=== PATIENT | female | born 1970 | race Caucasian/White ===

== ENCOUNTER 2016-10-02 02:48 | Emergency (ER) | payer BC, OTHER ==
[2016-10-02] MEDS ORDERED: Morphine INJ* 4 MG/ML 1 ML CARPUJECT IV ONE (03:20)
[2016-10-02] MEDS ORDERED: NS 0.9% 1000 ML* 1,000 ML IV ONE (03:20)
[2016-10-02] MEDS ORDERED: Ondansetron INJ* 2 MG/ML VIAL IV ONE ×2 (03:20→04:39)
[2016-10-02 03:36] LABS: Hematocrit 42 % (35-47); Hemoglobin 14.1 g/dl (12.0-16.0); Mean Corpuscular HGB Conc 34 g/dl (31-36); Mean Corpuscular Hemoglobin 31 pg (27-31); Mean Corpuscular Volume 90 fL (80-97); Mean Platelet Volume 8 um3 (7.4-10.4); Red Cell Distribution Width 13 % (10.5-15); White Blood Count 5.6 10^3/ul (3.5-10.8)
[2016-10-02 03:48] LABS: ALT 10 U/L (7-52); AST 15 U/L (13-39); Albumin 4.1 g/dL (3.2-5.2); Alkaline Phosphatase 70 U/L (34-104); Anion Gap 6 mmol/L (2-11); BUN/Creatinine Ratio 21.2 (8-20); Blood Urea Nitrogen 14 mg/dL (6-24); CO2 Carbon Dioxide 22 mmol/L (22-32); Calcium 8.6 mg/dL (8.6-10.3); Chloride 106 mmol/L (101-111); EGFR African American 124.6 (>60); EGFR Non-African American 96.8 (>60); Globulin 2.7 g/dL (2-4); Glucose 106 mg/dL (70-100); Lipase 31 U/L (11.0-82.0); Potassium 3.7 mmol/L (3.5-5.0); Sodium 134 mmol/L (133-145); Total Protein 6.8 g/dL (6.4-8.9)
[2016-10-02 04:14] LABS: Urine Bacteria 1+ (Absent); Urine Bilirubin Negative (Negative); Urine Glucose Negative (Negative); Urine Nitrite Negative (Negative)
[2016-10-02] MEDS ORDERED: Ondansetron INJ* 2 MG/ML VIAL ONE (04:40)
[2016-10-02] MEDS ORDERED: Pantoprazole TAB (NF) 40 MG TAB PO ONE (06:29)
--- NOTE | 2016-10-02 06:33 | ED ---
Dominick Salas Matthew, scribed for Jaret Thurman on 10/02/16 at 0347 . Abdominal Pain/Female - HPI Summary HPI Summary: A 46 y/o female presents to the ED with Epigastric and RLQ abdominal pain since 07:30 yesterday. The pain is rated 7/10 in severity, and intermittently radiates to the back. Associated symptoms include nausea and diarrhea - since 4 days ago. The patient denies chest pain, SOB, urinary symptoms, and vaginal discharge. SHx includes cholecystectomy. - History of Current Complaint Chief Complaint: EDAbdPain Stated Complaint: VOMITING/ABD PAIN/NAUSEA Time Seen by Provider: 10/02/16 02:58 Hx Obtained From: Patient Hx Last Menstrual Period: pt had an ablasion and states does not get a menses ?: No Onset/Duration: Gradual Onset Timing: Constant Severity Initially: Moderate Severity Currently: Moderate Pain Intensity: 7 Pain Scale Used: 0-10 Numeric Location: Discrete At: RLQ, Epigastric Radiates: Yes Radiates to: Back Associated Signs and Symptoms: Positive: Back Pain, Nausea, Diarrhea. Negative : Chest Pain, Urinary Symptoms, Vaginal Bleeding, Vaginal Discharge Allergies/Adverse Reactions: Allergies Allergy/AdvReac Type Severity Reaction Status Date / Time Pseudoephedrine Allergy Severe Anaphylatic Verified 10/02/16 03:45 [From Sudafed] Shock Codeine Allergy Intermediate chest Verified 10/02/16 03:45 pain/adominal pain Clindamycin Allergy Mild Rash Verified 10/02/16 03:45 PMH/Surg Hx/FS Hx/Imm Hx Endocrine/Hematology History: Denies: Hx Diabetes, Hx Thyroid Disease Cardiovascular History: Denies: Hx Congestive Heart Failure, Hx Hypertension Respiratory History: Reports: Hx Sleep Apnea - previous dx KRISTOPHER, not using CPAP Denies: Hx Asthma, Hx Chronic Obstructive Pulmonary Disease (COPD) GI History: Reports: Hx Gastroesophageal Reflux Disease Denies: Hx Ulcer History: Denies: Hx Renal Disease Neurological History: Reports: Hx Migraine Psychiatric History: Reports: Hx Anxiety, Hx Depression, Hx Community Mental Health Tx - Cancer History Hx Chemotherapy: No Hx Radiation Therapy: No - Surgical History Surgery Procedure, Year, and Place: breast reduction 2000. tubal ligation 2007. gall bladder removed 1989. benign tumor removed from uterus 12/07/12. GANGLION [facility]. Uterine Ablation surgery. Uterine Ablation 2013. D&C Infectious Disease History: No Infectious Disease History: Denies: Hx Clostridium Difficile, Hx Hepatitis, Hx Human Immunodeficiency Virus (HIV), Hx of Known/Suspected MRSA, Hx Shingles, Hx Tuberculosis, Hx Known/ Suspected VRE, Hx Known/Suspected VRSA, History Other Infectious Disease, Traveled Outside the [place] in Last 30 Days - Family History Known Family History: Positive: Respiratory Disease - asthma - Social History Alcohol Use: None Substance Use Type: Reports: None Hx Tobacco Use: No Smoking Status (MU): Never Smoked Tobacco Have You Smoked in the Last Year: No Review of Systems Constitutional: Negative Eyes: Negative ENT: Negative Cardiovascular: Negative Respiratory: Negative Negative: Shortness Of Breath Positive: Abdominal Pain - epigastric, RLQ, Diarrhea, Nausea Genitourinary: Negative Musculoskeletal: Negative Skin: Negative Positive: Headache Psychological: Normal All Other Systems Reviewed And Are Negative: Yes Physical Exam Triage Information Reviewed: Yes Vital Signs On Initial Exam: Initial Vitals Temp Pulse Resp BP Pulse Ox 97.7 F 82 16 118/68 97 10/02/16 03:00 10/02/16 03:00 10/02/16 03:00 10/02/16 03:00 10/02/16 03:00 Vital Signs Reviewed: Yes Appearance: Positive: Well-Appearing, No Pain Distress Skin: Positive: Warm, Skin Color Reflects Adequate Perfusion, Dry Head/Face: Positive: Normal Head/Face Inspection Eyes: Positive: EOMI, BEBETO ENT: Positive: Normal ENT inspection Neck: Positive: Supple, Nontender Respiratory/Lung Sounds: Positive: Clear to Auscultation, Breath Sounds Present Cardiovascular: Positive: RRR Abdomen Description: Positive: Soft, Other: - epigastric and RLQ tenderness Bowel Sounds: Positive: Present Musculoskeletal: Positive: Normal, Strength/ROM Intact Neurological: Positive: Normal, Sensory/Motor Intact, Alert, Oriented to Person Place, Time Psychiatric: Positive: Normal, Affect/Mood Appropriate Diagnostics - Vital Signs Vital Signs Temp Pulse Resp BP Pulse Ox 10/02/16 03:06 87 97 10/02/16 03:05 118/68 10/02/16 03:00 97.7 F 82 16 118/68 97 - Laboratory Result Diagrams: 10/02/16 03:10 10/02/16 03:10 Lab Statement: Any lab studies that have been ordered have been reviewed, and results considered in the medical decision making process. - Radiology CXR Xray Interpretation: No Acute Changes Radiology Interpretation Completed By: ED Physician - CT A/P WO CT CT Interpretation: No Acute Changes - No localizing signs for acute pathology. CT Interpretation Completed By: Radiologist - EKG 03:21 Cardiac Rate: NL - 77 bpm EKG Rhythm: Sinus Rhythm EKG Interpretation: No Acute Changes Abdominal Pain Fem Course/Dx - Course Course Of Treatment: A 46 y/o female presents to the ED with Epigastric RLQ abdominal pain. Labs were reviewed. CXR shows no active cardiopulmonary disease. CT A/P shows no localizing signs for acute pathology. In the ED course , the patient was given Zofran, morphine, and 1L of IV fluids. The patient states that she feels better, so she will be discharged home and follow-up with her PCP. - Diagnoses Provider Diagnoses: Nonspecific abdominal pain Discharge - Discharge Plan Condition: Stable Disposition: HOME Prescriptions: Pantoprazole TAB (NF) [Protonix TAB (NF)] 40 mg PO DAILY #30 tab Patient Education Materials: Pantoprazole (By mouth), Abdominal Pain (ED) Referrals: Lor Roe MD [Primary Care Provider] - 3 Days Additional Instructions: Please follow-up with your primary care physician in 3 days. The documentation as recorded by the Dominick cain Matthew accurately reflects the service I personally performed and the decisions made by , Jaret Thurman.
[2016-10-02] MEDS ORDERED: Omeprazole CAP* 20 MG PO ONE (07:00)
[2016-10-02 07:01] VITALS: BP 102/66
--- NOTE | 2016-10-02 08:03 | RAD ---
HISTORY: Abdominal pain COMPARISONS: 07/15/2013 VIEWS: 2: Frontal dual-energy and lateral views of the chest. FINDINGS: CARDIOMEDIASTINAL SILHOUETTE: The cardiomediastinal silhouette is normal. MICHAEL: The michael are normal. PLEURA: The costophrenic angles are sharp. No pleural abnormalities are noted. LUNG PARENCHYMA: The lungs are clear. ABDOMEN: The upper abdomen is clear. There is no subphrenic gas. BONES AND SOFT TISSUES: No bone or soft tissue abnormalities are noted. OTHER: None. IMPRESSION: NO ACTIVE CARDIOPULMONARY DISEASE.
--- NOTE | 2016-10-02 08:19 | RAD ---
CLINICAL HISTORY: Abdominal pain COMPARISON: Similar CT of the abdomen and pelvis dated 10/03/2009 TECHNIQUE: Oral contrast only CT examination of the abdomen and pelvis from the lung bases through the initial tuberosities. FINDINGS: VISUALIZED LUNG BASES: The visualized lung bases are grossly clear. There is no pleural effusion. ABDOMEN AND PELVIS: Evaluation of the solid organs and vasculature is limited without intravenous contrast. The liver, pancreas and adrenal glands are grossly normal in appearance. The gallbladder is surgically absent. The spleen is mildly enlarged measuring 12.3 cm in greatest axial dimension similar to the previous CT examination. The kidneys are normal in appearance without focal mass, calcification or signs of hydronephrosis. The oral contrast has progressed as far as the rectosigmoid colon. The small and large bowel are not distended. The cecal appendix is not discretely visualized, but there are no acute inflammatory changes of the right lower quadrant to indicate acute appendicitis. There is no gross retroperitoneal or mesenteric lymphadenopathy. The pelvic viscera is normal in appearance. The abdominal aorta and iliac arteries are normal in course and diameter. Degenerative changes include multilevel loss of intervertebral disc height involving the lower thoracic and lumbar spine.There are no sinister bone lesions. IMPRESSION: Chronic CT findings as described in the body the report without acute abnormalities including acute inflammatory change of the gastrointestinal tract or obstructive uropathy.
== END 2016-10-02 07:00 | disposition home or self-care (01) ==
LOC: ED 02:48
DX: R10.31 Right lower quadrant pain (principal); R10.13 Epigastric pain; R19.7 Diarrhea, unspecified; R11.0 Nausea; R51 Headache
CPT/HCPCS: 36415; 71020; 74176; 80053; 81003; 81015; 83690; 84484; 84702; 85025; 85610; 85730; 87086; 93005; 96361; 96374; 96375; 99284; A9270-GY; J2270; J2405

== ENCOUNTER 2016-10-16 07:00 | Emergency (ER) | payer BC ==
[2016-10-16 19:11] VITALS: BP 155/100
--- NOTE | 2016-10-16 20:04 | UC ---
Throat Pain/Nasal Chris HPI - HPI Summary HPI Summary: complaint of cough and nasal congestion which started 2 days ago cough is worse at night sore throat frequent headaches voice has been hoarse for 1 day or so denies fevr and chills, muscle achiness N/V/D has been taking therafulu and tylenol with some relief - History of Current Complaint Chief Complaint: UCRespiratory Stated Complaint: SORE THROAT Time Seen by Provider: 10/16/16 19:57 Hx Obtained From: Patient Hx Last Menstrual Period: UTERINE ABLATION - Allergies/Home Medications Allergies/Adverse Reactions: Allergies Allergy/AdvReac Type Severity Reaction Status Date / Time Pseudoephedrine Allergy Severe Anaphylatic Verified 10/16/16 19:11 [From Sudafed] Shock Codeine Allergy Intermediate chest Verified 10/16/16 19:11 pain/adominal pain Clindamycin Allergy Mild Rash Verified 10/16/16 19:11 PMH/Surg Hx/FS Hx/Imm Hx Previously Healthy: Yes Endocrine History Of: Denies: Diabetes, Thyroid Disease Cardiovascular History Of: Denies: Cardiac Disorders, Hypertension, Congestive Heart Failure Respiratory History Of: Denies: COPD, Asthma GI/ History Of: Denies: Ulcer, Renal Disease Neurological History Of: Reports: Migraine Psychological History Of: Reports: Anxiety, Depression Cancer History Of: Denies: Breast Cancer - Surgical History Surgical History: Yes Surgery Procedure, Year, and Place: breast reduction 2000. tubal ligation 2007. gall bladder removed 1989. benign tumor removed from uterus 12/07/12. GANGLION [facility]. Uterine Ablation surgery. Uterine Ablation 2012. D&C - Family History Known Family History: Positive: Respiratory Disease - asthma Negative: Hypertension, Diabetes - Social History Occupation: Employed Full-time Lives: With Family Alcohol Use: None Substance Use Type: None Smoking Status (MU): Never Smoked Tobacco Have You Smoked in the Last Year: No - Immunization History Most Recent Influenza Vaccination: June 24, 2015 Most Recent Tetanus Shot: up to date - she thinks in 2014 she received it Review of Systems Eyes: Negative ENT: Sore Throat, Nasal Discharge Respiratory: Cough Cardiovascular: Negative Gastrointestinal: Negative Genitourinary: Negative Motor: Negative Neurovascular: Negative Musculoskeletal: Negative Neurological: Negative Psychological: Negative All Other Systems Reviewed And Are Negative: Yes Physical Exam Triage Information Reviewed: Yes Appearance: No Pain Distress, Well-Nourished, Obese Vital Signs: Initial Vital Signs Temp 98.1 F 10/16/16 19:08 Pulse 77 10/16/16 19:08 Resp 16 10/16/16 19:08 BP 155/100 10/16/16 19:08 Pulse Ox 98 10/16/16 19:08 Vital Signs Reviewed: Yes Eyes: Positive: Conjunctiva Clear ENT: Positive: Pharyngeal erythema, Nasal drainage, TMs normal. Negative: Nasal congestion Neck: Positive: No Lymphadenopathy Respiratory: Positive: Lungs clear, Normal breath sounds, No respiratory distress Cardiovascular: Positive: RRR, No Murmur, Pulses Normal Abdomen Description: Positive: Nontender, Soft Bowel Sounds: Positive: Present Musculoskeletal: Positive: No Edema Neurological Exam: Normal Psychological Exam: Normal Skin Exam: Normal Throat Pain/Nasal Course/Dx - Differential Dx/Diagnosis Differential Diagnosis/HQI/PQRI: Pharyngitis, URI Provider Diagnoses: URI Discharge - Discharge Plan Condition: Stable Disposition: HOME Prescriptions: Benzonatate CAP* [Tessalon CAP*] 100 mg PO TID PRN #30 cap PRN Reason: Cough Patient Education Materials: Upper Respiratory Infection (ED) Forms: *Work Release Referrals: Lor Roe MD [Primary Care Provider] - Additional Instructions: VIRAL UPPER RESPIRATORY INFECTION (COMMON COLD) What is Viral Upper Respiratory Infection? Viral upper respiratory infection is the medical term for the common cold. Respiratory infections can be caused by either a virus or bacteria. The common cold is caused by a virus. The virus travels through the air and can be passed easily from one person to another. This is one reason that it is so important to cover your mouth when you cough or sneeze. When you cover your mouth you will get the virus on your hands. If you touch something with that hand the virus is spread to the object you touch. Because of this you should be sure to wash your hands often when you have a cold. Symptoms usually begin 1 to 3 days after the virus takes hold in your body. Other people can catch your cold even before you start to notice symptoms, which is one reason why colds are hard to prevent. Symptoms May Include: Scratchiness or tickling in the throat Sore throat Stuffy nose Generalized aches and pains Coughing or sneezing Feeling tired Treatment Recommendations: Drink plenty of clear, nonalcoholic fluids, such as water, sports drinks, or juice. For example, an average adult should drink 8 ounces every hour, a child 6 to 10 years should drink 4 ounces every hour, and a child under 6 should drink 1 to 2 ounces every hour. You should rest as much as possible. You can use a cool-mist humidifier or steam vaporizer to increase air moisture. This will make it easier to breathe. Remember that a steam vaporizer may contain hot water that can cause severe simmons. If you smoke, stopsmoke irritates bronchial passages. If you are coughing up mucus, and milk seems to make the sputum thicker, do not eat or drink foods that contain milk. You want to try to cough up mucous whenever possible so that you dont get pneumonia. Do not use cough suppressant medicine without your healthcare providers [place]. You should take all medications prescribed until completely gone, or as instructed. Non-prescription medicine such as acetaminophen (Tylenol) or ibuprofen (Motrin , Advil) may help your aches, pains, and fever. Do not take someone else's medicine, or penicillin tablets that you may have saved. You could cause a more serious problem than you already have. Don't bundle up to sweat out a fever. It only makes your fever worse. If you feel cold, cover up; if you feel warm, dress lightly.
== END 2016-10-16 20:08 | disposition home or self-care (01) ==
LOC: UCEAST 17:56
DX: J06.9 Acute upper respiratory infection, unspecified (principal); Z88.5 Allergy status to narcotic agent; Z88.1 Allergy status to other antibiotic agents
CPT/HCPCS: 99212; G0463

== ENCOUNTER 2016-10-22 21:19 | Emergency (ER) | payer BC ==
[2016-10-22 21:40] VITALS: BP 139/88
[2016-10-22] MEDS ORDERED: HYDROcodone/ACETAMIN 5-325 MG* 1 TAB PO ONE (22:06)
--- NOTE | 2016-10-22 22:17 | UC ---
Respiratory Complaint HPI - HPI Summary HPI Summary: coughing, congested, ST, malaise, headache, neck pain, fatigue for 9 days. Was seen 6days ago, dx URI, "still coughing." Using OTC meds, not helping the cough which keeps her awake at night. - History of Current Complaint Chief Complaint: UCGeneralIllness Stated Complaint: COUGH Time Seen by Provider: 10/22/16 21:52 Hx Obtained From: Patient Hx Last Menstrual Period: UTERINE ABLATION Onset/Duration: Gradual Onset, Lasting Days - 8 Timing: Constant Severity Initially: Mild Severity Currently: Mild Character: Cough: Productive - occasional phlegm Aggravating Factors: Exertion, Recumbent Position Associated Signs And Symptoms: Positive: Chills, URI, Nasal Congestion, Hoarseness, Sinus Discomfort - Risk Factors Pulmonary Embolism Risk Factors: Negative Cardiac Risk Factors: Negative Pseudomonas Risk Factors: Negative Tuberculosis Risk Factors: Negative - Allergies/Home Medications Allergies/Adverse Reactions: Allergies Allergy/AdvReac Type Severity Reaction Status Date / Time Pseudoephedrine Allergy Severe Anaphylatic Verified 10/16/16 19:11 [From Sudafed] Shock Codeine Allergy Intermediate chest Verified 10/16/16 19:11 pain/adominal pain Clindamycin Allergy Mild Rash Verified 10/16/16 19:11 PMH/Surg Hx/FS Hx/Imm Hx Endocrine History Of: Denies: Diabetes, Thyroid Disease Cardiovascular History Of: Denies: Cardiac Disorders, Hypertension, Congestive Heart Failure Respiratory History Of: Denies: COPD, Asthma GI/ History Of: Denies: Ulcer, Renal Disease Neurological History Of: Reports: Migraine Psychological History Of: Reports: Anxiety, Depression Cancer History Of: Denies: Breast Cancer - Surgical History Surgical History: Yes Surgery Procedure, Year, and Place: breast reduction 2000. tubal ligation 2007. gall bladder removed 1989. benign tumor removed from uterus 12/07/12. [facility]GLION [facility]. Uterine Ablation surgery. Uterine Ablation 2012. D&C - Family History Known Family History: Positive: Respiratory Disease - asthma Negative: Hypertension, Diabetes - Social History Occupation: Employed Full-time Lives: With Family Alcohol Use: None Substance Use Type: None Smoking Status (MU): Never Smoked Tobacco Have You Smoked in the Last Year: No - Immunization History Most Recent Influenza Vaccination: June 24, 2015 Most Recent Tetanus Shot: up to date - she thinks in 2014 she received it Review of Systems Constitutional: Chills, Fatigue Skin: Negative Eyes: Negative ENT: Sore Throat, Nasal Discharge Respiratory: Cough Cardiovascular: Negative Gastrointestinal: Negative Genitourinary: Negative Motor: Negative Neurovascular: Negative Musculoskeletal: Myalgia, Other: - neck muscle pain Neurological: Headache, Weakness Psychological: Negative All Other Systems Reviewed And Are Negative: Yes Physical Exam Triage Information Reviewed: Yes Appearance: Well-Appearing, No Pain Distress, Well-Nourished Vital Signs: Initial Vital Signs Temp 99.0 F 10/22/16 21:35 Pulse 71 10/22/16 21:35 Resp 18 10/22/16 21:35 BP 139/88 10/22/16 21:35 Pulse Ox 97 10/22/16 21:35 Vital Signs Reviewed: Yes Eye Exam: Normal ENT: Positive: Pharynx normal, Nasal congestion, Nasal drainage, TMs normal, Muffled/hoarse voice - hoarse. Negative: Tonsillar swelling, Tonsillar exudate , Trismus Neck: Positive: Tenderness @ - mild posterior muscles Respiratory Exam: Normal Respiratory: Positive: Lungs clear, Normal breath sounds, No respiratory distress, No accessory muscle use Cardiovascular Exam: Normal Abdominal Exam: Normal Musculoskeletal Exam: Normal Neurological Exam: Normal Psychological Exam: Normal Skin Exam: Normal UC Diagnostic Evaluation - Laboratory O2 Sat by Pulse Oximetry: 97 Respiratory Course/Dx - Differential Dx/Diagnosis Differential Diagnosis/HQI/PQRI: Bronchitis, Lower Resp Infection, Sinusitis Provider Diagnoses: URI Discharge - Discharge Plan Condition: Stable Disposition: HOME Prescriptions: Albuterol HFA INHALER* [Ventolin HFA Inhaler*] 1 - 2 puff INH Q4H PRN #1 mdi PRN Reason: Cough Hydrocodone W/ Homatropine [Tussigon] 1 tab PO Q6HR PRN #30 tab MDD 4 tab PRN Reason: Cough Patient Education Materials: Upper Respiratory Infection (ED) Forms: *Work Release Referrals: Lor Roe MD [Primary Care Provider] -
== END 2016-10-22 22:16 | disposition home or self-care (01) ==
LOC: UCEAST 21:19
DX: J06.9 Acute upper respiratory infection, unspecified (principal); Z88.5 Allergy status to narcotic agent; Z88.1 Allergy status to other antibiotic agents; Z88.8 Allergy status to other drugs, medicaments and biological substances; Z90.49 Acquired absence of other specified parts of digestive tract
CPT/HCPCS: 99212; G0463

== ENCOUNTER 2017-02-23 14:31 | Emergency (ER) | payer SELFPAY ==
[2017-02-23] MEDS ORDERED: Ibuprofen TAB* 400 MG PO ONE (14:47)
[2017-02-23 14:49] VITALS: BP 132/67
[2017-02-23] MEDS ORDERED: Ibuprofen TAB* 400 MG ONE (14:52)
--- NOTE | 2017-02-23 15:36 | UC ---
Throat Pain/Nasal Chris HPI - HPI Summary HPI Summary: SORE THROAT FEVER RASH SINCE LAST NIGHT. - History of Current Complaint Chief Complaint: UCRespiratory Stated Complaint: URI Time Seen by Provider: 02/23/17 14:47 Hx Obtained From: Patient Hx Last Menstrual Period: does not get Onset/Duration: Gradual Onset, Lasting Hours, Still Present Severity: Moderate Cough: None Associated Signs & Symptoms: Positive: Dysphagia, Hoarseness, Fever - Epiglottits Risk Factors Epiglottis Risk Factors: Negative - Allergies/Home Medications Allergies/Adverse Reactions: Allergies Allergy/AdvReac Type Severity Reaction Status Date / Time Pseudoephedrine Allergy Severe Anaphylatic Verified 10/16/16 19:11 [From Sudafed] Shock Codeine Allergy Intermediate chest Verified 10/16/16 19:11 pain/adominal pain Clindamycin Allergy Mild Rash Verified 10/16/16 19:11 PMH/Surg Hx/FS Hx/Imm Hx Previously Healthy: Yes - Surgical History Surgical History: Yes Surgery Procedure, Year, and Place: breast reduction 2000. tubal ligation 2007. gall bladder removed 1989. benign tumor removed from uterus 12/07/12. GANGLION CYST. Uterine Ablation surgery. Uterine Ablation 2012. D&C - Family History Known Family History: Positive: Respiratory Disease - asthma Negative: Hypertension, Diabetes - Social History Occupation: Employed Full-time Lives: With Family Alcohol Use: None Substance Use Type: None Smoking Status (MU): Never Smoked Tobacco Have You Smoked in the Last Year: No - Immunization History Most Recent Influenza Vaccination: June 24, 2015 Most Recent Tetanus Shot: up to date - she thinks in 2014 she received it Review of Systems Constitutional: Fever, Chills Skin: Negative Eyes: Negative ENT: Sore Throat Respiratory: Negative Cardiovascular: Negative Gastrointestinal: Negative Genitourinary: Negative Motor: Negative Neurovascular: Negative Musculoskeletal: Negative Neurological: Negative Psychological: Negative All Other Systems Reviewed And Are Negative: Yes Physical Exam Triage Information Reviewed: Yes Appearance: No Pain Distress, Well-Nourished, Ill-Appearing Vital Signs: Initial Vital Signs Temp 102.0 F 02/23/17 14:44 Pulse 106 02/23/17 14:44 Resp 20 02/23/17 14:44 BP 132/67 02/23/17 14:44 Pulse Ox 100 02/23/17 14:44 Vital Signs Reviewed: Yes Eye Exam: Normal ENT: Positive: Hearing grossly normal, Pharyngeal erythema, TMs normal, Tonsillar swelling Dental Exam: Normal Neck exam: Normal Neck: Positive: Supple, Nontender, No Lymphadenopathy Respiratory Exam: Normal Respiratory: Positive: Chest non-tender, Lungs clear, Normal breath sounds, No respiratory distress, No accessory muscle use Cardiovascular Exam: Normal Cardiovascular: Positive: RRR, No Murmur Abdominal Exam: Normal Musculoskeletal Exam: Normal Musculoskeletal: Positive: Strength Intact Neurological Exam: Normal Psychological Exam: Normal Skin Exam: Normal Throat Pain/Nasal Course/Dx - Differential Dx/Diagnosis Differential Diagnosis/HQI/PQRI: Pharyngitis, Tonsillitis, URI Provider Diagnoses: STREP TONSILLITIS Discharge - Discharge Plan Condition: Stable Disposition: HOME Prescriptions: Amoxicillin (*) [Amoxicillin 875 MG (*)] 875 mg PO BID #20 tab Patient Education Materials: Strep Throat (ED) Forms: *Work Release Referrals: Lor Roe MD [Primary Care Provider] -
== END 2017-02-23 15:26 | disposition home or self-care (01) ==
LOC: UCEAST 14:31
DX: J03.00 Acute streptococcal tonsillitis, unspecified (principal); Z88.5 Allergy status to narcotic agent; Z88.1 Allergy status to other antibiotic agents; Z88.8 Allergy status to other drugs, medicaments and biological substances; Z90.49 Acquired absence of other specified parts of digestive tract
CPT/HCPCS: 87651; 99212; A9270-GY; G0463

== ENCOUNTER 2017-03-22 11:35 | Emergency (ER) | payer SELFPAY ==
[2017-03-22 13:53] VITALS: BP 121/80
--- NOTE | 2017-03-22 14:40 | UC ---
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, nonknown injury - History of Current Complaint Hx Obtained From: Patient Hx Last Menstrual Period: ablation 2013 ?: No Onset/Duration: Gradual Onset, Lasting Weeks - 4, Still Present Severity Initially: Moderate Severity Currently: Moderate Pain Intensity: 5 Pain Scale Used: 0-10 Numeric Aggravating Factor(s): Standing, Ambulation - working Alleviating Factor(s): Rest, Elevation Able to Bear Weight: Yes <Arcelia Gage - Last Filed: 03/24/17 15:41> <Marely Frias - Last Filed: 03/24/17 16:14> - History of Current Complaint Chief Complaint: UCLowerExtremity Stated Complaint: FOOT PAIN Time Seen by Provider: 03/22/17 14:37 - Allergies/Home Medications Allergies/Adverse Reactions: Allergies Allergy/AdvReac Type Severity Reaction Status Date / Time Pseudoephedrine Allergy Severe Anaphylatic Verified 03/22/17 11:55 [From Sudafed] Shock Codeine Allergy Intermediate chest Verified 03/22/17 11:55 pain/adominal pain Clindamycin Allergy Mild Rash Verified 03/22/17 11:55 PMH/Surg Hx/FS Hx/Imm Hx Previously Healthy: Yes - Surgical History Surgical History: Yes Surgery Procedure, Year, and Place: breast reduction 2000. tubal ligation 2007. gall bladder removed 1989. benign tumor removed from uterus 12/07/12. GANGLION CYST. Uterine Ablation surgery. Uterine Ablation 2012. D&C - Family History Known Family History: Positive: Respiratory Disease - asthma Negative: Hypertension, Diabetes - Social History Occupation: Employed Full-time Lives: With Family Alcohol Use: None Substance Use Type: None Smoking Status (MU): Never Smoked Tobacco Have You Smoked in the Last Year: No - Immunization History Most Recent Influenza Vaccination: June 24, 2015 Most Recent Tetanus Shot: up to date - she thinks in 2014 she received it <Arcelia Gage - Last Filed: 03/24/17 15:41> Review of Systems Constitutional: Negative Skin: Negative Eyes: Negative ENT: Negative Respiratory: Negative Cardiovascular: Negative Gastrointestinal: Negative Genitourinary: Negative Motor: Negative Neurovascular: Negative Musculoskeletal: Arthralgia - right foot Neurological: Negative Psychological: Negative All Other Systems Reviewed And Are Negative: Yes <Arcelia Gage - Last Filed: 03/24/17 15:41> Physical Exam Triage Information Reviewed: Yes Appearance: Well-Appearing, No Pain Distress, Well-Nourished Vital Signs: Initial Vital Signs Temp 98.7 F 03/22/17 11:51 Pulse 68 03/22/17 11:51 Resp 20 03/22/17 11:51 BP 115/74 03/22/17 11:51 Pulse Ox 99 03/22/17 11:51 Vital Signs Reviewed: Yes Eye Exam: Normal Eyes: Positive: Conjunctiva Clear ENT Exam: Normal ENT: Positive: Normal ENT inspection, Hearing grossly normal. Negative: Nasal congestion, Nasal drainage, Trismus, Muffled/hoarse voice Dental Exam: Normal Neck exam: Normal Neck: Positive: Supple, Nontender, No Lymphadenopathy Respiratory Exam: Normal Respiratory: Positive: Chest non-tender, No respiratory distress, No accessory muscle use Cardiovascular Exam: Normal Cardiovascular: Positive: RRR, Pulses Normal, Brisk Capillary Refill Musculoskeletal Exam: Normal Musculoskeletal: Positive: Strength Intact, ROM Intact, No Edema Neurological Exam: Normal Neurological: Positive: Alert, Muscle Tone Normal Psychological Exam: Normal Skin Exam: Normal <Arcelia Gage - Last Filed: 03/24/17 15:41> Vital Signs: Initial Vital Signs Temp 98.7 F 03/22/17 11:51 Pulse 68 03/22/17 11:51 Resp 03/22/17 11:51 BP 115/74 03/22/17 11:51 Pulse Ox 99 03/22/17 11:51 <Marely Frias - Last Filed: 03/24/17 16:14> Lower Extremity Course/Dx - Course Course Of Treatment: cam boot, nsaids, ice follow with podiatry - Differential Dx/Diagnosis Differential Diagnosis/HQI/PQRI: Contusion, Fracture (Closed), Sprain, Strain Provider Diagnoses: Right foot pain--repeatitive stress injury <Arcelia Gage - Last Filed: 03/24/17 15:41> Discharge <Arcelia Gage - Last Filed: 03/24/17 15:41> <Marely Frias - Last Filed: 03/24/17 16:14> - Discharge Plan Condition: Stable Disposition: HOME Prescriptions: Naproxen Sodium [Naproxen Sodium 500 MG TAB] 500 mg PO BID PRN #28 tab PRN Reason: foot pain Patient Education Materials: Foot Sprain (ED), Ice Pack Application (ED) Forms: *Work Release Referrals: Lor Roe MD [Primary Care Provider] - 1 Week Sunny Mirza DPM [Doctor of Podiatric Medicine] - As Soon As Possible Attestation Statement User Type: Provider - I was available for consult. This patient was seen by the [facility]. The patient was not presented to, seen by, or examined by me. -Leida <Marely Frias - Last Filed: 03/24/17 16:14>
== END 2017-03-22 15:00 | disposition home or self-care (01) ==
LOC: UCEAST 11:35
DX: M79.671 Pain in right foot (principal); Z88.1 Allergy status to other antibiotic agents; Z88.5 Allergy status to narcotic agent
CPT/HCPCS: 99213; G0463

== ENCOUNTER 2017-08-02 11:00 | Emergency (ER) | payer BC ==
[2017-08-02] MEDS ORDERED: Aspirin Low Dose CHEW TAB* 81 MG PO ONE (11:17)
[2017-08-02 12:06] LABS: Hematocrit 42 % (35-47); Hemoglobin 14.4 g/dl (12.0-16.0); Mean Corpuscular HGB Conc 34 g/dl (31-36); Mean Corpuscular Hemoglobin 31 pg (27-31); Mean Corpuscular Volume 90 fL (80-97); Mean Platelet Volume 8 um3 (7.4-10.4); Red Blood Count 4.65 10^6/ul (4.0-5.4); Red Cell Distribution Width 13 % (10.5-15); White Blood Count 5.6 10^3/ul (3.5-10.8)
--- NOTE | 2017-08-02 12:17 | RAD ---
INDICATION: Chest pain. COMPARISON: Comparison is made with a prior study from October 02, 2016. TECHNIQUE: A portable view of the chest was obtained. FINDINGS: Cardiac and mediastinal contours appear to be within normal limits. The lungs are clear. No pleural effusion is seen. IMPRESSION: NO EVIDENCE FOR ACUTE DISEASE.
[2017-08-02 12:25] LABS: ALT 10 U/L (7-52); AST 16 U/L (13-39); Albumin 4.2 g/dL (3.2-5.2); Alkaline Phosphatase 61 U/L (34-104); Anion Gap 5 mmol/L (2-11); BUN/Creatinine Ratio 17.9 (8-20); Blood Urea Nitrogen 12 mg/dL (6-24); CO2 Carbon Dioxide 26 mmol/L (22-32); Calcium 9.3 mg/dL (8.6-10.3); Chloride 105 mmol/L (101-111); Creatine Kinase 64 U/L (10-223); EGFR African American 122.4 (>60); EGFR Non-African American 95.2 (>60); Globulin 2.7 g/dL (2-4); Glucose 109 mg/dL (70-100); Potassium 4.2 mmol/L (3.5-5.0); Sodium 136 mmol/L (133-145); Total Protein 6.9 g/dL (6.4-8.9)
[2017-08-02] MEDS ORDERED: hydrOXYzine HCL TAB* 25 MG PO ONE (12:49)
[2017-08-02] MEDS ORDERED: Ketorolac INJ* 30 MG/ML 1 ML VIAL IV PUSH ONE (12:49)
[2017-08-02 13:31] LABS: Urine Bilirubin Negative (Negative); Urine Glucose Negative (Negative); Urine Nitrite Negative (Negative)
[2017-08-02 13:49] LABS: TSH (Thyroid Stimulating Horm) 3.74 mcIU/mL (0.34-5.60)
[2017-08-02 14:02] VITALS: BP 114/75
--- NOTE | 2017-08-06 12:39 | ED ---
Barbara Salas Thomas, scribed for Jono Velarde MD on 08/02/17 at 1157 . HPI Chest Pain - HPI Summary HPI Summary: The pt is a 46 y/o F presenting to the ED c/o chest pressure that began one week ago. The chest pressure is intermittent. The pain is rated 1/10. The pain is aggravated by exertion and lying down. 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 Pt additionally c/o dizziness. Pt denies N/V, fever, chills, and cough. PMHx includes anxiety and depression. - History of Current Complaint Chief Complaint: EDChestPainROMI Time Seen by Provider: 08/02/17 11:17 Hx Obtained From: Patient Hx Last Menstrual Period: ablasion Onset/Duration: Started Weeks Ago - 1, Still Present Timing: Intermittent Current Severity: Mild Pain Intensity: 1 Pain Scale Used: 0-10 Numeric Character: Pressure/Squeezing Aggravating Factor(s): Exertion, Recumbent Position Associated Signs and Symptoms: Negative: Other: - N/V, fever, chills, cough - Allergy/Home Medications Allergies/Adverse Reactions: Allergies Allergy/AdvReac Type Severity Reaction Status Date / Time Pseudoephedrine Allergy Severe Anaphylatic Verified 07/08/17 18:30 [From Sudafed] Shock Codeine Allergy Intermediate chest Verified 07/08/17 18:30 pain/adominal pain Clindamycin Allergy Mild Rash Verified 07/08/17 18:30 Home Medications: Home Medications NK [No Home Medications Reported] 08/02/17 [History Confirmed 08/02/17] PMH/Surg Hx/FS Hx/Imm Hx Previously Healthy: No Endocrine/Hematology History: Denies: Hx Diabetes, Hx Thyroid Disease Cardiovascular History: Denies: Hx Congestive Heart Failure, Hx Hypertension Respiratory History: Reports: Hx Sleep Apnea - previous dx KRISTOPHER, not using CPAP Denies: Hx Asthma, Hx Chronic Obstructive Pulmonary Disease (COPD) GI History: Reports: Hx Gastroesophageal Reflux Disease Denies: Hx Ulcer History: Denies: Hx Renal Disease Neurological History: Reports: Hx Migraine Psychiatric History: Reports: Hx Anxiety, Hx Depression, Hx Community Mental Health Tx - Cancer History Hx Chemotherapy: No Hx Radiation Therapy: No - Surgical History Surgery Procedure, Year, and Place: breast reduction 2000. tubal ligation 2007. gall bladder removed 1989. benign tumor removed from uterus 12/07/12. GANGLION CYST. Uterine Ablation surgery. Uterine Ablation 2012. D&C Infectious Disease History: No Infectious Disease History: Denies: Hx Clostridium Difficile, Hx Hepatitis, Hx Human Immunodeficiency Virus (HIV), Hx of Known/Suspected MRSA, Hx Shingles, Hx Tuberculosis, Hx Known/ Suspected VRE, Hx Known/Suspected VRSA, History Other Infectious Disease, Traveled Outside the [place] in Last 30 Days - Family History Known Family History: Positive: Respiratory Disease - asthma Negative: Hypertension, Diabetes - Social History Alcohol Use: None Substance Use Type: Reports: None Hx Tobacco Use: No Smoking Status (MU): Never Smoked Tobacco Have You Smoked in the Last Year: No Review of Systems Negative: Fever, Chills Positive: Other - Chest pressure Negative: Cough Negative: Vomiting, Nausea All Other Systems Reviewed And Are Negative: Yes Physical Exam - Summary Physical Exam Summary: VITAL SIGNS: Reviewed. GENERAL: Patient is a well-developed and nourished female who is lying comfortable in the stretcher. Patient is not in any acute respiratory distress. HEAD AND FACE: No signs of trauma. No ecchymosis, hematomas or skull depressions. No sinus tenderness. EYES: PERRLA, EOMI x 2, No injected conjunctiva, no nystagmus. EARS: Hearing grossly intact. Ear canals and tympanic membranes are within normal limits. MOUTH: Oropharynx within normal limits. NECK: Supple, trachea is midline, no adenopathy, no JVD, no carotid bruit, no c- spine tenderness, neck with full ROM. CHEST: Symmetric, no tenderness at palpation LUNGS: Clear to auscultation bilaterally. No wheezing or crackles. CVS: Regular rate and rhythm, S1 and S2 present, no murmurs or gallops appreciated. ABDOMEN: Soft, non-tender. No signs of distention. No rebound no guarding, and no masses palpated. Bowel sounds are normal. EXTREMITIES: FROM in all major joints, no edema, no cyanosis or clubbing. NEURO: Alert and oriented x 3. No acute neurological deficits. Speech is normal and follows commands. SKIN: Dry and warm Triage Information Reviewed: Yes Vital Signs On Initial Exam: Initial Vitals Temp Pulse Resp BP Pulse Ox 98.5 F 88 18 143/85 100 08/02/17 11:07 08/02/17 11:07 08/02/17 11:07 08/02/17 11:07 08/02/17 11:07 Vital Signs Reviewed: Yes Diagnostics - Vital Signs Vital Signs Temp Pulse Resp BP Pulse Ox 08/02/17 11:38 85 18 99 08/02/17 11:35 124/78 08/02/17 11:07 98.5 F 88 18 143/85 100 - Laboratory Result Diagrams: 08/02/17 11:45 08/02/17 11:45 Lab Statement: Any lab studies that have been ordered have been reviewed, and results considered in the medical decision making process. - Radiology CXR Xray Interpretation: No Acute Changes - No evidence for acute disease. ED physician has reviewed this report and agrees. Radiology Interpretation Completed By: Radiologist Re-Evaluation - Re-Evaluation First Eval Re-Evaluation Time: 13:39 Change: Improved Comment: The patient is feeling better. Chest Pain Course/Dx - Course Assessment/Plan: The pt is a 46 y/o F presenting to the ED c/o chest pressure that began one week ago. The chest pressure is intermittent. The pain is rated 1 /10. The pain is aggravated by exertion and lying down. 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 Pt additionally c/o dizziness. Pt denies N/V, fever, chills, and cough. PMHx includes anxiety and depression. Test results are without significant abnormalities. In the reassessment of the patient, the chest pain is reproducible at palpation. The patient was given Toradol for the pain and her symptoms resolved. There is no suspicion for pulmonary embolism since the patient is no hypoxic and is not tachycardic. The patient will be discharged home with follow up by primary care. The patient is hemodynamically stable and alert and oriented x3. - Diagnoses Provider Diagnoses: Atypical chest pain Discharge - Discharge Plan Condition: Stable Disposition: HOME Patient Education Materials: Chest Pain (ED) Referrals: Lor Roe MD [Primary Care Provider] - 3 Days Additional Instructions: Follow up with your primary care provider in 3 days. Return to the emergency department for any new or worsening symptoms. The documentation as recorded by the Barbara cain Thomas accurately reflects the service I personally performed and the decisions made by , Jono Velarde MD.
== END 2017-08-02 14:12 | disposition home or self-care (01) ==
LOC: ED 11:00
DX: R07.89 Other chest pain (principal)
CPT/HCPCS: 36415; 71010; 80053; 81003; 82550; 82553; 83605; 83880; 84443; 84484; 84702; 85025; 93005; 96374; 99284; A9270-GY; J1885

== ENCOUNTER 2017-09-06 15:57 | Emergency (ER) | payer BC ==
[2017-09-06 16:36] VITALS: BP 134/80
--- NOTE | 2017-09-06 17:09 | UC ---
Back Pain HPI - HPI Summary HPI Summary: 47 yo WF c/o acute right lower back spasm x 2 days. 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 Denies radiculopathy today - History of Current Complaint Chief Complaint: UCBackPain Stated Complaint: BACK PAIN Time Seen by Provider: 09/06/17 16:40 Hx Obtained From: Patient Hx Last Menstrual Period: 2012- ?: No Onset/Duration: Sudden Onset Timing: Intermittent Severity Initially: Severe Severity Currently: Moderate Back Pain: Is Discrete @ Character: Sharp, Spasmodic Aggravating Factor(s): Movement, Lifting, Bending, Walking Alleviating Factor(s): Nothing Associated Signs And Symptoms: Positive: Pain with Weight Bearing. Negative: Tingling, Bladder Incontinence, Bowel Incontinence, Weight Loss - Allergies/Home Medications Allergies/Adverse Reactions: Allergies Allergy/AdvReac Type Severity Reaction Status Date / Time Pseudoephedrine Allergy Severe Anaphylatic Verified 09/06/17 16:36 [From Sudafed] Shock Codeine Allergy Intermediate chest Verified 09/06/17 16:36 pain/adominal pain Clindamycin Allergy Mild Rash Verified 09/06/17 16:36 PMH/Surg Hx/FS Hx/Imm Hx Previously Healthy: Yes - Surgical History Surgical History: Yes Surgery Procedure, Year, and Place: breast reduction 2000. tubal ligation 2007. gall bladder removed 1989. benign tumor removed from uterus 12/07/12. GANGLION CYST. Uterine Ablation surgery. Uterine Ablation 2012. D&C - Family History Known Family History: Positive: Respiratory Disease - asthma Negative: Hypertension, Diabetes - Social History Alcohol Use: None Substance Use Type: None Smoking Status (MU): Never Smoked Tobacco Have You Smoked in the Last Year: No - Immunization History Most Recent Influenza Vaccination: June 24, 2015 Most Recent Tetanus Shot: up to date - she thinks in 2014 she received it Review of Systems Constitutional: Negative Skin: Negative Eyes: Negative ENT: Negative Respiratory: Negative Cardiovascular: Negative Gastrointestinal: Negative Genitourinary: Negative Motor: Negative Neurovascular: Negative Musculoskeletal: Decreased ROM - right LBP, Other: Neurological: Negative - no weakness or paresthesias Psychological: Negative All Other Systems Reviewed And Are Negative: Yes Physical Exam Triage Information Reviewed: Yes Appearance: Ill-Appearing Vital Signs: Initial Vital Signs Temp 37.4 C 09/06/17 16:32 Pulse 78 09/06/17 16:32 Resp 18 09/06/17 16:32 BP 134/80 09/06/17 16:32 Pulse Ox 100 09/06/17 16:32 Eye Exam: Normal ENT Exam: Normal Dental Exam: Normal Neck exam: Normal Neck: Positive: 1 Respiratory Exam: Normal Cardiovascular Exam: Normal Abdominal Exam: Normal Musculoskeletal Exam: Normal Musculoskeletal: Positive: ROM Limited @, Other: - moderate Right paraspinal muscle tenderness without vertebral tenderness, NVI Neurological Exam: Normal Psychological Exam: Normal Skin Exam: Normal Back Pain Course/Dx - Course Course Of Treatment: zanaflex po qhs with or without Tylenol and Ibuprofen PRN - Differential Dx/Diagnosis Provider Diagnoses: right lower back spasm Discharge - Discharge Plan Condition: Stable Disposition: HOME Prescriptions: Acetaminophen TAB* [Tylenol TAB*] 650 mg PO Q8HR 10 Days #30 tab Ibuprofen TAB* [Motrin TAB* 600 MG] 600 mg PO Q8H #30 tab tiZANidine TAB* [Zanaflex TAB*] 4 mg PO BEDTIME 10 Days #10 tab Patient Education Materials: Muscle Spasm (ED) Forms: *Work Release Referrals: Lor Roe MD [Primary Care Provider] - Additional Instructions: Rest, As tolerated, Work note- off until 09/13/2017
== END 2017-09-06 17:05 | disposition home or self-care (01) ==
LOC: UCEAST 15:57
DX: M62.830 Muscle spasm of back (principal); Z90.49 Acquired absence of other specified parts of digestive tract; Z88.1 Allergy status to other antibiotic agents; Z88.5 Allergy status to narcotic agent
CPT/HCPCS: 99212; G0463

== ENCOUNTER 2018-06-02 15:55 | Emergency (ER) | payer BC ==
[2018-06-02 16:12] VITALS: BP 148/94
--- NOTE | 2018-06-02 17:32 | UC ---
Throat Pain/Nasal Chris HPI - HPI Summary HPI Summary: 47 y/o female presents to the urgent care c/o sore throat and SORIANO for the past 5 days. Mild nasal congestion w/ clear nasal discharge. Pain w/ swallowing is 5/ 10. She has taking Ibuprofen PO prn to alleviate symptoms. She is concerned since her grand children were recently DX w/ Hand foot Mouth disease. She has a discrete blister in her hand which appeared yesterday. Pt has subjective fever the first day of symptoms Pt denies SOB, cough, chest pain, dizziness, abdominal pain, N/V/D. - History of Current Complaint Chief Complaint: UCRespiratory Stated Complaint: THROAT PAIN Time Seen by Provider: 06/02/18 17:12 Hx Obtained From: Patient Hx Last Menstrual Period: 2012- ?: No Onset/Duration: Gradual Onset, Lasting Days - 5 days, Still Present Severity: Mild Pain Intensity: 6 Pain Scale Used: 0-10 Numeric Cough: Nonproductive Associated Signs & Symptoms: Positive: Dysphagia, Nasal Discharge - clear - Epiglottits Risk Factors Epiglottis Risk Factors: Negative - Allergies/Home Medications Allergies/Adverse Reactions: Allergies Allergy/AdvReac Type Severity Reaction Status Date / Time clindamycin Allergy Rash Verified 06/02/18 16:13 codeine Allergy See Comment Verified 06/02/18 16:13 pseudoephedrine Allergy Anaphylatic Verified 06/02/18 16:13 Shock Home Medications: Home Medications Cpm/PE/Dm/Acetaminophen/Guaifn [Tylenol Cold-Flu Day-Nt Caplet] 1 tab PO Q8HR PRN 06/02/18 [History Confirmed 06/02/18] PMH/Surg Hx/FS Hx/Imm Hx Previously Healthy: Yes - Pt denies PMHX - Surgical History Surgical History: Yes Surgery Procedure, Year, and Place: breast reduction 2000. tubal ligation 2007. gall bladder removed 1989. benign tumor removed from uterus 12/07/12. GANGLION CYST. Uterine Ablation surgery. Uterine Ablation 2012. D&C - Family History Known Family History: Positive: Hypertension, Respiratory Disease - asthma Negative: Diabetes Family History: Dyslipidemia - Social History Occupation: Employed Full-time Lives: With Family Alcohol Use: None Substance Use Type: None Smoking Status (MU): Never Smoked Tobacco Have You Smoked in the Last Year: No - Immunization History Most Recent Influenza Vaccination: June 24, 2015 Most Recent Tetanus Shot: up to date - she thinks in 2015 she received it Review of Systems Constitutional: Negative Skin: Negative Eyes: Negative ENT: Sore Throat, Nasal Discharge - clear Respiratory: Cough - dry Cardiovascular: Negative Gastrointestinal: Negative Genitourinary: Negative Motor: Negative Neurovascular: Negative Musculoskeletal: Negative Neurological: Headache Psychological: Negative Is Patient Immunocompromised?: No All Other Systems Reviewed And Are Negative: Yes Physical Exam - Summary Physical Exam Summary: VITAL SIGNS: Reviewed. GENERAL: Patient is a well developed and nourished female who is sitting comfortable in the examining table. Patient is not in any acute respiratory distress. HEAD AND FACE: No signs of trauma. No ecchymosis, hematomas or skull depressions. No sinus tenderness. EYES: PERRLA, EOMI x 2, No injected conjunctiva, no nystagmus. No photophobia. EARS: Hearing grossly intact. Ear canals and tympanic membranes are within normal limits. MOUTH: Positive pharynx with erythema, no exudates, palatal petechiae. B/L tonsillar enlargement with exudate RT>LF. Uvula in midline. NECK: Supple, trachea is midline, Positive anterior cervical lymphadenopathy, no JVD, no carotid bruit, no c-spine tenderness, neck with full ROM. No meningeal signs, no Kernig's or brudzinskis signs. CHEST: Symmetric, no tenderness at palpation LUNGS: Clear to auscultation bilaterally. No wheezing or crackles. CVS: Regular rate and rhythm, S1 and S2 present, no murmurs or gallops appreciated. ABDOMEN: Soft, non-tender. No signs of distention. No rebound no guarding, and no masses palpated. Bowel sounds are normal. EXTREMITIES: FROM in all major joints, no edema, no cyanosis or clubbing. NEURO: Alert and oriented x 3. No acute neurological deficits. Speech is normal and follows commands. SKIN: Dry and warm Triage Information Reviewed: Yes Vital Signs: Initial Vital Signs Temp 98.5 F 06/02/18 16:07 Pulse 93 06/02/18 16:07 Resp 16 06/02/18 16:07 BP 148/94 06/02/18 16:07 Pulse Ox 98 06/02/18 16:07 Throat Pain/Nasal Course/Dx - Course Course Of Treatment: 47 y/o female presents to the urgent care c/o sore throat and SORIANO for the past 5 days. Mild nasal congestion w/ clear nasal discharge. Pain w/ swallowing is 5/10. She has taking Ibuprofen PO prn to alleviate symptoms. She is concerned since her grand children were recently DX w/ Hand foot Mouth disease. She has a discrete blister in her hand which appeared yesterday. Pt has subjective fever the first day of symptoms Pt denies SOB, cough, chest pain, dizziness, abdominal pain, N/V/D.Hx obtained. Rapid strep ordered, result: negative. Viral pharyngitis.Pt Rx ibuprofen PO to alleviates symptoms of pain and swelling. Advised on hand washing to avoid spreading. Pt advised to rest, eat well and avoid strenuous exercise. If symptoms do not improve or worsen advised to return to the urgent care or f/u with her PCP for further evaluation and treatment. Pt's BP is elevated today advised to decrease salt in diet, monitor BP and f/u with PCP for further management. Pt understood and agreed w/ plan of care. - Differential Dx/Diagnosis Differential Diagnosis/HQI/PQRI: Influenza, Laryngitis, Otitis Media, Pharyngitis, Sinusitis, Tonsillitis, URI Provider Diagnoses: 1- Viral pharyngitis. 2- elevated BP w/o Hx of HTN Discharge - Sign-Out/Discharge Documenting (check all that apply): Patient Departure - D/C home All imaging exams completed and their final reports reviewed: No Studies - Discharge Plan Condition: Stable Disposition: HOME Prescriptions: Ibuprofen TAB* [Motrin TAB* 800 MG] 800 mg PO Q6H PRN #30 tab PRN Reason: Pain Patient Education Materials: Pharyngitis (ED), Low-Sodium Diet (ED) Forms: *Work Release Referrals: Delano Hylton DO [Primary Care Provider] - 3 Days Additional Instructions: 1-Please take ibuprofen PO q6-8hrs prn as instructed after meals to alleviate pain and swelling. Increase fluid intake, eat well, rest and avoid strenuous exercise 2-If symptoms do not improve or worsen please return to the urgent care or f/u with your PCP for further evaluation and treatment. 3-Your BP is elevated today. please decrease salt in your diet, monitor BP and if it continues to be elevated please f/u with your PCP for further management - Billing Disposition and Condition Condition: STABLE Disposition: Home - Attestation Statements Provider Attestation: Per institutional requirements, I have reviewed the chart, however, I was not consulted specifically or made aware of this patient by the midlevel provider. I did not personally evaluate, interact with , or disposition this patient.
== END 2018-06-02 17:55 | disposition home or self-care (01) ==
LOC: UCEAST 15:55
DX: J02.8 Acute pharyngitis due to other specified organisms (principal); R03.0 Elevated blood-pressure reading, without diagnosis of hypertension; Z88.1 Allergy status to other antibiotic agents; Z88.5 Allergy status to narcotic agent; Z88.8 Allergy status to other drugs, medicaments and biological substances
CPT/HCPCS: 87651; 99212; G0463

== ENCOUNTER 2018-07-03 15:43 | Emergency (ER) | payer BC ==
--- OUTSIDE RECORDS SUMMARY | 2018-07-03 15:49 | XMS REPORT ---
:1970 External Reference #:[id number] Author Organization reception centre manager [facility] Address [address] [place] [address] Phone [phone] Care Team Providers Name Role Phone Angela Nelson MD Primary Care Physician Unavailable Payers Type Date Identification Numbers Payment Provider Subscriber Commercial Policy Number: [id number] Radha RIOS/BS [place] John Salcedo [place] PayID: [id number] [address] [address] [place] [address] Problems Description No Information Family History Date Family Member(s) Problem(s) Comments Father Healthy Mother Asthma Mother Emphysema Number of Children 5 First Son A&W Second Son A&W Third Son A&W First Daughter A&W Second Daughter A&W Number of Siblings Siblings: 2 First Brother Asthma Second Brother Asthma Paternal Grandmother due to Colon Cancer () Paternal Grandmother due to Cancer, Brain () Paternal Aunts Breast Cancer Dx 40s, Great Aunt Social History Type Date Description Comments Marital Status Patient is single Living Situation Lives with sons Diet Diet is healthy and well balanced 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 Cigarette Use Never smoked cigarettes Alcohol Drinks alcohol occasionally Smoking Patient has never smoked Drug Use Denies drug use Daily Caffeine Drinks on average 1 soda a day Exercise Type/Frequency Current Does not exercise Seat Belt/Car Seat Always uses a seat belt Currently Active The patient is currently not sexually active STD's Has chlamydia and HPV Allergies, Adverse Reactions, Alerts Date Description Reaction Status Severity Comments 04/20/2007 Clindamycin active 04/20/2007 Tylenol 3 active 04/20/2007 Sudafed active Medications Medication Date Status Form Strength Qnty SIG Indications Ordering Provider Cymbalta / Active Caps DR 60mg 2 by Unknown 0000 Part mouth every day Valacyclovir HCL / Active Tablets 500mg 1 by Unknown 0000 mouth every day Hydrocortisone 12/19/ Hx Ointment 0.5% 1Tube apply to Constance Acetate 2008 - affected Mg 06/06/ area INTERPRETER, [facility] 2018 twice to three times daily as needed Benadryl 12/19/ Hx Capsules 25mg 60caps one to Constance 2008 - two tabs Mg 06/06/ PO q 6-8 INTERPRETER, [facility] 2018 hours as needed Ibuprofen 12/13/ Hx Tablets 600mg 30tabs 1 po q6 Shelley 2008 - hours Josh, [facility] 2017 Zovia 28 Day 12/13/ Hx Tablets 0.035mg;1 1Pack 1 PO qd Shelley 2007 - mg Josh, [facility] 2017 Metronidazole 11/24/ Hx Tablets 500mg 14tabs One Radames Tammy 2007 - Tablet C.N.M. 12/13/ Twice A 2007 Day For 7 Days 10/13/ Hx 1Garme use as Morgan Abdominal 2007 - t instructe Kristian Soares 12/13/ rachel , [facility] 2007 Clotrimazole 09/16/ Hx Cream 1% 10Days apply to Morgan 2008 - affected Townsend 12/13/ area bid , [facility] 2007 Zantac 06/24/ Hx Granules 150mg 60unit 1 po bid Karen 2007 - s Jump, 12/13/ ANP-C 2008 04/20/ Hx Tablets 90tabs 1 PO qd Karen Vitamins 2007 - Jump, 12/13/ ANP-C 2008 Terazol 3 04/20/ Hx Cream 0.8% 1units use hs x Karen 2006 - 3 Jump, 05/30/ ANP-C 2007 Valtrex 04/20/ Hx Caplets 500mg 10caps 1 po bid Karen 2006 - x5 Jump, 12/13/ ANP-C 2007 Medications Administered in Office Medication Date Status Form Strength Qnty SIG Indications Ordering Provider PT SCRN Tbco Administered Injection Phaelon Id as Non User 018 MD Norah Vital Signs Date Vital Result Comment 06/07/2018 BP Systolic 138 mmHg BP Diastolic 90 mmHg Height 61 inches 5'1" Weight 209.00 lb BMI (Body Mass Index) 39.5 kg/m2 6 Parity 5 12/20/2007 BP Systolic 140 mmHg BP Diastolic 82 mmHg Height 64 inches 5'4" Weight 192.00 lb BMI (Body Mass Index) 33.0 kg/m2 Last Menstrual Period [id number] 6 Parity 5 12/14/2007 BP Systolic 116 mmHg BP Diastolic 70 mmHg Height 64 inches 5'4" Weight 191.00 lb BMI (Body Mass Index) 32.8 kg/m2 12/13/2007 BP Systolic 122 mmHg BP Diastolic 74 mmHg Body Temperature 97.7 F Heart Rate 68 /min Respiratory Rate 24 /min Height 64 inches 5'4" Weight 191.00 lb BMI (Body Mass Index) 32.8 kg/m2 Last Menstrual Period 4683212 6 Parity 5 11/25/2007 BP Systolic 110 mmHg BP Diastolic 60 mmHg Height 64 inches 5'4" Weight 190.00 lb BMI (Body Mass Index) 32.6 kg/m2 Results Test Date Test Result H/L Range Note HCG Urine 12/16/2007 Urine NEGATIVE Negative 1 Specific [place] 1.015 1.010-1.030 CBC With Electronic Diff 12/13/2007 White Blood Count 4.3 CUMM Low 4.8- 10.8 Abs Basophils 0 0-0.2 Abs Eosinophils 0.1 0-0.6 Absolute Neutrophil Count 2.1 1.5-7.7 Abs Lymphs 1.7 1.0-4.8 Abs Mononuclear 0.4 0-0.8 Basophil % 0.2 % 0-2 Hematocrit 40 % 35-47 Hemoglobin 13.9 g/dL 12.0-16.0 Eosinophil % 2.0 % 0-6 Gran % 49.5 % 38-83 Lymph % 39.1 % 20-45 Mean Corpuscular HGB Cone 35 g/dL 32-36 Mean Corpuscular Hemoglob 32 pg High 27-31 Mean Corpuscular Volume 91 um3 79-97 Mean Platelet Volume 8.3 um3 7.4-10.4 Mononuclear % 9.2 % High 1-9 Platelet Count 204 CUMM 150-450 Red Cell Count 4.43 CUMM 4.2-5.4 Redcell Distribution WDTH 13 % 10.5-15 Type And Screen 12/13/2007 Patient Blood Type O POSITIVE Antibody Screen NEGATIVE Specimen Discard Date 12/16/07 2 Laboratory test 10/14/2007 Genital For GRP B FINAL: NEGATIVE 3 finding Strep Only <SEE NOTE> Laboratory test 09/27/2007 Urine Culture SPECIMEN CONTAIN 4 finding Sensitivi <SEE NOTE> GC/Chlamydia Dna Probe 08/18/2007 CHL By Aptima NEGATIVE Negative 5 GC By Aptima NEGATIVE Negative 6 Laboratory test finding 08/01/2007 Urine Culture SPECIMEN CONTAIN <SEE 7 Sensitivi NOTE> Urinalysis W/Microscopic 08/01/2007 Ua Color YELLOW Amorphous Sed-U 1+ Appearance-Urine CLEAR Bacteria-Urine 2+ Bilirubin-Ur NEGATIVE Negative Blood-Urine NEGATIVE Negative Epith Cells-Ur MANY Esterase-Urine NEGATIVE Negative Glucose-Urine NEGATIVE Negative Ketones-Urine TRACE Negative Mucus Urine SMALL Nitrite NEGATIVE Negative PH-Urine 5.0 5-9 Protein-Urine NEGATIVE Negative RBC-Urine 0-3 0-2 [id number] NEGATIVE Negative Specific [place]-Ur 1.011 1.010-1.030 WBC-Urine 1-5 0-5 Laboratory test 06/08/2007 Urine Culture NG 8 finding Sensitivi Laboratory test 05/03/2007 Cytology 9 finding <SEE NOTE> GC/ZHL On Thin Prep 05/03/2007 CHL On Thin Prep NEGATIVE Negative 10 Vial GC On Thin Prep Vial NEGATIVE Negative 11 Vad 05/02/2007 Vad Final NONREACTIVE Nonreactive 12 1 TS 05/02/2007 Patient Blood Type O POSITIVE Antibody Screen NEGATIVE Manual Diff PN 05/02/2007 RBC Morphology NORMAL Absolute Neutrophil Count 5.6 Atypical Lymph 1 % 0-6 Basophil 1 % 0-2 Eosenophil 2 % 0-6 Lymphocyte 18 % 5-47 Monocyte 5 % 0-13 Polysegmented Neutrophil 73 % 38-83 1 05/02/2007 Hepatitis B Surface Ag NEGATIVE Negative Rubella Screen IMMUNE Immune White Blood Count 7.7 CUMM 4.8-10.8 Hematocrit 39 % 35-47 Hemoglobin 13.2 g/dL 12.0-16.0 Mean Corpuscular HGB Cone 34 g/dL 32-36 Mean Corpuscular Hemoglob 32 pg High 27-31 Mean Corpuscular Volume 93 um3 79-97 Mean Platelet Volume 9.0 um3 7.4-10.4 Platelet Count 224 CUMM 150-450 Red Cell Count 4.13 CUMM Low 4.2-5.4 Redcell Distribution WDTH 14 % 10.5-15 RPR NON REACTIVE Nonreactive Hemoglobinopathy Profile 05/02/2007 Hgb Solubility Negative Negative Hgb A 97.5 % 94.0-98.0 Hgb S 0.0 % 0.0 Hgb C 0.0 % 0.0 Hgb A2 2.5 % 0.7-3.1 Hgb F 0.0 % 0.0-2.0 Hgb Variant COMMENT Interpretation COMMENT 13 Urine Culture 04/21/2007 Urine Culture SCANT NORMAL URE 14 Sensitivi Sensitivi <SEE NOTE> 1 If is still suspected, please repeat test after 48 to 72 hours. . 2 PREADMISSION TESTING SAMPLES FOR BLOOD BANK WILL BE HELD FOR 14 DAYS FROM THE DATE OF COLLECTION *IF* THE FOLLOWING CRITERIA ARE MET: 1) THE PATIENT HAS *NOT* BEEN IN THE LAST 3 MONTHS. 2) THE PATIENT HAS *NOT* BEEN TRANSFUSED IN THE LAST 3 MONTHS. PREADMISSION TESTING SAMPLES WILL *NOT* BE HELD FOR 14 DAYS FROM PATIENTS WHO IN THE LAST 3 MONTHS: 1) HAVE BEEN 2) HAVE BEEN TRANSFUSED THESE PATIENTS *MUST* BE COLLECTED WITHIN 3 DAYS OF THE SURGERY DATE. 3 FINAL: NEGATIVE FOR GROUP B STREPTOCOCCUS 4 SPECIMEN CONTAINS NORMAL URETHRAL OR PERINEAL SHABANA AND DOES NOT SUGGEST URINARY TRACT INFECTION 25^10-25,000 ORGANISMS/ML (MODERATE)^CCU 5 . A negative result does not preclude the presence of a C.trachomatis or N.gonorrhoeae infection because results are dependent on adequate specimen collection, absence of inhibitors, and sufficient rRNA to be detected. Test results may be affected by improper specimen collection, improper specimen storage, technical error, or specimen mixup. . 6 . A negative result does not preclude the presence of a C.trachomatis or N.gonorrhoeae infection because results are dependent on adequate specimen collection, absence of inhibitors, and sufficient rRNA to be detected. Test results may be affected by improper specimen collection, improper specimen storage, technical error, or specimen mixup. . 7 SPECIMEN CONTAINS NORMAL URETHRAL OR PERINEAL SHABANA AND DOES NOT SUGGEST URINARY TRACT INFECTION 25^10-25,000 ORGANISMS/ML (MODERATE)^CCU 8 FINAL: NO GROWTH DAY 2 (<1,000 CFU/mL) 9 --- RUN DATE: 05/05/07 [facility] NMI LIVE PAGE 1 RUN TIME: 921 Specimen Inquiry RUN USER: INTERFACE [id number] JOHN SALCEDO 36/F <REG REF 05/02> ([id number]) Karen Olivas CNP -- Specimen: [id number] SOUT Spec Date: 05/02/[address]: Karen Moncada mp METAL FRAMER Spec Type: CYTOLOGY Received: 05/03/07-1406 Copies to: SOURCE ECTOCERVICAL/ENDOCERVICAL Thin Prep with Reflex HPV Test PATIENT INFORMATION ACTUAL COLLECTION DATE: 05/02/07 ? YES LAST MENSTRUAL PERIOD: 02/04/07 PATIENT HISTORY: Prior Unknown ADEQUACY OF SPECIMEN Satisfactory for evaluation * Transformation zone component identified * DIAGNOSIS NEGATIVE FOR INTRAEPITHELIAL LESION OR MALIGNANCY * This Pap test was evaluated with the assistance of the ThinPrep Pap Test Imaging System. The Pap Smear is a screening test designed to aid in the detection of premalign ant and malignant conditions of the uterine cervix. It is not a diagnostic procedure a nd should not be used as the sole means of detecting cervical cancer. Both false- positive and false-negative reports do occur. Depending on your risk status, a Pap smear debi uld be obtained and evaluated every one to three years. Final Interpretation electronically signed by: Mariposa FAY([facility]) 05/05/07 092 2 -- -- DEPARTMENT OF PATHOLOGY, [address] [place] [address] [facility] Permit #[id number] Jhony Garcia M.D. Director of Laboratories Nelson Grimes II, M.D . Pathologist -- 10 . A negative result does not preclude the presence of a C.trachomatis or N.gonorrhoeae infection because results are dependent on adequate specimen collection, absence of inhibitors, and sufficient rRNA to be detected. Test results may be affected by improper specimen collection, improper specimen storage, technical error, or specimen mixup. . 11 . A negative result does not preclude the presence of a C.trachomatis or N.gonorrhoeae infection because results are dependent on adequate specimen collection, absence of inhibitors, and sufficient rRNA to be detected. Test results may be affected by improper specimen collection, improper specimen storage, technical error, or specimen mixup. . 12 FINAL INTERPRETATION: No HIV antibody is detected. . This information has been disclosed to you from confidential records which are protected by [facility] law. State law prohibits you from making further disclosure of this information without the specific written consent of the person to whom it pertains, or as otherwise permitted by law. Any unauthorized further disclosure in violation of state law may result in a fine or snf sentence or both. General authorization for the release of medical or other information is not, except in limited circumstances set forth in Part 63, Title 10, of [facility], sufficient authorization for further disclosure. Disclosure of confidential HIV information that occurs as the result of a general authorization for the release of medical or other information will be in violation of the state law and may result in a fine or a snf sentence. . 13 Normal adult hemoglobin present. 14 SCANT NORMAL URETHRAL OR PERINEAL SHABANA 10^1-10,000 ORGANISMS/ML (FEW)^CCU Procedures Date CPT Code Description Status 04/26/2018 Mammogram Completed 12/16/2007 35190 Laparoscopy W/Wo Transection W/Fulguration Of Oviducts Completed 11/04/2007 34822 Obstetric Care Routine Completed 10/13/2007 38066 Echography Uterus Follow-Up Or Repeat Completed 10/13/2007 53956 Echography Uterus Follow-Up Or Repeat Completed 09/16/2007 99172 Echography Uterus Follow-Up Or Repeat Completed 09/16/2007 11686 Echography Uterus Follow-Up Or Repeat Completed 08/04/2007 41844 Echography Uterus Follow-Up Or Repeat Completed 08/04/2007 33983 Echography Uterus Follow-Up Or Repeat Completed 08/01/2007 31016 Biophysical Profile W/ NST Completed 07/13/2007 71416 Echography Uterus Complete Completed 07/13/2007 54739 Echography Uterus Complete Completed 05/02/2007 74189 OB Ultrasound First Trimester Completed 04/20/2007 22286 Echography Uterus Limited Completed Encounters Type Date Location Provider CPT E/M Dx Office Visit 06/07/2018 3:00p [place] [address] N93.9 Office Visit 01/05/2008 3:00p [place] Office [address] Morgan Kristian, [facility] [address] V58.41 Office Visit 12/20/2007 1:20p [place] Office Constance Holliday NP, [facility] [address] 692.4 V45.89 Office Visit 12/14/2007 11:00a [place] Office [address] Shelley Josh, [facility] [address] 626.2 Office Visit 12/13/2007 9:00a [place] Office JOSE Oconnor [address] V72.83 Office Visit 05/27/2007 1:00p [place] Office LIZBET OconnorC [address] 112.9 616.10 V76.41 Plan of Care No Information Available
[2018-07-03 16:05] VITALS: BP 153/93
--- NOTE | 2018-07-03 16:16 | UC ---
Knee Pain HPI - HPI Summary HPI Summary: 3 days aof left knee swelling, , non radiating, denies redness, , denies trauma. pain worse with descending steps - History of Current Complaint Chief Complaint: UCLowerExtremity Stated Complaint: LEFT KNEE SWELLING Time Seen by Provider: 07/03/18 16:10 Hx Last Menstrual Period: 2012, ablasion Pain Intensity: 4 - Allergies/Home Medications Allergies/Adverse Reactions: Allergies Allergy/AdvReac Type Severity Reaction Status Date / Time clindamycin Allergy Rash Verified 07/03/18 16:06 codeine Allergy See Comment Verified 07/03/18 16:06 pseudoephedrine Allergy Anaphylatic Verified 07/03/18 16:06 Shock Home Medications: Home Medications DULoxetine DR CAP* [Cymbalta CAP*] 2 tab PO DAILY 07/03/18 [History Confirmed ] PMH/Surg Hx/FS Hx/Imm Hx Psychological History: Depression - Surgical History Surgical History: Yes Surgery Procedure, Year, and Place: breast reduction 2000. tubal ligation 2007. gall bladder removed 1989. benign tumor removed from uterus 12/07/12. GANGLION CYST. Uterine Ablation surgery. Uterine Ablation 2012. D&C - Family History Known Family History: Positive: Hypertension, Respiratory Disease - asthma Negative: Diabetes Family History: Dyslipidemia - Social History Alcohol Use: None Substance Use Type: None Smoking Status (MU): Never Smoked Tobacco Have You Smoked in the Last Year: No - Immunization History Most Recent Influenza Vaccination: June 24, 2015 Most Recent Tetanus Shot: up to date - she thinks in 2014 she received it Review of Systems Musculoskeletal: Arthralgia, Myalgia All Other Systems Reviewed And Are Negative: Yes Physical Exam - Summary Physical Exam Summary: Left knee with small suprapatellar effusion, patella is mobile, non tender, valgus/varus negative, ADT/PDT negative, no popliteal mass, decreased ROM on flexion. No soft tissue swelling, no bruising or erythema. Triage Information Reviewed: Yes Appearance: Well-Appearing, No Pain Distress, Obese Vital Signs: Initial Vital Signs Temp 98.5 F 07/03/18 16:00 Pulse 71 07/03/18 16:00 Resp 16 07/03/18 16:00 BP 153/93 07/03/18 16:00 Pulse Ox 100 07/03/18 16:00 Vital Signs Reviewed: Yes Eye Exam: Normal Eyes: Positive: Conjunctiva Clear ENT: Positive: Hearing grossly normal Neck: Positive: Supple Respiratory: Positive: Chest non-tender Cardiovascular: Positive: Pulses Normal, Brisk Capillary Refill Abdomen Description: Positive: Nontender Musculoskeletal: Positive: Strength Intact, ROM Intact, No Edema Neurological: Positive: Alert, Muscle Tone Normal Skin Exam: Normal Knee Pain Course/Dx - Course Course Of Treatment: recurrent left knee pain, last visit for that reason last winter. Was evaluated by ortho and referred to PT, patient states she gained 4 lbs recently. Renewed referral PT, start ibuprofen. F/u with PCP to monitor BP. Recommended weight loss - Differential Dx/Diagnosis Provider Diagnoses: knee pain. Elevated BP without history of HTN Discharge - Sign-Out/Discharge Documenting (check all that apply): Patient Departure All imaging exams completed and their final reports reviewed: No Studies - Discharge Plan Condition: Stable Disposition: HOME Patient Education Materials: Knee Pain (ED), Ibuprofen (By mouth) Referrals: Delano Hylton DO [Primary Care Provider] - Additional Instructions: Please follow up with your primary doctor to monitor your blood pressure - Billing Disposition and Condition Condition: STABLE Disposition: Home
== END 2018-07-03 16:40 | disposition home or self-care (01) ==
LOC: UCEAST 15:43
DX: M25.562 Pain in left knee (principal); R03.0 Elevated blood-pressure reading, without diagnosis of hypertension; Z88.1 Allergy status to other antibiotic agents; Z88.5 Allergy status to narcotic agent; Z88.8 Allergy status to other drugs, medicaments and biological substances
CPT/HCPCS: 99212; G0463

== ENCOUNTER 2018-09-25 16:47 | Emergency (ER) | payer BC ==
[2018-09-25 17:57] LABS: ABS Basophils 0.1 10^3/ul (0-0.2); ABS Eosinophils 0.1 10^3/ul (0-0.6); ABS Lymphocytes 2.8 10^3/ul (1.0-4.8); ABS Monocytes 0.8 10^3/ul (0-0.8); ABS Neutrophils 4.6 10^3/ul (1.5-7.7); ABS Nucleated RBC 0 10^3/ul; Eosinophil % 1.1 %; Hematocrit 41 % (35-47); Lymphocyte % 33.2 %; Mean Corpuscular HGB Conc 34 g/dl (31-36); Mean Corpuscular Hemoglobin 31 pg (27-31); Mean Corpuscular Volume 91 fL (80-97); Mean Platelet Volume 7.4 fL (7.4-10.4); Nucleated Red Blood Cells % 0; Platelet Count 262 10^3/ul (150-450); Red Blood Count 4.55 10^6/ul (4.00-5.40); Red Cell Distribution Width 13 % (10.5-15); White Blood Count 8.3 10^3/ul (3.5-10.8)
[2018-09-25 18:02] LABS: Albumin 4.4 g/dL (3.2-5.2); Albumin/Globulin Ratio 1.7 (1-3); BUN/Creatinine Ratio 18.4 (8-20); Calcium 9.2 mg/dL (8.6-10.3); EGFR Non-African American 69.8 (>60); Globulin 2.6 g/dL (2-4); Potassium 4.3 mmol/L (3.5-5.0); Total Bilirubin 0.3 mg/dL (0.2-1.0)
[2018-09-25 18:03] LABS: Activated Partial Thrombo Time 33.1 seconds (26.0-36.3); INR 0.86 (0.77-1.02)
--- NOTE | 2018-09-25 18:57 | ED ---
Hypertension - HPI Summary HPI Summary: A 48 y/o female presents to the ED c/o high blood pressure. In the ED room, the patient has a pulse of 155/92. As per triage, "Pt here today and took her blood pressure today and this weekend. Pt has been having headaches and was told to take her bp. Pt has been taking her bp randomly and today was high. Pt states she denies headache today although her pressure was zahira. Pt states she has had some pressure in her chest but not constant. Pt states it happened last night when she lay down and turned to right side and it felt better". According to the patient, she has been experiencing high blood pressure at work. She stated that her MD told her to come to [facility] for check up. The patient stated that she has no blood pressure medication. Patient denies any chest pain, SOB, and headache. Patient stated that her BP was high yesterday throughout the day as she checked it 3 times. She also at that time had a headache. She stated that she was also feeling at that time diaphoretic, shaky, and felt chest flutters. She stated that her BP yesterday was around 150/92. She noted that it has been high for some months. - History of Current Complaint Chief Complaint: EDHypertension Stated Complaint: HPB/CHEST PRESSURE/FLUTTER FEELING Time Seen by Provider: 09/25/18 18:49 Hx Obtained From: Patient Hx Last Menstrual Period: 2012, ablasion Onset/Duration: Started Days Ago, Still Present Timing: Constant Reported Blood Pressure Prior To Arrival: 150/92 Aggravating Factor(s): Nothing Alleviating Factor(s): Nothing Associated Signs & Symptoms: Chest Pain - CHEST FLUTTERS, RESOLVED, Headaches - RESOLVED, Other: - DIAPHORETIC, RESOLVED - Allergies/Home Medications Allergies/Adverse Reactions: Allergies Allergy/AdvReac Type Severity Reaction Status Date / Time clindamycin Allergy Rash Verified 09/25/18 16:54 codeine Allergy See Comment Verified 09/25/18 16:54 pseudoephedrine Allergy Anaphylatic Verified 09/25/18 16:54 Shock PMH/Surg Hx/FS Hx/Imm Hx Endocrine/Hematology History: Denies: Hx Diabetes, Hx Thyroid Disease Cardiovascular History: Reports: Hx Hypertension - not treated Denies: Hx Congestive Heart Failure Respiratory History: Reports: Hx Sleep Apnea - previous dx KRISTOPHER, not using CPAP Denies: Hx Asthma, Hx Chronic Obstructive Pulmonary Disease (COPD) GI History: Reports: Hx Gastroesophageal Reflux Disease Denies: Hx Ulcer History: Denies: Hx Renal Disease Musculoskeletal History: Denies: Hx Rheumatoid Arthritis, Hx Osteoporosis Neurological History: Reports: Hx Migraine Psychiatric History: Reports: Hx Anxiety, Hx Depression, Hx Community Mental Health Tx - Cancer History Hx Chemotherapy: No Hx Radiation Therapy: No - Surgical History Surgery Procedure, Year, and Place: breast reduction 2000. tubal ligation 2007. gall bladder removed 1989. benign tumor removed from uterus 12/07/12. GANGLION CYST. Uterine Ablation surgery. Uterine Ablation 2012. D&C Infectious Disease History: No Infectious Disease History: Denies: Hx Clostridium Difficile, Hx Hepatitis, Hx Human Immunodeficiency Virus (HIV), Hx of Known/Suspected MRSA, Hx Shingles, Hx Tuberculosis, Hx Known/ Suspected VRE, Hx Known/Suspected VRSA, History Other Infectious Disease, Traveled Outside the [place] in Last 30 Days - Family History Known Family History: Positive: Hypertension, Respiratory Disease - asthma Negative: Diabetes Family History: Dyslipidemia - Social History Alcohol Use: None Substance Use Type: Reports: None Hx Tobacco Use: No Smoking Status (MU): Never Smoked Tobacco Have You Smoked in the Last Year: No Review of Systems Negative: Fever Positive: Other - POSITIVE: HBP. Negative: Chest Pain Negative: Shortness Of Breath Negative: Headache All Other Systems Reviewed And Are Negative: Yes Physical Exam - Summary Physical Exam Summary: Appearance: Well appearing, no pain distress Skin: warm, dry, reflects adequate perfusion Head/face: normal Eyes: EOMI, BEBETO ENT: normal Neck: supple, non-tender Respiratory: CTA, breath sounds present Cardiovascular: RRR, pulses symmetrical Abdomen: non-tender, soft Musculoskeletal: normal, strength/ROM intact Neuro: normal, sensory motor intact, A&Ox3 Triage Information Reviewed: Yes Vital Signs On Initial Exam: Initial Vitals Temp Pulse Resp BP Pulse Ox 97.9 F 85 16 147/95 99 09/25/18 16:54 09/25/18 16:54 09/25/18 16:54 09/25/18 16:54 09/25/18 16:54 Vital Signs Reviewed: Yes Diagnostics - Vital Signs Vital Signs Temp Pulse Resp BP Pulse Ox 09/25/18 16:54 97.9 F 85 16 147/95 99 - Laboratory Lab Results: Lab Results 09/25/18 09/25/18 09/25/18 Range/Units 16:46 16:46 16:46 WBC 8.3 (3.5-10.8) 10^3/ul RBC 4.55 (4.00-5.40) 10^6/ul Hgb 14.0 (12.0-16.0) g/dl Hct 41 (35-47) % MCV 91 (80-97) fL MCH 31 (27-31) pg MCHC 34 (31-36) g/dl RDW 13 (10.5-15) % Plt Count 262 (150-450) 10^3/ul MPV 7.4 (7.4-10.4) fL Neut % (Auto) 55.8 % Lymph % (Auto) 33.2 % Ingham % (Auto) 9.3 % Eos % (Auto) 1.1 % Baso % (Auto) 0.6 % Absolute Neuts (auto) 4.6 (1.5-7.7) 10^3/ul Absolute Lymphs (auto) 2.8 (1.0-4.8) 10^3/ul Absolute Monos (auto) 0.8 (0-0.8) 10^3/ul Absolute Eos (auto) 0.1 (0-0.6) 10^3/ul Absolute Basos (auto) 0.1 (0-0.2) 10^3/ul Absolute Nucleated RBC 0 10^3/ul Nucleated RBC % 0 INR (Anticoag Therapy) 0.86 (0.77-1.02) APTT 33.1 (26.0-36.3) seconds Sodium 139 (135-145) mmol/L Potassium 4.3 (3.5-5.0) mmol/L Chloride 106 (101-111) mmol/L Carbon Dioxide 29 (22-32) mmol/L Anion Gap 4 (2-11) mmol/L BUN 16 (6-24) mg/dL Creatinine 0.87 (0.51-0.95) mg/dL Est GFR ( Amer) 84.4 (>60) Est GFR (Non-Af Amer) 69.8 (>60) BUN/Creatinine Ratio 18.4 (8-20) Glucose 85 (70-100) mg/dL Lactic Acid (0.5-2.0) mmol/L Calcium 9.2 (8.6-10.3) mg/dL Total Bilirubin 0.30 (0.2-1.0) mg/dL AST 17 (13-39) U/L ALT 14 (7-52) U/L Alkaline Phosphatase 84 (34-104) U/L Troponin I 0.00 (<0.04) ng/mL B-Natriuretic Peptide (<=100) pg/mL Total Protein 7.0 (6.4-8.9) g/dL Albumin 4.4 (3.2-5.2) g/dL Globulin 2.6 (2-4) g/dL Albumin/Globulin Ratio 1.7 (1-3) 09/25/18 09/25/18 Range/Units 16:46 16:46 WBC (3.5-10.8) 10^3/ul RBC (4.00-5.40) 10^6/ul Hgb (12.0-16.0) g/dl Hct (35-47) % MCV (80-97) fL MCH (27-31) pg MCHC (31-36) g/dl RDW (10.5-15) % Plt Count (150-450) 10^3/ul MPV (7.4-10.4) fL Neut % (Auto) % Lymph % (Auto) % Ingham % (Auto) % Eos % (Auto) % Baso % (Auto) % Absolute Neuts (auto) (1.5-7.7) 10^3/ul Absolute Lymphs (auto) (1.0-4.8) 10^3/ul Absolute Monos (auto) (0-0.8) 10^3/ul Absolute Eos (auto) (0-0.6) 10^3/ul Absolute Basos (auto) (0-0.2) 10^3/ul Absolute Nucleated RBC 10^3/ul Nucleated RBC % INR (Anticoag Therapy) (0.77-1.02) APTT (26.0-36.3) seconds Sodium (135-145) mmol/L Potassium (3.5-5.0) mmol/L Chloride (101-111) mmol/L Carbon Dioxide (22-32) mmol/L Anion Gap (2-11) mmol/L BUN (6-24) mg/dL Creatinine (0.51-0.95) mg/dL Est GFR ( Amer) (>60) Est GFR (Non-Af Amer) (>60) BUN/Creatinine Ratio (8-20) Glucose (70-100) mg/dL Lactic Acid 0.8 (0.5-2.0) mmol/L Calcium (8.6-10.3) mg/dL Total Bilirubin (0.2-1.0) mg/dL AST (13-39) U/L ALT (7-52) U/L Alkaline Phosphatase (34-104) U/L Troponin I (<0.04) ng/mL B-Natriuretic Peptide 12 (<=100) pg/mL Total Protein (6.4-8.9) g/dL Albumin (3.2-5.2) g/dL Globulin (2-4) g/dL Albumin/Globulin Ratio (1-3) Result Diagrams: 09/25/18 16:46 09/25/18 16:46 Lab Statement: Any lab studies that have been ordered have been reviewed, and results considered in the medical decision making process. - Radiology CXR Radiology Interpretation Completed By: Radiologist - NEGATIVE. PENDING OFFICIAL REPORT. - EKG 1808 Cardiac Rate: NL - 72 BPM EKG Rhythm: Sinus Rhythm - 72 BPM Summary of EKG Findings: NO ACUTE CHANGES. Hypertension Course/Dx - Course Course Of Treatment: A 48 y/o female presents to the ED c/o high blood pressure. According to the patient, she has been experiencing high blood pressure at work. She stated that her MD told her to come to [facility] for check up. The patient stated that she has no blood pressure medication. Patient denies any chest pain, SOB, and headache. A CXR revealed to be negative. An EKG revealed NSR of 72 BPM, no acute changes. Hematology, coagulation, and Chemistry screens were done. No significant laboratory abnormalities were found. In the ED course, the patient received no medications. Patient will be discharged with a diagnosis of hypertension. She will be sent home with [facility] and is to take the medication as prescribed. Patient is to follow up with primary care provider in 2-3 days. Patient is to return to ED for any new or worsening symptoms. Patient is agreeable with this plan. - Diagnoses Differential Diagnosis/HQI PQRI: Hypertension Provider Diagnoses: Hypertension Discharge - Sign-Out/Discharge Documenting (check all that apply): Patient Departure - DISCHARGE - Discharge Plan Condition: Stable Disposition: HOME Prescriptions: Amlodipine Besylate [Norvasc] 5 mg PO ONCE #30 tablet Patient Education Materials: Hypertension (ED) Referrals: Delano Hylton DO [Primary Care Provider] - 3 Days Additional Instructions: FOLLOW UP WITH PRIMARY CARE PROVIDER IN 2-3 DAYS. TAKE NORVASC MEDICATION PRESCRIBED. RETURN TO ED FOR ANY NEW OR WORSENING SYMPTOMS. - Billing Disposition and Condition Condition: STABLE Disposition: Home - Attestation Statements Document Initiated by Scribe: Yes Documenting Scribe: Orestes Vazquez Provider For Whom Consuelo is Documenting (Include Credential): Jaret Thurman MD Scribe Attestation: Orestes Salas scribed for Jaret Thurman MD on 09/25/18 at 2200. Scribe Documentation Reviewed: Yes Provider Attestation: The documentation as recorded by the Orestes cain accurately reflects the service I personally performed and the decisions made by Jaret sethi MD Status of Scribe Document: Viewed
[2018-09-25 19:32] VITALS: BP 154/85
== END 2018-09-25 19:31 | disposition home or self-care (01) ==
LOC: ED 16:47
DX: I10 Essential (primary) hypertension (principal); I49.8 Other specified cardiac arrhythmias; Z88.1 Allergy status to other antibiotic agents; Z88.5 Allergy status to narcotic agent; Z88.8 Allergy status to other drugs, medicaments and biological substances
CPT/HCPCS: 36415; 71045; 80053; 83605; 83880; 84484; 85025; 85610; 85730; 93005; 99282

== ENCOUNTER 2018-10-28 12:44 | Emergency (ER) | payer BC ==
[2018-10-28 12:50] VITALS: BP 132/85
--- NOTE | 2018-10-28 13:13 | UC ---
Knee Pain HPI - HPI Summary HPI Summary: three days of left knee pain, denies trauma. - History of Current Complaint Chief Complaint: UCLowerExtremity Stated Complaint: R LEG PAIN Time Seen by Provider: 10/28/18 13:04 Hx Obtained From: Patient Hx Last Menstrual Period: 2012 ?: No Onset/Duration: Sudden Onset Severity Initially: Moderate Severity Currently: Moderate Pain Intensity: 7 Aggravating Factor(s): Movement, Weight Bearing, Prolonged Standing, Stairs Alleviating Factor(s): Rest Associated Signs And Symptoms: Positive: Swelling Able to Bear Weight: Yes - pain with walking and bending - Risk Factors Gout Risk Factor: Age ^ 41, Obesity - Allergies/Home Medications Allergies/Adverse Reactions: Allergies Allergy/AdvReac Type Severity Reaction Status Date / Time clindamycin Allergy Rash Verified 10/28/18 12:50 codeine Allergy See Comment Verified 10/28/18 12:50 pseudoephedrine Allergy Anaphylatic Verified 10/28/18 12:50 Shock Home Medications: Home Medications Lisinopril 1 tab PO DAILY 10/28/18 [History Confirmed 10/28/18] PMH/Surg Hx/FS Hx/Imm Hx Previously Healthy: Yes - Surgical History Surgical History: None Surgery Procedure, Year, and Place: breast reduction 2000. tubal ligation 2007. gall bladder removed 1989. benign tumor removed from uterus 12/07/12. GANGLION CYST. Uterine Ablation surgery. Uterine Ablation 2012. D&C - Family History Known Family History: Positive: Hypertension, Respiratory Disease - asthma Negative: Diabetes Family History: Dyslipidemia - Social History Alcohol Use: None Substance Use Type: None Smoking Status (MU): Never Smoked Tobacco Have You Smoked in the Last Year: No - Immunization History Most Recent Influenza Vaccination: June 24, 2015 Most Recent Tetanus Shot: up to date - she thinks in 2015 she received it Review of Systems All Other Systems Reviewed And Are Negative: Yes Constitutional: Positive: Negative Skin: Positive: Negative Eyes: Positive: Negative ENT: Positive: Negative Respiratory: Positive: Negative Cardiovascular: Positive: Negative Gastrointestinal: Positive: Negative Genitourinary: Positive: Negative Motor: Positive: Negative Neurovascular: Positive: Negative Musculoskeletal: Positive: Arthralgia, Decreased ROM, Edema, Myalgia Neurological: Positive: Negative Psychological: Positive: Negative Is Patient Immunocompromised?: No Physical Exam - Summary Physical Exam Summary: patient is complaining of pain in the right knee, pain is around the patella. she states if feels swollen and hard to bend. 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 Triage Information Reviewed: Yes Appearance: Well-Appearing, Pain Distress, Obese Vital Signs: Initial Vital Signs Temp 98.2 F 10/28/18 12:47 Pulse 91 10/28/18 12:47 Resp 18 10/28/18 12:47 BP 132/85 10/28/18 12:47 Pulse Ox 98 10/28/18 12:47 Vital Signs Reviewed: Yes Eye Exam: Normal ENT Exam: Normal Dental Exam: Normal Neck exam: Normal Respiratory Exam: Normal Cardiovascular Exam: Normal Cardiovascular: Positive: RRR, No Murmur, Pulses Normal Abdominal Exam: Normal Musculoskeletal: Positive: Strength Intact, No Edema, ROM Limited @ - in FLX Neurological Exam: Normal Psychological Exam: Normal Skin Exam: Normal Knee Pain Course/Dx - Course Course Of Treatment: hx obtained, exam performed, meds reviewed, xray obtained which shows large joint effusion. knee immobilizer placed and referred to ortho , given a script for NSAIDs. - Differential Dx/Diagnosis Differential Diagnosis/HQI/PQRI: Internal Derangement Of Knee, Patellofemoral Syndrome, Sprain, Strain Provider Diagnosis: Effusion, right knee Discharge - Sign-Out/Discharge Documenting (check all that apply): Patient Departure All imaging exams completed and their final reports reviewed: Yes - Discharge Plan Condition: Stable Disposition: HOME Patient Education Materials: Swollen Knee Joint (ED) Referrals: Delano Hylton DO [Primary Care Provider] - Jessie Pennington MD [Medical Doctor] - Additional Instructions: 1. wear the immobilizer 2. take the medication as prescribed. 3. Call and make appointment with orthopedics today 4. follow up as needed. - Billing Disposition and Condition Condition: STABLE Disposition: Home
== END 2018-10-28 14:09 | disposition home or self-care (01) ==
LOC: UCEAST 12:44
DX: M25.461 Effusion, right knee (principal); Z88.6 Allergy status to analgesic agent; Z88.1 Allergy status to other antibiotic agents; Z88.5 Allergy status to narcotic agent
CPT/HCPCS: 99213; G0463

== ENCOUNTER 2019-01-29 16:14 | Emergency (ER) | payer BC ==
--- NOTE | 2019-01-29 16:29 | UC ---
Respiratory Complaint HPI - HPI Summary HPI Summary: 48 y/o female presents to the urgent care c/o sinus pain , nasal congestion, w/ yellowish nasal discharge, and +PND for the past week. Pt reports about 2 days ago she developed a dry cough and mild sore throat. Last night she felt w/ mild wheezing and cough was worsen that she felt SOB. She used her brother's albuterol inhaler and she felt better. Pt also c/o of urinary frequency and burning on urination for the past week. She has been sleeping in a new bed and she has mild RT lower back pain. pt states sinus pain and SORIANO is 4/10. She has taken OTC medications to alleviate symptoms w/o any improvement. She has a Bariatric surgery schedule in 2 days and she doesn't want to get sick. Pt denies fever, SOB, wheezing, abdominal pain, N/V/D, constipation, hematuria, flank pain, Hx of kidney stones - History of Current Complaint Stated Complaint: COUGH Time Seen by Provider: 01/29/19 16:27 Hx Obtained From: Patient Hx Last Menstrual Period: 2012 ?: No Onset/Duration: Gradual Onset, Lasting Weeks - 1 week, Still Present, Worse Since - 2 days Timing: Intermittent Episodes Severity Initially: Mild Severity Currently: Mild Pain Intensity: 4 - sinus pain Pain Scale Used: 0-10 Numeric Character: Cough: Nonproductive - dry Aggravating Factors: Recumbent Position Alleviating Factors: Bronchodilator, OTC Meds Associated Signs And Symptoms: Positive: URI, Nasal Congestion - yellowish, Sinus Discomfort. Negative: Dyspnea, Fever, Chills, Wheezing - Risk Factors Pulmonary Embolism Risk Factors: Negative Cardiac Risk Factors: Negative Pseudomonas Risk Factors: Negative Tuberculosis Risk Factors: Negative - Allergies/Home Medications Allergies/Adverse Reactions: Allergies Allergy/AdvReac Type Severity Reaction Status Date / Time clindamycin Allergy Rash Verified 01/29/19 16:34 codeine Allergy See Comment Verified 01/29/19 16:34 latex Allergy Rash Verified 01/29/19 16:34 morphine Allergy n/v Verified 01/29/19 16:34 pseudoephedrine Allergy Anaphylatic Verified 01/29/19 16:34 Shock PMH/Surg Hx/FS Hx/Imm Hx Previously Healthy: Yes Cardiovascular History: Hypertension - Surgical History Surgical History: None Surgery Procedure, Year, and Place: breast reduction 2000. tubal ligation 2007. gall bladder removed 1989. benign tumor removed from uterus 12/07/12. GANGLION CYST. Uterine Ablation surgery. Uterine Ablation 2012. D&C - Family History Known Family History: Positive: Hypertension, Respiratory Disease - asthma Negative: Diabetes Family History: Dyslipidemia - Social History Occupation: Employed Full-time Lives: With Family Alcohol Use: None Substance Use Type: None Smoking Status (MU): Never Smoked Tobacco Have You Smoked in the Last Year: No - Immunization History Most Recent Influenza Vaccination: June 24, 2015 Most Recent Tetanus Shot: up to date - she thinks in 2015 she received it Review of Systems All Other Systems Reviewed And Are Negative: Yes Constitutional: Positive: Negative Skin: Positive: Negative Eyes: Positive: Negative ENT: Positive: Sore Throat - mild, Nasal Discharge - yellowish, Sinus Congestion , Sinus Pain/Tenderness, Other - PND+ Respiratory: Positive: Cough - dry Cardiovascular: Positive: Negative Gastrointestinal: Positive: Negative Genitourinary: Positive: Dysuria, Frequency Motor: Positive: Negative Neurovascular: Positive: Negative Musculoskeletal: Positive: Negative Neurological: Positive: Headache Psychological: Positive: Negative Is Patient Immunocompromised?: No Physical Exam - Summary Physical Exam Summary: Vitals: reviewed General: Well developed, well-nourished obese female patient with NAD. Head and face: Normocephalic and atraumatic, Positive tenderness over the frontal and maxillary sinuses.. Eyes: PERRLA, EOMI x 2. Normal conjunctiva. No eye discharge. ENT: Ears and TM with normal limits. Nose: edematous and erythematous nasal mucosa with with yellowish discharge and erythematous mucosa. Pharynx with erythema, no exudate. Moderate yellowish PND Neck: Supple, no JVD, no carotid bruits and no lymphadenopathy. Lungs: clear, no rales, no rhonchi, no wheezes. CVS: RRR, S1 and S2 present no murmurs or gallops appreciated. ABDOMEN: Soft, non-tender. No signs of distention. No rebound no guarding, and no masses palpated. Bowel sounds are normal. BACK:no scoliosis or lesions, non tender to palpation, No B/L CVA tenderness Extremities: no edema noted. Neuro: WNL. Skin: warm and dry Triage Information Reviewed: Yes Respiratory Course/Dx - Course Course Of Treatment: 48 y/o female presents to the urgent care c/o sinus pain , nasal congestion, w/ yellowish nasal discharge, and +PND for the past week. Pt reports about 2 days ago she developed a dry cough and mild sore throat. Last night she felt w/ mild wheezing and cough was worsen that she felt SOB. She used her brother's albuterol inhaler and she felt better. Pt also c/o of urinary frequency and burning on urination for the past week. She has been sleeping in a new bed and she has mild RT lower back pain. pt states sinus pain and SORIANO is 4/10. She has taken OTC medications to alleviate symptoms w/o any improvement. She has a Bariatric surgery schedule in 2 days and she doesn't want to get sick. Pt denies fever, SOB, wheezing, abdominal pain, N/V/D, constipation, hematuria, flank pain, Hx of kidney stones. Hx obtained. Pt w/ sinusitis one examination. UA ordered: 1+ketone, 1+protein, trace intact blood. Urine culture ordered and sent to lab to r/o any abnormality. Pt with 2 weeks of symptoms getting worse. Pt Rx Amoxicillin PO and flonase nasal spray. Firs dose given by the nurse.This antibiotic will also cover for the urinary symptoms. Pt also Rx albuterol inhaler w/ aerochamber to alleviate bronchospasm. Discharge instructions explained to Pt. Advised to Return to the clinic or PCP if symptoms do not improve.Pt understood and agreed with plan of care. - Differential Dx/Diagnosis Differential Diagnosis/HQI/PQRI: Asthma, Bronchitis, Laryngitis, Lower Resp Infection, Sinusitis Provider Diagnosis: Acute bacterial sinusitis, Dysuria Discharge - Sign-Out/Discharge Documenting (check all that apply): Patient Departure - d/C home All imaging exams completed and their final reports reviewed: No Studies - Discharge Plan Condition: Stable Disposition: HOME Prescriptions: Albuterol HFA INHALER* [Ventolin HFA Inhaler*] 1 - 2 puff INH Q6H PRN #1 mdi PRN Reason: bronchospasm Amoxicillin PO (*) [Amoxicillin 875 MG (*)] 875 mg PO BID #20 tab Fluticasone NASAL SPRAY 50MCG* [Flonase NASAL SPRAY 50MCG*] 2 spray BOTH NARES DAILY #1 btl Patient Education Materials: Sinusitis (ED), Dysuria (ED) Forms: *Work Release Referrals: Delano Hylton, [Primary Care Provider] - 3 Days Additional Instructions: 1- Please increase fluid intake and rest. take full course of antibiotic to avoid resistance. Please take yogurts w/ probiotics or culturelle to protect you GI system 2-Use Flonase nasal spray as directed to help drain fluid. Also buy saline drops to clear sinuses 3- Use the albuterol inhaler to alleviate bronchospasm or if wheezing returns. 3-Urine culture was sent to the lab to r/o any abnormality. You will be notified of any abnormality. 4-Return to the clinic or PCP in 3 days if symptoms do not improve for further management and treatment - Billing Disposition and Condition Condition: STABLE Disposition: Home - Attestation Statements Provider Attestation: I was available for consult. This patient was seen by the MERCEDEZ. The patient was not presented to, seen by, or examined by me. -Leida
[2019-01-29 16:34] VITALS: BP 135/84
[2019-01-29] MEDS ORDERED: Amoxicillin PO (*) 500 MG CAP PO ONE (17:51)
== END 2019-01-29 18:01 | disposition home or self-care (01) ==
LOC: UCEAST 16:14
DX: J01.90 Acute sinusitis, unspecified (principal); B96.89 Other specified bacterial agents as the cause of diseases classified elsewhere; I10 Essential (primary) hypertension; R30.0 Dysuria; Z88.1 Allergy status to other antibiotic agents; Z88.5 Allergy status to narcotic agent; Z88.8 Allergy status to other drugs, medicaments and biological substances; Z91.040 Latex allergy status
CPT/HCPCS: 81003; 87086; 99212; A9270-GY; G0463

== ENCOUNTER 2019-01-31 06:45 | Inpatient (IN) | payer BC ==
[~2019-01-31 06:45] MED LIST: Buffered Lidocaine 1% SYRIN* 1 ML/SYRINGE INTRADERM ONE; Famotidine IV* 10 MG/ML 2 ML (20 mg) IV ONE; Lactated Ringers 1000 ML Bag* 1,000 ML IV SCH; Scopolamine 1.5 mg* PATCH TRANSDERM ONE
[2019-01-31] MEDS ORDERED: Scopolamine 1.5 mg* PATCH ONE (07:13)
[2019-01-31] MEDS ORDERED: Famotidine IV* 10 MG/ML 2 ML (20 mg) ONE (07:14)
[2019-01-31] MEDS ORDERED: ceFAZolin 1 GM in Dextrose (*) 1 GM/50 ML BAG IVPB ONE (07:14)
[2019-01-31] MEDS ORDERED: ceFAZolin 2 GM PREMIX in ORs 2 GM/50 ML BAG IVPB ONE (07:14)
[2019-01-31] MEDS ORDERED: Heparin VIAL(*) 5000 UNITS/ML VIAL (FIVE THOUSAND) ONE (07:28)
[2019-01-31] MEDS ORDERED: Dexamethasone IV* 4 MG/ML 1 ML (4 MG) ONE (08:01)
[2019-01-31] MEDS ORDERED: Ondansetron INJ* 2 MG/ML VIAL ONE ×2 (08:01→10:47)
[2019-01-31] MEDS ORDERED: Cisatracurium* 2 MG/ML MDV 5 ML ONE (08:01)
[2019-01-31] MEDS ORDERED: Midazolam* 1 MG/ML 5 ML VIAL (5 MG) ONE (08:01)
[2019-01-31] MEDS ORDERED: Propofol* 10 MG/ML 20 ML BTL ONE (08:01)
[2019-01-31] MEDS ORDERED: fentaNYL* 50 MCG/ML 2 ML VIAL (100 MCG VIAL) ONE ×4 (08:01→12:01)
[2019-01-31] MEDS ORDERED: Lidocaine 2% PF * 5 ML VIAL ONE (08:01)
[2019-01-31] MEDS ORDERED: Bupivacaine 0.5% W/EPI SDV* 30 ML VIAL ONE (08:25)
[2019-01-31] MEDS ORDERED: Glycopyrrolate IV* 0.2 MG/ML 1 ML VIAL ONE ×2 (08:59→10:16)
[2019-01-31] MEDS ORDERED: Phenylephrine 10 MG/ML VIAL* 1 ML VIAL ONE (09:40)
[2019-01-31] MEDS ORDERED: Naloxone* 0.4 MG/ML 1 ML VIAL IV PRN (09:59)
[2019-01-31] MEDS ORDERED: Ondansetron INJ* 2 MG/ML VIAL IV PRN ×2 (09:59→10:39)
[2019-01-31] MEDS ORDERED: Ketorolac INJ* 30 MG/ML 1 ML VIAL ONE (10:07)
[2019-01-31] MEDS ORDERED: Neostigmine Methylsulfate* 1 MG/ML 10 ML VIAL (1 mg/ml) ONE (10:16)
--- NOTE | 2019-01-31 10:34 | OP ---
Operative Report - Blank - Operative Report Date of Operation: 01/31/19 Note: Brief Operative Note Preop Dx: Morbid obesity Postop Dx: same Procedure: laparoscopic sleeve gastrectomy Anesthesia: GET Surgeon: Deja Desktop Support Engineer: CRISTÓBAL Oropeza; LOURDES Abbott Fluids: 1600 ml RL EBL: < 20 ml Specimen: portion of stomach Drains: none Findings: dictated
[2019-01-31] MEDS ORDERED: diPHENhydraMINE IV* 50 MG/ML 1 ml VIAL (BENADRYL) SLOW PUSH PRN (10:39)
[2019-01-31] MEDS ORDERED: HYDROmorphone INJ1* 1 MG/ML SYRINGE IV SLOW PU PRN ×2 (10:39)
[2019-01-31] MEDS ORDERED: Albuterol HFA INHALER* 8 gm MDI INH PRN (10:44)
[2019-01-31] MEDS: fentaNYL* 50 MCG/ML 2 ML VIAL (100 MCG VIAL) IV PRN ×3 (10:50→12:03)
[2019-01-31] MEDS: Lactated Ringers 1000 ML Bag* 1,000 ML IV SCH ×2 (12:30→19:25)
[2019-01-31] MEDS: Ketorolac INJ* 30 MG/ML 1 ML VIAL IV PRN ×2 (12:47→20:55)
[2019-01-31] MEDS: Heparin VIAL(*) 5000 UNITS/ML VIAL (FIVE THOUSAND) SUBCUT SCH ×2 (13:49→20:55)
--- NOTE | 2019-01-31 20:49 | OP ---
CC: [facility]; Dr. Delano Hylton, [facility]* OPERATIVE REPORT: DATE OF OPERATION: 01/31/19 - Inpatient, room SSU 353- DATE OF : 72 SURGEON: Usman Short MD DRY HEAT ROOM ATTENDANT: CRISTÓBAL Davis ANESTHESIOLOGIST: Dr. Donovan Macedo. ANESTHESIA: General endotracheal. PRE-OP DIAGNOSIS: Clinically severe obesity. POST-OP DIAGNOSIS: Clinically severe obesity. OPERATIVE PROCEDURE: Laparoscopic sleeve gastrectomy. ESTIMATED BLOOD LOSS: Minimal. IV FLUIDS: Crystalloid. SPECIMEN: Portion of the stomach. DRAINS: None. COMPLICATIONS: None. COUNTS: Instrument, needle, and sponge counts correct. DESCRIPTION OF PROCEDURE: The patient was brought to the operating room and placed on the table supine. Sequential compression devices were placed on both lower extremities. General anesthesia was administered. The abdomen was prepped and draped in the usual sterile fashion. She received appropriate intravenous antibiotics. Time-out was performed. Local anesthetic was infiltrated into the skin and soft tissue prior to making each incision. Entry into the abdomen was through a left upper quadrant incision accommodating a 5-mm optical trocar. After accessing the peritoneal cavity, carbon dioxide was insufflated to a pressure of 15 mmHg. There were adhesions of omentum to the anterior abdominal wall and the falciform ligament. The placement of 12-mm trocars, 1 in the right upper quadrant and 1 in the midline epigastrium was performed under direct visualization. LigaSure was used to lyse the adhesions of the omentum from the anterior abdominal wall and falciform ligament. Next, a 5-mm trocar was placed further laterally in the left upper quadrant. A Dimple liver retractor was placed percutaneously in the subxiphoid position and used to elevate the left lobe of the liver. The gastric anatomy appeared normal. The greater curvature was mobilized measuring 6 cm proximal to the pylorus. The LigaSure was then used to skeletonize the greater curvature and also dividing the posterior short gastric vessels near the fundus. After completely freeing the stomach to the gastroesophageal junction, a sleeve gastrectomy was performed using a 40-Setswana bougie. The Endo ALDA stapler with purple reinforced cartridges was used to create the sleeve. The transected portion of the stomach was retrieved using an endoscopic retrieval bag through the right upper quadrant port site. After retrieving the stomach, the port site was closed with 0 Vicryl in interrupted fashion to approximate the fascia. The remaining ports and liver retractor were removed under direct visualization after assuring hemostasis. The wounds were closed with 4-0 Monocryl in a subcuticular fashion to close the skin. Steri-Strips were applied with dry dressings. The patient tolerated the procedure well, was extubated and transferred to Recovery in stable condition. [id number]/[facility] #: [id number] [facility]ITAL[facility]
[2019-01-31] MEDS: Famotidine IV* 10 MG/ML 2 ML (20 mg) IV SLOW PU SCH (20:55)
[2019-02-01] MEDS: Lactated Ringers 1000 ML Bag* 1,000 ML IV SCH (02:48)
[2019-02-01] MEDS: Ketorolac INJ* 30 MG/ML 1 ML VIAL IV PRN ×2 (02:51→10:05)
[2019-02-01] MEDS: Heparin VIAL(*) 5000 UNITS/ML VIAL (FIVE THOUSAND) SUBCUT SCH ×3 (05:27→21:23)
[2019-02-01] MEDS: Fluticasone NASAL SPRAY 50MCG* 16 gm SPRAY BTL BOTH NARES SCH (09:52)
[2019-02-01] MEDS: Famotidine IV* 10 MG/ML 2 ML (20 mg) IV SLOW PU SCH ×2 (09:53→21:20)
[2019-02-01] MEDS: D5W 1/2 NS KCl 20 Meq 1000 ML* 1,000 ML IV SCH ×2 (09:58→18:16)
--- NOTE | 2019-02-01 16:08 | PN ---
Progress Note - Progress Note Date of Service: 02/01/19 Note: S: POD #1. Feels a bit more bloated today; no nausea; ant dragan clears reasonably well. Ambulating. Has passed a small amt of flatus. O: Vital Signs - 8 hr 02/01/19 11:48 Temperature 97.7 F Pulse Rate 77 Respiratory 16 Rate Blood Pressure 124/68 (mmHg) O2 Sat by Pulse 92 Oximetry Current Medications Acetaminophen (Tylenol Adult Liq*) 650 mg PO Q6H PRN PRN Reason: Temp > 101 F Or Mild Pain Hydrocodone Bitart/Acetaminophen (Nortab 7.5/325 Liq*) 15 ml PO Q6H PRN PRN Reason: PAIN Albuterol (Ventolin Hfa Inhaler*) 1 puff INH Q6H PRN PRN Reason: bronchospasm Diphenhydramine HCl (Benadryl Iv*) 25 mg SLOW PUSH Q6H PRN PRN Reason: ITCHING Famotidine (Pepcid Iv*) 20 mg IV SLOW PU BID [facility] Last Admin: 02/01/19 09:53 Dose: 20 mg Fluticasone Propionate (Flonase Nasal [place] 50mcg*) 2 spray BOTH NARES DAILY [facility] Last Admin: 02/01/19 09:52 Dose: 2 spray Heparin Sodium (Porcine) (Heparin Vial(*)) 5,000 units SUBCUT Q8HR [facility] Last Admin: 02/01/19 15:09 Dose: 5,000 units Hydromorphone HCl (Dilaudid Inj1s*) 0.5 mg IV SLOW PU Q3H PRN PRN Reason: moderate pain Last Admin: 01/31/19 16:49 Dose: 0.5 mg Hydromorphone HCl (Dilaudid Inj1s*) 1 mg IV SLOW PU Q3H PRN PRN Reason: PAIN - SEVERE Last Admin: 01/31/19 13:49 Dose: 1 mg Potassium Chloride/Dextrose (D5w 1/2 Ns Kcl 20 Meq 1000 Ml*) 1,000 mls @ 125 mls/hr IV PER RATE [facility] Last Admin: 02/01/19 09:58 Dose: 125 mls/hr Ketorolac Tromethamine (Toradol Inj*) 30 mg IV Q6H PRN PRN Reason: PAIN Stop: 02/02/19 10:41 Last Admin: 02/01/19 10:05 Dose: 30 mg Ondansetron HCl (Zofran Inj*) 4 mg IV Q6H PRN PRN Reason: NAUSEA/VOMITING Last Admin: 01/31/19 13:49 Dose: 4 mg Pharmacy Profile Note (Scopolamine Patch Remove*) 1 note PATCH OFF ONCE ONE Stop: 02/03/19 06:01 Gen: appears comfortable; NAD Heart: reg Lungs: clear ant Abd: lap sites ok w/ small amts of sang drainage; +BS; soft; mild incisional tenderness only A: s/p lap sleeve gastrectomy, doing well P: cont IVF until po intake more adequate; po analgesics; prob d/c home 02/02
[2019-02-01] MEDS: HYDROcodone/ACET. 7.5/325 LIQ* 15 ML UDC PO PRN ×2 (16:53→22:07)
[2019-02-02] MEDS: Acetaminophen ADULT LIQ* 650 MG/20.3 ML UDC PO PRN ×2 (04:39→10:21)
[2019-02-02] MEDS: Heparin VIAL(*) 5000 UNITS/ML VIAL (FIVE THOUSAND) SUBCUT SCH (05:58)
[2019-02-02 08:07] VITALS: BP 129/64
[2019-02-02] MEDS: Famotidine IV* 10 MG/ML 2 ML (20 mg) IV SLOW PU SCH (09:07)
[2019-02-02] MEDS: Fluticasone NASAL SPRAY 50MCG* 16 gm SPRAY BTL BOTH NARES SCH (09:07)
[2019-02-02] MEDS ORDERED: guaiFENesin LIQ* 100 MG/5 ML UDC PO PRN (09:43)
[2019-02-03] MEDS ORDERED: Scopolamine PATCH Remove* 1 NOTE MISC PATCH OFF ONE (06:00)
== END 2019-02-02 11:00 | disposition home or self-care (01) | DRG 403 ==
LOC: AA 06:45 → SSU 10:39
PROVIDERS: ADMIT Surgery; ATTEND Surgery
PROC: 0DB64Z3 Excision of Stomach, Percutaneous Endoscopic Approach, Vertical (ICD-10-PCS; principal; 2019-01-31 08:45)
DX: E66.01 Morbid (severe) obesity due to excess calories (principal); I10 Essential (primary) hypertension; M19.90 Unspecified osteoarthritis, unspecified site; K21.9 Gastro-esophageal reflux disease without esophagitis; F32.9 Major depressive disorder, single episode, unspecified; F41.9 Anxiety disorder, unspecified; G89.29 Other chronic pain; K58.9 Irritable bowel syndrome, unspecified; Z68.41 Body mass index [BMI] 40.0-44.9, adult; Z88.5 Allergy status to narcotic agent; Z88.8 Allergy status to other drugs, medicaments and biological substances; Z88.1 Allergy status to other antibiotic agents; Z91.040 Latex allergy status; Z90.49 Acquired absence of other specified parts of digestive tract; Z98.51 Tubal ligation status
CPT/HCPCS: 43775; 88307; A9270-GY; J0690; J1100; J1170; J1644; J1885; J2250; J2405; J2704; J2710; J3010

== ENCOUNTER 2019-05-21 15:36 | Emergency (ER) | payer BC ==
--- OUTSIDE RECORDS SUMMARY | 2019-05-21 15:40 | XMS REPORT | Summary of Care ---
:1970 Author Organization [facility] Address [address] [facility] [place] [address] Care Team Providers Name Role Phone Delano Hylton DO Primary Care Provider Reason for Visit Reason Comments Anxiety here as been increased emotinal issues/ crying; feeling tired more now since surgery. Encounter Details Date Type Department Care Team Description 05/17/2019 Office Visit [facility] Delano Hylton DO Depression, unspecified depression type (Primary Dx); Practice [address] [facility] Hypertension, unspecified type [address] [place] [address] [place] [address] [phone] Allergies Active Allergy Reactions Severity Noted Date Comments Clindamycin Rash 09/08/2017 Codeine GI Reaction 09/08/2017 Stomach pain and chest pain Morphine GI Reaction Medium 02/04/2019 Pseudoephedrine Hcl Er Cardiac Reaction 09/08/2017 palpitations documented as of this encounter (statuses as of 05/17/2019) Medications Medication Sig Dispensed Refills Start Date End Date Status Acetaminophen Take 500 mg by 0 Active (TYLENOL PO) mouth TWICE DAILY. OMEPRAZOLE PO Take by 0 Active mouth. lisinopril Take 1 Tab by 30 Tab 0 05/17/2019 Active (PRINIVIL, ZESTRIL) mouth DAILY. 10 MG Oral TabIndications: Hypertension, unspecified type sertraline (ZOLOFT) Take 1 Tab by 30 Tab 0 05/17/2019 Active 50 MG Oral mouth DAILY. TabIndications: cymbalta take Depression, 1 tab a day unspecified for 5 days depression type then stop and start this med clotrimazole Apply twice 1 Tube 0 12/05/2018 05/17/2019 Discontinued (LOTRIMIN) 1 % daily until Apply externally gone CreamIndications: Candidal intertrigo lisinopril Take 1 Tab by 90 Tab 1 12/05/2018 05/17/2019 Discontinued (PRINIVIL, ZESTRIL) mouth DAILY. 20 MG Oral TabIndications: Hypertension, unspecified type duloxetine Take 1 Cap by 90 Cap 3 12/05/2018 05/17/2019 Discontinued (CYMBALTA) 60 MG mouth DAILY. Oral CAPSULE ENTERIC COATED PARTICLESIndication s: Anxiety fluticasone [place] 2 Sprays 0 05/17/2019 Discontinued (FLONASE) 50 in nose DAILY. MCG/ACT Nasal Suspension albuterol HFA Take 2 Puffs 0 05/17/2019 Discontinued (VENTOLIN) 108 (90 by inhalation. Base) MCG/ACT Inhalation Aero Soln documented as of this encounter (statuses as of 05/17/2019) Active Problems Problem Noted Date Primary osteoarthritis of right knee 01/06/2019 Vitamin D deficiency Anxiety and depression HTN (hypertension) documented as of this encounter (statuses as of 05/17/2019) Social History Tobacco Use Types Packs/Day Years Used Date Never Smoker Smokeless Tobacco: Never Used Alcohol Use Drinks/Week oz/Week Comments Yes rare Sex Assigned at Date Recorded Not on file Job Start Date Occupation Industry Not on file Not on file Not on file Travel History Travel Start Travel End No recent travel history available. documented as of this encounter Last Filed Vital Signs Vital Sign Reading Time Taken Comments Blood Pressure 158/92 05/17/2019 3:13 PM EDT Pulse 90 05/17/2019 3:13 PM EDT Temperature - - Respiratory Rate - - Oxygen Saturation 99% 05/17/2019 3:13 PM EDT Inhaled Oxygen Concentration - - Weight 76.9 kg (169 lb 9.6 oz) 05/17/2019 3:13 PM EDT Height 156.2 cm (5' 1.5") 05/17/2019 3:13 PM EDT Body Mass Index 31.53 05/17/2019 3:13 PM EDT documented in this encounter Progress Notes Delano Hylton, - 05/17/2019 3:00 PM EDT PATIENT: Marely Salcedo : 1970 DATE OF SERVICE: 05/17/2019 CHIEF COMPLAINT: Chief Complaint Patient presents with Anxiety here as been increased emotinal issues/ crying; feeling tired more now since surgery. Subjective HISTORY OF PRESENT ILLNESS: Marely Salcedo is a 48-y.o. female. HPI BP was fine and off med after bariatric surgery but last few days headache and today at oV at bariatric and today with me hypertension again Did fine with lisinopril in past Depression: cymbalta was working but stress of adult kids. 1 came out of nursing home and another one into drugs No si or hi Crying a lot Not seeing therapy Past Medical History: Diagnosis Date Anxiety and depression HTN (hypertension) Vitamin D deficiency Family History Problem Relation Age of Onset High Cholesterol Mother Hypertension Mother Diabetes Mother Asthma Mother Arthritis Mother Psychiatry Mother Respiratory Mother Empysema Fibromyalgia Mother Heart Mother High Cholesterol Father Hypertension Father Anesth Problems No family history Cancer No family history Clotting Disorder No family history Heart Disease No family history Kidney Disease No family history Thyroid Disease No family history Current Outpatient Medications Medication Sig Acetaminophen (TYLENOL PO) Take 500 mg by mouth TWICE DAILY. lisinopril (PRINIVIL, ZESTRIL) 10 MG Oral Tab Take 1 Tab by mouth DAILY. OMEPRAZOLE PO Take by mouth. sertraline (ZOLOFT) 50 MG Oral Tab Take 1 Tab by mouth DAILY. cymbalta take 1 tab a day for 5days then stop and start this med No current facility-administered medications for this visit. Allergies Allergen Reactions Morphine GI Reaction Clindamycin Rash Codeine GI Reaction Stomach pain and chest pain Pseudoephedrine Hcl Er Cardiac Reaction palpitations Social History Socioeconomic History Marital status: Single Spouse name: Not on file Number of children: Not on file Years of education: Not on file Highest education level: Not on file Occupational History Not on file Social Needs Financial resource strain: Not on file Food insecurity: Worry: Not on file Inability: Not on file Transportation needs: Medical: Not on file Non-medical: Not on file Tobacco Use Smoking status: Never Smoker Smokeless tobacco: Never Used Substance and Sexual Activity Alcohol use: Yes Comment: rare Drug use: No Sexual activity: Never Lifestyle Physical activity: Days per week: Not on file Minutes per session: Not on file Stress: Not on file Relationships Social connections: Talks on phone: Not on file Gets together: Not on file Attends evangelical service: Not on file Active member of club or organization: Not on file Attends meetings of clubs or organizations: Not on file Relationship status: Not on file Intimate partner violence: Fear of current or ex partner: Not on file Emotionally abused: Not on file Physically abused: Not on file Forced sexual activity: Not on file Other Topics Concern Back Care Not Asked Bike Helmet Not Asked Blood Transfusions Not Asked Caffeine Concern Not Asked Exercise Not Asked Hobby Hazards Not Asked International Travel Not Asked Service Not Asked Occupational Exposure Not Asked Seat Belt Not Asked Self-Exams Not Asked Sleep Concern Not Asked Special Diet Not Asked Stress Concern Not Asked Weight Concern Not Asked Social History Narrative Work at [employer] house [employer] for 5 years Her parents and family in town. Has 5 kids. REVIEW OF SYSTEMS: Review of Systems Constitutional: Negative for fever. Gastrointestinal: Negative for abdominal pain. Neurological: Negative for dizziness. Objective PHYSICAL EXAM: VITALS: BP (!) 158/92 (BP Location: Left arm, Patient Position: Sitting) | Pulse 90 | Ht 5' 1.5" (1.562 m) | Wt 169 lb 9.6 oz (76.9 kg) | SpO2 99% | BMI 31.53 kg/m Body mass index is 31.53 kg/m. Physical Exam Constitutional: She appears well-developed and well-nourished. No distress. HENT: Head: Normocephalic and atraumatic. Eyes: Conjunctivae are normal. Right eye exhibits no discharge. Left eye exhibits no discharge. No scleral icterus. Cardiovascular: Normal rate. Pulmonary/Chest: Effort normal. Skin: She is not diaphoretic. Psychiatric: Depressed ASSESSMENT / IMPRESSION: ICD-9-CM ICD-10-CM 1. Depression, unspecified depression type 311 F32.9 sertraline (ZOLOFT) 50 MG Oral Tab 2. Hypertension, unspecified type 401.9 I10 lisinopril (PRINIVIL, ZESTRIL) 10 MG Oral Tab Plan Start acei again. 3 week follow up Depression: cymabalta 120 mg currently. Go to 60 mg for 5 days then stop and next day start zolof 50mg See therapist through work Author: Delano Hylton DO 05/17/2019 15:36 documented in this encounter Plan of Treatment Date Type Specialty Care Team Description 06/02/2019 Office Visit Family Practice Delano Hylton, DO [address] [place] [address] [phone] 06/07/2019 Office Visit Family Practice Delano Hylton, DO [address] [place] [address] [phone] Health Maintenance Due Date Last Done Comments PAP SMEAR 1970 HIV SCREENING 1986 MAMMOGRAM (SCREENING) 2011 INFLUENZA VACCINE (#1) 2019 LIPID DISORDER SCREENING 06/10/2019 06/10/2018 DIABETES SCREENING 12/06/2019 12/05/2018, 10/26/2018, 06/10/2018, Additional history exists DEPRESSION SCREENING 10/03/2022 Postponed from 1983 (Other) HPV IMMUNIZATION SERIES Aged Out No longer eligible based on patient's age to complete this topic MENINGOCOCCAL VACCINE IMM Aged Out No longer eligible based on patient's age to complete this topic PNEUMOCOCCAL 0-64 YRS Aged Out No longer eligible based on patient's age to complete this topic documented as of this encounter Goals Goal Patient Goal Associated Recent Patient-Stated? Author Type Problems Progress Blood Pressure Blood Pressure 158/92 No Delano Hylton < 140/90 (05/17/2019 DO Miriam 3:13 PM EDT) Note: This is an individualized treatment (blood pressure) goal for Marely Restrepo Alphonse: Displayed above (on the left) is your goal for blood pressure control. Your most recent blood pressure is also shown above, on the right. You should try to achieve blood pressures that are lower than your goal listed above (on the left). Depression screen (PHQ-9) total score < Depression No Ana Paula Hayden MD 5 Note: This is an individualized treatment (depression) goal for Marely Restrepo Alphonse: Displayed above is your goal for a depression screening (PHQ-9) score that would indicate good control of your depression. Weight loss vs. 18 mo Lifestyle 57.4 (05/17/2019 3:13 PM No Delano Hylton , DO max (lbs) >= 10 EDT) Note: This is an individualized lifestyle goal for Marely Restrepo Alphonse: Your body mass index (BMI) is more than 30. You should lose weight. A reasonable starting goal is to lose 10 pounds. Displayed above is how many pounds you have lost thus far towards your 10 pound weight loss goal. Keep a regular sleep schedule Lifestyle No Ana Paula Hayden MD Note: This is an individualized lifestyle goal for Marely Salcedo: Please maintain a regular sleep schedule. This may help with some symptoms of depression. Take all prescribed medications as directed Self-management No Delano Hylton DO Note: This is an individualized self-management goal for Marely Salcedo: Please take all prescribed medications as directed. 1. Do not skip doses. If you cannot afford your medications, talk with your doctor. 2. Use a pill reminder system such as a pill box if needed. Your pharmacist can help you with this. 3. Contact your Pharmacy 5 days before your medication runs out. If you cannot take your medications for any reasons, talk with your doctor. 4. Please bring all of your medication bottles and inhalers (or a list of all your medications/inhalers) with you to every visit. Potential barriers to meeting all of your care plan goals will continue to be addressed on an ongoing basis. documented as of this encounter Results Not on filedocumented in this encounter Visit Diagnoses Diagnosis Depression, unspecified depression type - Primary Hypertension, unspecified type documented in this encounter Insurance Payer Benefit Plan / Subscriber ID Effective Dates Phone Address Type Group On Center Software [employer] xxxxxxxxxxxx 2017-Present [employer] documented as of this encounter
[2019-05-21 15:55] VITALS: BP 126/89
--- NOTE | 2019-05-21 16:00 | UC ---
Hip/Pelvis Pain - HPI Summary HPI Summary: R groin pain after increased physical activity a few days ago and since then has had worsening pain. At times has to limp. denies tingling/numbness, redness or mass/lump. has been using tylenol - History Of Current Complaint Chief Complaint: UCLowerExtremity Stated Complaint: HIP PAIN Time Seen by Provider: 05/21/19 15:57 Hx Obtained From: Patient Hx Last Menstrual Period: 2012 - had uterine ablation Severity Currently: Moderate Pain Intensity: 8 Pain Scale Used: 0-10 Numeric Character Of Pain: Sharp, Aching Aggravating Factor(s): Movement Alleviating Factor(s): Nothing - Allergies/Home Medications Allergies/Adverse Reactions: Allergies Allergy/AdvReac Type Severity Reaction Status Date / Time clindamycin Allergy Rash Verified 05/21/19 15:55 latex Allergy Rash Verified 05/21/19 15:55 pseudoephedrine Allergy Anaphylatic Verified 05/21/19 15:55 Shock codeine AdvReac See Comment Verified 05/21/19 15:55 morphine AdvReac n/v Verified 05/21/19 15:55 Home Medications: Home Medications Lisinopril TAB* [Prinivil TAB*] 5 mg PO DAILY 05/21/19 [History Confirmed ] Potassium Chlor TAB* [Klor Con ER TAB*] 10 meq PO DAILY 05/21/19 [History Confirmed 05/21/19] PMH/Surg Hx/FS Hx/Imm Hx - Surgical History Surgical History: Yes Surgery Procedure, Year, and Place: Gastric sleeve January 2019. breast reduction 2000. tubal ligation 2007. gall bladder removed 1989. benign tumor removed from uterus 12/07/12. GANGLION CYST. Uterine Ablation 2012. D&C - Family History Known Family History: Positive: Hypertension, Respiratory Disease - asthma Negative: Diabetes Family History: Dyslipidemia - Social History Alcohol Use: Rare Alcohol Amount: holiday Substance Use Type: None Smoking Status (MU): Never Smoked Tobacco Have You Smoked in the Last Year: No - Immunization History Most Recent Influenza Vaccination: June 24, 2015 Most Recent Tetanus Shot: up to date - she thinks in 2014 she received it Most Recent Pneumonia Vaccination: unsure Review of Systems All Other Systems Reviewed And Are Negative: Yes Constitutional: Negative: Fever Skin: Negative: Rash, Bruising Motor: Positive: Decreased ROM - R upper hip Neurovascular: Negative: Decreased Sensation Musculoskeletal: Positive: Arthralgia - R hip, Decreased ROM - R hip. Negative : Edema, Myalgia Physical Exam Triage Information Reviewed: Yes Appearance: Well-Appearing Vital Signs: Initial Vital Signs Temp 98.9 F 05/21/19 15:51 Pulse 74 05/21/19 15:51 Resp 14 05/21/19 15:51 BP 126/89 05/21/19 15:51 Pulse Ox 99 05/21/19 15:51 Vital Signs Reviewed: Yes Respiratory: Positive: No respiratory distress Musculoskeletal: Positive: No Edema, ROM Limited @ - R hip, Other: - point tenderness at R groin and pain w/ external rotation of R hip Hip Injury Course/Dx - Course Course Of Treatment: Acute R hip/groin pain after increased physical activity. On exam limited ROM at R hip. offered imaging she declined. do not think this is an infectious source. Vitals good. Reviewed Knee xrays from the past. Likely strain from physical activity . - Differential Dx/Diagnosis Differential Diagnosis/HQI/PQRI: Bursitis, Sprain, Strain, Tenosynovitis Provider Diagnosis: Hip pain Discharge ED - Sign-Out/Discharge Documenting (check all that apply): Patient Departure All imaging exams completed and their final reports reviewed: No Studies - Discharge Plan Condition: Good Disposition: HOME Prescriptions: Capsaicin 0.025% CREAM* [Zostrix 0.025% CREAM*] 1 applic TOPICAL BID 14 Days #1 tu Patient Education Materials: Hip Pain (ED) Forms: *Work Release Referrals: Delano Hylton DO [Primary Care Provider] - Additional Instructions: If this gets worse please follow up with primary care provider. You may try icing as well as this has been shown to work. - Billing Disposition and Condition Condition: GOOD Disposition: Home
== END 2019-05-21 16:22 | disposition home or self-care (01) ==
LOC: UCEAST 15:36
DX: M25.551 Pain in right hip (principal)
CPT/HCPCS: 99212; G0463

== ENCOUNTER 2019-06-04 19:48 | Emergency (ER) | payer BC ==
--- OUTSIDE RECORDS SUMMARY | 2019-06-04 19:54 | XMS REPORT | Continuity of Care Document ---
:[address] [facility] Address [address] [place] [address] Phone Care Team Providers Name Role Phone Lois Bowden NP Unavailable Unavailable Allergies, Adverse Reactions, Alerts Substance Reaction Status PSEUDOEPHEDRINE HCL Active codeine Active CLINDAMYCIN PHOSPHATE Active Medications Medication Instructions Dosage Effective Dates Status Comments (start - stop) Valtrex 1 gram take 1 tablet by - Active tablet oral route every day LISINOPRIL Not Available - Active (unknown strength) NAPROXEN (unknown Not Available - Active strength) CYMBALTA (unknown Not Available - Active strength) Problems Condition Effective Dates Clinical Status Comments (start - stop) Encounter for oth general cnsl and advice on contraception Encntr screen for infections w sexl mode of transmiss Herpesviral infection of urogenital system, unspecified Herpesviral infection of urogenital system, unspecified Candidiasis of vulva and vagina Abnormal uterine and vaginal bleeding, unspecified Abnormal uterine and vaginal bleeding, unspecified Abnormal uterine and vaginal bleeding, unspecified Cervical high risk HPV DNA test positive Human immunodeficiency - virus [HIV] counseling 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 Other Camp Director.Svc. STI Results Test Name Date and Time Measure Units Reference Range Abnormal Flag Status Comments Panel Description: C trach DNA XXX Ql PCR Final Swab CT - Negative N Final Performed by:
CDD Vaginal 00:00:00 ([id number])

Panel Description: Amplified GC - Vaginal Final Swab GC - Negative N Final : Vaginal 00:00:00 No

Performed by:
CDD ([id number])

Advance Directives Directive Yes / No Effective Date File Name No information Encounters Encounter Practice Location Reason(s) Diagnoses Date Provider Providers Description For Visit Copied on Encounter OFFICE/OUTPA [facility] Genital Encounter for Dennise Abreu. Referring TIENT VISIT, [facility] [place] Lesions ot general cnsl [address] Provider: CARRI Montalvo a/o Bumps and advice on , [place], [place], [address], [place], [address] [facility], 620 (chief ntr screen for [place]. [address] complaint) infections w St, St, [place], sexl mode of [place], [place], [place], [address]. [id number], iral infection [place] of urogenital tel:[phone] system, [phone] unspecified [facility] Herpesviral [place]ina Referring [facility] [place] infection of Niru. 620 Provider: [place] urogenital [address], N[place]u [place] system, [place], [place], [place], [place], [address] unspecifiedCandi [address], [place]. [address] diasis of vulva tel:[phone], [address], [place], and vagina [address] [place], [address]. [id number], tel:+ [place] [phone] tel:[phone] [facility] Abnormal uterine Aug-2 Dennise Abreu. [facility] [place] and vaginal 4-201 [address] [place] bleeding, [address], [place], [place], [address], [place], [address], [place], [place], [id number], [place] tel:[phone] [facility] Abnormal uterine Mar-2 Dennise Abreu. [facility] [place] and vaginal 5-[address] [place] bleeding, [address], [place], [place], [address], [place], [address], [place], [id number], [place] tel:[phone] [facility] Abnormal uterine Mar-1 Parete Referring [facility] [place] and vaginal 7- Lorin. 620 W Provider: [place] bleeding, [address], [place] unspecifiedCervi [place], [place], [place], [facility], 620 estela high risk [address]. [address] HPV DNA test tel:[phone], St, [place], positive [address] [place], [place], [address]. [id number], tel:+ [phone] tel:[phone] [facility] Human Ron-0 Dennise Abreu. 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 [address] (general) St, St, [place], (routine) w/o [place], [place], [place], [address]. [id number], findingsEncounte [place] r for oth tel:[phone] screening for [phone] malignant neoplasm of breastEncntr screen mammogram for malignant neoplasm of breast [facility] Noninflammatory Mar-2 Rap[facility] [place] disorder of 9-201 Luisa. [address] [place] vagina, [address], [place], [place], [place], [address] [address] tel:[phone] St, [place], [address] [place], [id number], tel:[phone] [facility] STI [facility] [place] ScreeningYeast-v [address]. [address] [place] ulvovaginalGYN [address], [place] Exam, Routine [place], [place], [place], [address] [place] [address]. [address] tel:[phone] , [place], [address] [place], [id number], tel:[phone] Family History Family Member Diagnosis Age At Onset 1st degree relative No hx of coronary heart disease (female <65, male <55) 1st degree relative No hx of venous thromboembolism Family history of Cancer, breast Paternal grandmother Colon and brain 1st degree relative No hx of cancer of breast, colon, endometrium or ovary Mother Hypertension Immunizations Vaccine Date Status Comments No information Payers Payer name Insurance type Covered republican ID Authorization(s) Blue Choice [facility] [id number] Social History Type Description Quantity Date Captured Comments Alcohol Use Details Unknown Caffeine Use Details Unknown Tobacco Use Status Unknown Smoking Status Never smoker Sex Female Vital Signs Date / Height Weight BMI Pulse Blood Temperature Respiratory Body Head BMI Pulse Inhaled Time: Rate Pressure Rate Surface Circumference percentile Ox Ox Area No information Chief Complaint And Reason For Visit Most recent encounter only, dated '05/31/2019 16:40'. Genital Lesions a/ o Bumps a/o Sores (chief complaint) Reason For Referral Reason For Referral No information Plan Of Treatment Date Type Action Status Referral Ordered: ordered Manish Payne (related to Abnormal uterine and vaginal bleeding, unspecified) Referral Referred To: ordered Manish Payne [address] [place], [phone] Ordered: Referrals: Emergency Doctor. Manish Payne. Evaluate and treat History Of Present Illness Encounter Date Complaint History Of Present Illness No information Functional Status Date Functional Assessment No information Medications Administered Medication Instructions Dosage Effective Dates (start - stop) Status Comments No information Instructions Date Instruction Additional Information No information Assessments Type Assessment Date assessment Encounter for oth general cnsl and advice on contraception 2018 assessment Encntr screen for infections w sexl mode of transmiss assessment Herpesviral infection of urogenital system, unspecified 2018 Goals Health Concern Goal Type Priority Status Date No information Medical Equipment Description Device [place] Device Identifier Effective Dates (start - stop ) Status No information Mental Status Date Cognitive Assessment No information Health Concerns Observation Date No information Concern Status Date No information
[2019-06-04 20:01] VITALS: BP 130/93
[2019-06-04] MEDS ORDERED: NS 0.9% 1000 ML** 1,000 ML IV ONE (20:38)
--- NOTE | 2019-06-04 20:41 | UC ---
Abdominal Pain Female HPI - HPI Summary HPI Summary: PATIENT UNDERWENT LAPAROSCOPIC SLEEVE GASTRECTOMY BY DR. GUSTAFSON 01/31/19. FOR THE PAST 2-3 WEEKS HAS BEEN HAVING WORSENING EPIGASTRIC/LEFT UPPER QUADRANT ABDOMINAL PAIN. SHE DENIES ANY NAUSEA. NO FEVER. - History of Current Complaint Chief Complaint: UCAbdominalPain Stated Complaint: ABDOMINAL PAIN Time Seen by Provider: 06/04/19 20:28 Hx Obtained From: Patient Hx Last Menstrual Period: 2012 - had uterine ablation Onset/Duration: Gradual Onset, Lasting Weeks, Still Present Timing: Constant Severity Initially: Moderate Severity Currently: Moderate Pain Intensity: 6 Pain Scale Used: 0-10 Numeric Location: Discrete At: LUQ, Epigastric Radiates: No Character: Sharp Aggravating Factor(s): Nothing Alleviating Factor(s): Nothing Associated Signs and Symptoms: Positive: Negative Allergies/Adverse Reactions: Allergies Allergy/AdvReac Type Severity Reaction Status Date / Time clindamycin Allergy Rash Verified 05/21/19 15:55 latex Allergy Rash Verified 05/21/19 15:55 pseudoephedrine Allergy Anaphylatic Verified 05/21/19 15:55 Shock codeine AdvReac See Comment Verified 05/21/19 15:55 morphine AdvReac n/v Verified 05/21/19 15:55 Home Medications: Home Medications Docusate CAP* [Colace Cap*] 100 mg PO BEDTIME 06/04/19 [History Confirmed ] Omeprazole 40 mg PO DAILY 06/04/19 [History Confirmed 06/04/19] Sertraline* [Zoloft*] 50 mg PO BEDTIME 06/04/19 [History Confirmed 06/04/19] ValACYclovir (*) [Valtrex 500 mg (*)] 500 mg PO DAILY 06/04/19 [History Confirmed 06/04/19] PMH/Surg Hx/FS Hx/Imm Hx Cardiovascular History: Hypertension - Surgical History Surgical History: Yes Surgery Procedure, Year, and Place: Gastric sleeve January 2019. breast reduction 2000. tubal ligation 2007. gall bladder removed 1989. benign tumor removed from uterus 12/07/12. GANGLION CYST. Uterine Ablation 2012. D&C - Family History Known Family History: Positive: Hypertension, Respiratory Disease - asthma Negative: Diabetes Family History: Dyslipidemia - Social History Alcohol Use: Rare Alcohol Amount: holiday Substance Use Type: None Smoking Status (MU): Never Smoked Tobacco Have You Smoked in the Last Year: No - Immunization History Most Recent Influenza Vaccination: June 24, 2015 Most Recent Tetanus Shot: up to date - she thinks in 2014 she received it Most Recent Pneumonia Vaccination: unsure Review of Systems All Other Systems Reviewed And Are Negative: Yes Constitutional: Positive: Negative Respiratory: Positive: Negative Cardiovascular: Positive: Negative Gastrointestinal: Positive: Abdominal Pain Genitourinary: Positive: Negative Physical Exam Triage Information Reviewed: Yes Appearance: Well-Appearing, No Pain Distress, Well-Nourished Vital Signs: Initial Vital Signs Temp 98.3 F 06/04/19 19:56 Pulse 63 06/04/19 19:56 Resp 16 06/04/19 19:56 BP 130/93 06/04/19 19:56 Pulse Ox 100 06/04/19 19:56 Vital Signs Reviewed: Yes Eyes: Positive: Conjunctiva Clear ENT: Positive: Hearing grossly normal Neck: Positive: Supple Respiratory Exam: Normal Cardiovascular Exam: Normal Abdomen Description: Positive: Soft, Other: - TTP EPIGASTRIC AND LUQ REGION. NO REBOUND OR RIGIDITY. Negative: Distended, Guarding Bowel Sounds: Positive: Present Musculoskeletal: Positive: No Edema Neurological: Positive: Alert Psychological: Positive: Age Appropriate Behavior Skin: Negative: Rashes Abd Pain Female Course/Dx - Course Course Of Treatment: PATIENT ARRIVES WITH 2-3 WEEKS OF WORSENING EPIGASTRIC/LEFT UPPER QUADRANT ABDOMINAL PAIN. HAD BARIATRIC SURGERY (LAPAROSCOPIC SLEEVE GASTRECTOMY) . PATIENT REQUIRES HIGHER LEVEL OF SERVICE IN WHAT IS AVAILABLE . TO [facility] [place] [place] [facility] BY AMBULANCE. - Differential Dx/Diagnosis Provider Diagnosis: Abdominal pain, left upper quadrant - Physician Notification/Consults Discussed Care of Patient With: Halle Adams - TO [facility] [place] [place] [facility] BY AMBULANCE Time Discussed With Above Provider: 20:45 Instructed by Provider To: MD Will See In ED Discharge ED - Sign-Out/Discharge Documenting (check all that apply): Patient Departure All imaging exams completed and their final reports reviewed: No Studies - Discharge Plan Condition: Stable Disposition: TRANS HIGHER LVL OF CARE FAC Patient Education Materials: Abdominal Pain (ED) Referrals: Delano Hylton DO [Primary Care Provider] - - Billing Disposition and Condition Condition: STABLE Disposition: Trans Higher Lvl of Care Fac
== END 2019-06-04 21:08 | disposition short-term general hospital (02) ==
LOC: UCEAST 19:48
DX: R10.12 Left upper quadrant pain (principal); R10.13 Epigastric pain; I10 Essential (primary) hypertension; Z90.3 Acquired absence of stomach [part of]; Z88.1 Allergy status to other antibiotic agents; Z91.040 Latex allergy status; Z88.8 Allergy status to other drugs, medicaments and biological substances; Z88.5 Allergy status to narcotic agent
CPT/HCPCS: 99213; G0463

== ENCOUNTER 2019-06-04 21:18 | Emergency (ER) | payer BC ==
[2019-06-04] MEDS ORDERED: Thiamine INJ* 100 MG, Folic Acid IV* 1 MG, Multiple Vitamin IV ADULT* 10 ML in NS 0.9% ... IV ONE ×2 (21:46→22:00)
[2019-06-04 21:50] LABS: ABS Eosinophils 0.1 10^3/ul (0-0.6); ABS Lymphocytes 2.3 10^3/ul (1.0-4.8); ABS Monocytes 0.5 10^3/ul (0-0.8); ABS Neutrophils 4.5 10^3/ul (1.5-7.7); Eosinophil % 1.3 %; Hematocrit 43 % (35-47); Hemoglobin 14.4 g/dL (12.0-16.0); Lymphocyte % 30.6 %; Mean Corpuscular HGB Conc 34 g/dL (31-36); Mean Corpuscular Hemoglobin 31 pg (27-31); Mean Corpuscular Volume 93 fL (80-97); Mean Platelet Volume 8.7 fL (7.4-10.4); Nucleated Red Blood Cells % 0.1; Platelet Count 248 10^3/uL (150-450); Red Cell Distribution Width 15 % (10-15); White Blood Count 7.4 10^3/uL (3.5-10.8)
[2019-06-04] MEDS ORDERED: fentaNYL* 50 MCG/ML 2 ML VIAL (100 MCG VIAL) IV SLOW PU ONE (21:56)
--- NOTE | 2019-06-04 21:57 | ED ---
Abdominal Pain/Female - HPI Summary HPI Summary: The pt is a 48 yr old female presenting to [facility] via EMS c/o bilateral upper quadrant abd pain beginning before 05/19/19, then worsening since 06/02/2019. Pt states the pain has been constant since it started a few weeks ago. Pt was transferred from [facility] via EMS where she had gone with c/o abd pain and was seen by Dr. Ashton. She did not receive any medications from urgent care or EMS. She is s/p gastric sleeve surgery on 01/31/[address] Short. The pt also notes that she is s/p cholecystectomy. She received a "banana bag" as an outpatient earlier this month for dehydration "sometime before 05/19/19" (she knows this date because she went away this date). She describes the abd pain as a pressure and rates her current pain severity a 6/10 due to her abd. The abd pain is worse with eating/drinking. No alleviating factors noted. She also reports gas, bloating, constipation, then diarrhea after taking milk of magnesia, and nausea but denies any vomiting, fever, chills , black tarry stool, or ruslan red blood per rectum, or blood with her stool. Pt states she had one episode of blood in the toilet bowl but there was no blood on the toilet tissue and she was no sure if that blood was vaginal or rectal. She has had a uterine ablation in 2012 but states she does occasionally have vaginal spotting. Vital signs in the EMS HR: 64, BP 126/84, O2 Sat 99%. - History of Current Complaint Chief Complaint: EDAbdPain Stated Complaint: ABD PAIN MPER EMS Time Seen by Provider: 06/04/19 21:40 Hx Obtained From: Patient, Medical Records - record, Dr. Poli Mcintosh Last Menstrual Period: 2012 - had uterine ablation Onset/Duration: Sudden Onset, Lasting Weeks, Still Present Timing: Constant Severity Initially: Moderate Severity Currently: Moderate Pain Intensity: 6 Pain Scale Used: 0-10 Numeric Location: Discrete At: RUQ, Discrete At: LUQ, Epigastric Radiates: No Character: Other: - pressure Aggravating Factor(s): Food, Other: - drinking Alleviating Factor(s): Nothing Associated Signs and Symptoms: Positive: Negative - chills, black tarry stool, ruslan red blood, Constipation, Nausea, Diarrhea - after milk of magnesia, Other : - pos - gas, bloating. Negative: Fever, Vomiting Allergies/Adverse Reactions: Allergies Allergy/AdvReac Type Severity Reaction Status Date / Time clindamycin Allergy Rash Verified 06/04/19 22:06 latex Allergy Rash Verified 06/04/19 22:06 pseudoephedrine Allergy Anaphylatic Verified 06/04/19 22:06 Shock codeine AdvReac See Comment Verified 06/04/19 22:06 morphine AdvReac n/v Verified 06/04/19 22:06 PMH/Surg Hx/FS Hx/Imm Hx Previously Healthy: No Endocrine/Hematology History: Denies: Hx Diabetes, Hx Thyroid Disease Cardiovascular History: Reports: Hx Hypertension Denies: Hx Congestive Heart Failure, Other Cardiovascular Problems/Disorders Respiratory History: Reports: Hx Sleep Apnea - previous dx KRISTOPHER, not using CPAP Denies: Hx Asthma, Hx Chronic Obstructive Pulmonary Disease (COPD), Other Respiratory Problems/Disorders GI History: Reports: Hx Gastroesophageal Reflux Disease, Hx Irritable Bowel Denies: Hx Ulcer, Other GI Disorders History: Denies: Hx Renal Disease Musculoskeletal History: Reports: Hx Arthritis - neck, knees Denies: Hx Rheumatoid Arthritis, Hx Osteoporosis Sensory History: Denies: Hx Contacts or Glasses, Hx Hearing Aid Opthamlomology History: Denies: Hx Contacts or Glasses Neurological History: Reports: Hx Migraine Denies: Other Neuro Impairments/Disorders Psychiatric History: Reports: Hx Anxiety, Hx Depression, Hx Community Mental Health Tx - Cancer History Hx Chemotherapy: No Hx Radiation Therapy: No - Surgical History Surgery Procedure, Year, and Place: Gastric sleeve January 2019. breast reduction 2000. tubal ligation 2007. gall bladder removed 1989. benign tumor removed from uterus 12/07/12. GANGLION CYST. Uterine Ablation 2012. D&C Hx Anesthesia Reactions: No Infectious Disease History: No Infectious Disease History: Denies: Hx Clostridium Difficile, Hx Hepatitis, Hx Human Immunodeficiency Virus (HIV), Hx of Known/Suspected MRSA, Hx Shingles, Hx Tuberculosis, Hx Known/ Suspected VRE, Hx Known/Suspected VRSA, History Other Infectious Disease, Traveled Outside the [place] in Last 30 Days - Family History Known Family History: Positive: Hypertension, Respiratory Disease - asthma Negative: Diabetes Family History: Dyslipidemia - Social History Alcohol Use: Rare - "on holidays", states that's how she got dehydrated earlier this month, also had "a couple sips" on 05/29/19 Alcohol Amount: holiday Substance Use Type: Reports: None Hx Tobacco Use: No Smoking Status (MU): Never Smoked Tobacco Have You Smoked in the Last Year: No Review of Systems Negative: Fever, Chills Cardiovascular: Negative Respiratory: Negative Gastrointestinal: Negative - black tarry stool, ruslan red blood , Other - pos - gas, bloating Positive: Abdominal Pain, Diarrhea - after taking milk of magnesia , Nausea, Other - constipation. Negative: Vomiting Positive: no symptoms reported Musculoskeletal: Negative Skin: Negative Neurological: Negative Psychological: Normal All Other Systems Reviewed And Are Negative: Yes Physical Exam - Summary Physical Exam Summary: Appearance: Well-appearing, moderate pain distress due to epigastric pain, well- nourished Skin: Warm, color reflects adequate perfusion, dry Head: Normal Head/Face inspection, atraumatic Eyes: Conjunctiva clear ENT: Normal inspection Neck: Supple, no nodes, no JVD Respiratory: Lungs clear, normal breath sounds, no respiratory distress Cardio: RRR, No murmur, pulses normal, brisk capillary refill Abdomen: Soft, tender epigastrium, no rebound, no guarding, no masses, non- distended Rectal: minimal brown stool in vault; nonthrombosed, nonpainful external hemorrhoids. 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 Psychological: Normal Neuro: Alert, muscle tone normal, no focal deficit Triage Information Reviewed: Yes Vital Signs On Initial Exam: Initial Vitals Temp Pulse Resp BP Pulse Ox 98.7 F 63 18 133/95 97 06/04/19 21:25 06/04/19 21:25 06/04/19 21:25 06/04/19 21:25 06/04/19 21:25 Vital Signs Reviewed: Yes Diagnostics - Vital Signs Vital Signs Temp Pulse Resp BP Pulse Ox 06/04/19 21:25 98.7 F 63 18 133/95 97 - Laboratory Lab Results: Lab Results 06/04/19 Range/Units 20:30 WBC 7.4 (3.5-10.8) 10^3/uL RBC 4.60 (3.70-4.87) 10^6 /uL Hgb 14.4 (12.0-16.0) g/dL Hct 43 (35-47) % MCV 93 (80-97) fL MCH 31 (27-31) pg MCHC 34 (31-36) g/dL RDW 15 (10-15) % Plt Count 248 (150-450) 10^3/uL MPV 8.7 (7.4-10.4) fL Neut % (Auto) 60.9 % Lymph % (Auto) 30.6 % [place] % (Auto) 6.7 % Eos % (Auto) 1.3 % Baso % (Auto) 0.5 % Absolute Neuts (auto) 4.5 (1.5-7.7) 10^3/ul Absolute Lymphs (auto) 2.3 (1.0-4.8) 10^3/ul Absolute Monos (auto) 0.5 (0-0.8) 10^3/ul Absolute Eos (auto) 0.1 (0-0.6) 10^3/ul Absolute Basos (auto) 0.0 (0-0.2) 10^3/ul Absolute Nucleated RBC 0.0 10^3/ul Nucleated RBC % 0.1 Result Diagrams: 06/04/19 20:30 06/04/19 20:30 Lab Statement: Any lab studies that have been ordered have been reviewed, and results considered in the medical decision making process. Re-Evaluation - Re-Evaluation First Eval Re-Evaluation Time: 22:30 Change: Unchanged Comment: Pain is controlled. Banana bag infusing. Abdominal Pain Fem Course/Dx - Course Course Of Treatment: The pt is a 48 yr old female s/p laparoscopic sleeve gastrectomy surg on 01/31/19 presenting to [facility] via EMS from [facility] c/o bilateral upper quadrant and epigastric abd pain x 3 weeks worsening 06/02/2019. Labs without abnormalities. Stool guaiac is neg. Pt was given a "banana bag" at 250ml /hr, zofran 4mg IV and fentanyl 100mcg IV. Dx is epigastric pain, s/p gastric sleeve surgery. Pt will be a sign out to Dr. Salgado @ the [phone] 06/04/2019 shift change. - Diagnoses Differential Diagnosis: Positive: Hepatitis, Pancreatitis, Peptic Ulcer Disease Provider Diagnoses: Epigastric pain, S/P laparoscopic sleeve gastrectomy Discharge ED - Sign-Out/Discharge Documenting (check all that apply): Sign-Out Patient Signing out patient TO: Nixon Kim Naomi - 06/04/19 at 2245 Patient Received Moderate/Deep Sedation with Procedure: No - Discharge Plan Referrals: Delano Hylton DO [Primary Care Provider] - - Attestation Statements Document Initiated by Scribe: Yes Documenting Scribe: Juanito Soto Provider For Whom Scribe is Documenting (Include Credential): Halle Adams MD Scribe Attestation: Juanito Salas, scribed for Halle Adams MD on 06/04/19 at 2250. Scribe Documentation Reviewed: Yes Provider Attestation: The documentation as recorded by the Juanito cain accurately reflects the service I personally performed and the decisions made by Halle sethi MD Status of Scribe Document: Viewed
[2019-06-04 22:01] LABS: Activated Partial Thrombo Time 38.7 seconds (26.0-38.0); INR 1.02 (0.82-1.09)
[2019-06-04 22:05] LABS: ALT 12 U/L (7-52); AST 17 U/L (13-39); Albumin 4.3 g/dL (3.2-5.2); Albumin/Globulin Ratio 1.8 (1-3); Alkaline Phosphatase 82 U/L (34-104); Amylase 57 U/L (29-103); Anion Gap 6 mmol/L (2-11); BUN/Creatinine Ratio 17.1 (8-20); Blood Urea Nitrogen 12 mg/dL (6-24); C Reactive Protein 1.19 mg/L (<8.01); CO2 Carbon Dioxide 29 mmol/L (22-32); Calcium 9.8 mg/dL (8.6-10.3); Chloride 103 mmol/L (101-111); EGFR African American 108.5 (>60); EGFR Non-African American 89.7 (>60); Globulin 2.4 g/dL (2-4); Glucose 80 mg/dL (70-100); Magnesium 2.2 mg/dL (1.9-2.7); Potassium 3.8 mmol/L (3.5-5.0); Sodium 138 mmol/L (135-145); Total Protein 6.7 g/dL (6.4-8.9)
[2019-06-04 22:12] LABS: HCG Pregnancy < 0.60 mIU/mL
[2019-06-04 22:47] LABS: Urine Appearance Cloudy; Urine Bilirubin Negative (Negative); Urine Blood Negative (Negative); Urine Color Yellow; Urine Glucose Negative (Negative); Urine Ketones Trace (Negative); Urine Nitrite Negative (Negative); Urine Protein Negative (Negative); Urine Specific Gravity 1.016 (1.010-1.030); Urine Urobilinogen Negative (Negative)
--- NOTE | 2019-06-04 22:58 | ED ---
Progress - Progress Note Progress Note: This pt is a signout from Dr. Adams to Dr. Salgado at 2200 shift change pending disposition and UA. Dx is ABD pain. Pt will be discharged. Re-Evaluation - Re-Evaluation First Eval Re-Evaluation Time: 00:22 Change: Improved Comment: Pt is feeling improved and will be given GI cocktail. Course/Dx - Course Course Of Treatment: This pt is a signout from Dr. Adams to Dr. Salgado at 2200 shift change pending disposition and UA. Dx is ABD pain. Pt will be discharged. - Diagnoses Provider Diagnoses: S/P laparoscopic sleeve gastrectomy, Abdominal pain Discharge ED - Sign-Out/Discharge Documenting (check all that apply): Receiving Sign-Out Receiving patient FROM: Halle Adams - This pt is a signout from Dr. Adams to Dr. Salgado at 2200 shift change pending disposition and UA. Patient Received Moderate/Deep Sedation with Procedure: No - Discharge Plan Condition: Stable Disposition: HOME Patient Education Materials: Acute Abdominal Pain (ED) Referrals: Delano Hylton DO [Primary Care Provider] - 2 Days Additional Instructions: You were seen in the emergency department for abdominal pain. Your labs did not show any cause for this pain. If any studies were not completed at the time of discharge you will be called with the relevant results. Please follow up with your primary care doctor in next 2-3 days and return to emergency department for worsening pain, inability to eat or drink, or concerning symptoms. It was a pleasure taking care of you today. - Billing Disposition and Condition Condition: STABLE Disposition: Home - Attestation Statements Document Initiated by Kendalibe: Yes Documenting Scribe: Rober Mason Provider For Whom Consuelo is Documenting (Include Credential): Dr. Nixon Salgado MD Scribe Attestation: I, bree Dumased for Dr. Nixon Salgado MD on 06/05/19 at 0643. Scribe Documentation Reviewed: Yes Provider Attestation: The documentation as recorded by the Rober cain accurately reflects the service I personally performed and the decisions made by me, Dr. Nixon Salgado MD Status of Scribe Document: Viewed
[2019-06-05] MEDS ORDERED: Al Hydrox/Mg Hydrox/Simet LIQ* 30 ML UDC PO ONE (00:22)
[2019-06-05] MEDS ORDERED: Lidocaine 2% VISCOUS* 15 ML UDC PO ONE (00:22)
[2019-06-05 03:05] VITALS: BP 128/85
== END 2019-06-05 03:03 | disposition home or self-care (01) ==
LOC: ED 21:18
DX: R10.13 Epigastric pain (principal); R10.11 Right upper quadrant pain; R10.12 Left upper quadrant pain; R00.1 Bradycardia, unspecified; R11.0 Nausea; R19.7 Diarrhea, unspecified; K59.00 Constipation, unspecified; I10 Essential (primary) hypertension; Z98.84 Bariatric surgery status; Z90.49 Acquired absence of other specified parts of digestive tract; Z88.5 Allergy status to narcotic agent; Z88.8 Allergy status to other drugs, medicaments and biological substances; Z88.1 Allergy status to other antibiotic agents; Z91.040 Latex allergy status
CPT/HCPCS: 36415; 80053; 81003; 82150; 82272; 83605; 83690; 83735; 84484; 84702; 85025; 85610; 85730; 86140; 93005; 96365; 96366; 96375; 99282; A9270-GY; J3010; J3411

== ENCOUNTER 2019-06-05 15:24 | Observation (INO) | payer BC ==
[2019-06-05 16:49] LABS: ABS Eosinophils 0.1 10^3/ul (0-0.6); ABS Lymphocytes 1.8 10^3/ul (1.0-4.8); ABS Monocytes 0.5 10^3/ul (0-0.8); ABS Neutrophils 4.8 10^3/ul (1.5-7.7); Eosinophil % 1.3 %; Hematocrit 40 % (35-47); Hemoglobin 14.1 g/dL (12.0-16.0); Lymphocyte % 24.8 %; Mean Corpuscular HGB Conc 35 g/dL (31-36); Mean Corpuscular Hemoglobin 32 pg (27-31); Mean Corpuscular Volume 93 fL (80-97); Mean Platelet Volume 8.5 fL (7.4-10.4); Platelet Count 235 10^3/uL (150-450); Red Blood Count 4.35 10^6 /uL (3.70-4.87); Red Cell Distribution Width 15 % (10-15); White Blood Count 7.2 10^3/uL (3.5-10.8)
[2019-06-05 17:19] LABS: Albumin 3.9 g/dL (3.2-5.2); Albumin/Globulin Ratio 1.7 (1-3); BUN/Creatinine Ratio 15.3 (8-20); C Reactive Protein 1.3 mg/L (<8.01); EGFR African American 105.1 (>60); EGFR Non-African American 86.8 (>60); Globulin 2.3 g/dL (2-4); Magnesium 2.1 mg/dL (1.9-2.7); Total Bilirubin 0.4 mg/dL (0.2-1.0); Total Protein 6.2 g/dL (6.4-8.9)
[2019-06-05 17:37] LABS: Potassium 4.1 mmol/L (3.5-5.0)
--- NOTE | 2019-06-05 18:34 | ED ---
GI/ HPI - HPI Summary HPI Summary: This patient is a 48 year old female presenting to [facility] with a chief complaint of abdominal pain. She was sent by Dr. Mendoza's office. She is 3 months post gastric sleeve. She was seen here last night and had a banana bag, labs and a stool sample but did not get a CT. Dr. Mendoza' wants the patient to have a CT and to be evaluated by a surgeon. She reports nausea. She rates her pain 5/10 in severity. - History of Current Complaint Chief Complaint: EDAbdPain Time Seen by Provider: 06/05/19 18:25 Stated Complaint: ABD PAIN PER PT Hx Obtained From: Patient Hx Last Menstrual Period: 2012 - had uterine ablation Onset/Duration: Started Days Ago Timing: Constant Pain Intensity: 5 Associated Signs and Symptoms: Positive: Nausea - Additional Pertinent History Primary Care Physician: [id number] - Allergy/Home Medications Allergies/Adverse Reactions: Allergies Allergy/AdvReac Type Severity Reaction Status Date / Time clindamycin Allergy Rash Verified 06/05/19 15:32 latex Allergy Rash Verified 06/05/19 15:32 pseudoephedrine Allergy Anaphylatic Verified 06/05/19 15:32 Shock codeine AdvReac See Comment Verified 06/05/19 15:32 morphine AdvReac n/v Verified 06/05/19 15:32 Home Medications: Home Medications Docusate Sodium [Stool Softener] 100 mg PO TID 06/05/19 [History Confirmed 06/05] Lisinopril TAB* [Prinivil TAB*] 10 mg PO DAILY 06/05/19 [History Confirmed 06/05] Multivitamins/Minerals TAB* [Theragran/minerals TAB*] 1 tab PO DAILY 06/05/19 [ History Confirmed 06/05/19] Omeprazole CAP (NF) [Prilosec CAP* 20 MG] 40 mg PO DAILY 06/05/19 [History Confirmed 06/05/19] Potassium Chloride [Klor-Con] 10 meq PO DAILY 06/05/19 [History Confirmed ] ValACYclovir (*) [Valtrex 1 GM(*)] 1 gm PO DAILY 06/05/19 [History Confirmed ] PMH/Surg Hx/FS Hx/Imm Hx Endocrine/Hematology History: Denies: Hx Diabetes, Hx Thyroid Disease Cardiovascular History: Reports: Hx Hypertension Denies: Hx Congestive Heart Failure, Other Cardiovascular Problems/Disorders Respiratory History: Reports: Hx Sleep Apnea - previous dx KRISTOPHER, not using CPAP Denies: Hx Asthma, Hx Chronic Obstructive Pulmonary Disease (COPD), Other Respiratory Problems/Disorders GI History: Reports: Hx Gastroesophageal Reflux Disease, Hx Irritable Bowel Denies: Hx Ulcer, Other GI Disorders History: Denies: Hx Renal Disease Musculoskeletal History: Reports: Hx Arthritis - neck, knees Denies: Hx Rheumatoid Arthritis, Hx Osteoporosis Sensory History: Denies: Hx Contacts or Glasses, Hx Hearing Aid Opthamlomology History: Denies: Hx Contacts or Glasses Neurological History: Reports: Hx Migraine Denies: Other Neuro Impairments/Disorders Psychiatric History: Reports: Hx Anxiety, Hx Depression, Hx Community Mental Health Tx - Cancer History Hx Chemotherapy: No Hx Radiation Therapy: No - Surgical History Surgery Procedure, Year, and Place: Gastric sleeve January 2019. breast reduction 2000. tubal ligation 2007. gall bladder removed 1989. benign tumor removed from uterus 12/07/12. GANGLION CYST. Uterine Ablation 2012. D&C Hx Anesthesia Reactions: No Infectious Disease History: No Infectious Disease History: Denies: Hx Clostridium Difficile, Hx Hepatitis, Hx Human Immunodeficiency Virus (HIV), Hx of Known/Suspected MRSA, Hx Shingles, Hx Tuberculosis, Hx Known/ Suspected VRE, Hx Known/Suspected VRSA, History Other Infectious Disease, Traveled Outside the [place] in Last 30 Days - Family History Known Family History: Positive: Hypertension, Respiratory Disease - asthma Negative: Diabetes Family History: Dyslipidemia - Social History Alcohol Use: Rare - "on holidays", states that's how she got dehydrated earlier this month, also had "a couple sips" on 05/29/19 Alcohol Amount: holiday Substance Use Type: Reports: None Hx Tobacco Use: No Smoking Status (MU): Never Smoked Tobacco Have You Smoked in the Last Year: No Review of Systems Negative: Fever Positive: Abdominal Pain, Nausea All Other Systems Reviewed And Are Negative: Yes Physical Exam - Summary Physical Exam Summary: VITAL SIGNS: Reviewed. GENERAL: Patient is a well-developed and nourished female who is lying comfortable in the stretcher. Patient is not in any acute respiratory distress. HEAD AND FACE: Normocephalic and atraumatic. EYES: PERRLA, EOMI x 2, No injected conjunctiva. EARS: Hearing grossly intact. Ear canals and tympanic membranes are WNL. MOUTH: Oropharynx within normal limits. NECK: Supple, trachea is midline, no adenopathy, no JVD. CHEST: Symmetric, no tenderness at palpation. LUNGS: Clear to auscultation bilaterally. No wheezing or crackles. CVS: RRR, S1 and S2 present, no murmurs or gallops appreciated. ABDOMEN: Soft, non-tender. No signs of distention. Positive bowel sounds. No rebound, no guarding, and no masses palpated. No abdominal bruit or pulsations. EXTREMITIES: FROM in all major joints, no edema, no cyanosis or clubbing. NEURO: Alert and oriented x 3. No acute neurological deficits. Speech is normal. SKIN: Dry and warm. Triage Information Reviewed: Yes Vital Signs On Initial Exam: Initial Vitals Temp Pulse Resp BP Pulse Ox 98.0 F 76 16 139/91 100 06/05/19 15:27 06/05/19 15:27 06/05/19 15:27 06/05/19 15:27 06/05/19 15:27 Vital Signs Reviewed: Yes Diagnostics - Vital Signs Vital Signs Temp Pulse Resp BP Pulse Ox 06/05/19 17:38 98.4 F 67 17 122/92 100 06/05/19 15:27 98.0 F 76 16 139/91 100 - Laboratory Lab Results: Lab Results 06/05/19 06/05/19 06/05/19 Range/Units 16:28 16:28 16:28 WBC 7.2 (3.5-10.8) 10^3/uL RBC 4.35 (3.70-4.87) 10^6 /uL Hgb 14.1 (12.0-16.0) g/dL Hct 40 (35-47) % MCV 93 (80-97) fL MCH 32 H (27-31) pg MCHC 35 (31-36) g/dL RDW 15 (10-15) % Plt Count 235 (150-450) 10^3/uL MPV 8.5 (7.4-10.4) fL Neut % (Auto) 66.6 % Lymph % (Auto) 24.8 % [place] % (Auto) 6.8 % Eos % (Auto) 1.3 % Baso % (Auto) 0.5 % Absolute Neuts (auto) 4.8 (1.5-7.7) 10^3/ul Absolute Lymphs (auto) 1.8 (1.0-4.8) 10^3/ul Absolute Monos (auto) 0.5 (0-0.8) 10^3/ul Absolute Eos (auto) 0.1 (0-0.6) 10^3/ul Absolute Basos (auto) 0.0 (0-0.2) 10^3/ul Absolute Nucleated RBC 0.0 10^3/ul Nucleated RBC % 0.0 Sodium 139 (135-145) mmol/L Potassium 4.1 (3.5-5.0) mmol/L Chloride 107 (101-111) mmol/L Carbon Dioxide 29 (22-32) mmol/L Anion Gap 3 (2-11) mmol/L BUN 11 (6-24) mg/dL Creatinine 0.72 (0.51-0.95) mg/dL Est GFR ( Amer) 105.1 (>60) Est GFR (Non-Af Amer) 86.8 (>60) BUN/Creatinine Ratio 15.3 (8-20) Glucose 95 (70-100) mg/dL Lactic Acid 0.8 (0.5-2.0) mmol/L Calcium 9.0 (8.6-10.3) mg/dL Magnesium 2.1 (1.9-2.7) mg/dL Total Bilirubin 0.40 (0.2-1.0) mg/dL AST 14 (13-39) U/L ALT 12 (7-52) U/L Alkaline Phosphatase 76 (34-104) U/L C-Reactive Protein 1.30 (<8.01) mg/L Total Protein 6.2 L (6.4-8.9) g/dL Albumin 3.9 (3.2-5.2) g/dL Globulin 2.3 (2-4) g/dL Albumin/Globulin Ratio 1.7 (1-3) Lipase 68 (11.0-82.0) U/L Result Diagrams: 06/05/19 16:28 06/05/19 16:28 Lab Statement: Any lab studies that have been ordered have been reviewed, and results considered in the medical decision making process. - CT Abd/Pel CT Interpretation Completed By: Radiologist Summary of CT Findings: 1. Status post cholecystectomy and gastric sleeve. The gastric sleeve is new since 10/02/16. Cholecystectomy is unchanged. 2. Heterogenous uterine enhancement suggesting leiomyomatous change. ED Provider has reviewed this report. GIGU Course/Dx - Course Assessment/Plan: This patient is a 48 year old female presenting to [facility] with a chief complaint of abdominal pain. She discussed symptoms with Dr. Short and he recommended to return to the ED and get an evaluation by a surgeon. She is 3 months post gastric sleeve. She was seen here last night and had a banana bag, labs and a stool sample but did not get a CT. Dr. Pfeiffer' wants the patient to have a CT and to be evaluated by a surgeon. She reports nausea. She rates her pain 5/10 in severity. Blood work without any significant abnormality except for total protein of 6.2. Urinalysis is negative for UTI. In the ED course the patient was given a banana bag. Abdominal and pelvic CT IMPRESSION: 1. Status post cholecystectomy and gastric sleeve. The gastric sleeve is new. since 10/02/2016. Cholecystectomy is unchanged. 2. Heterogeneous uterine enhancement suggesting leiomyomatous change. 3. Otherwise negative CT abdomen/pelvis. I discussed my findings and test results with the nurse from Dr. Hagen from surgery since Dr. Hagen is in the procedure. I was informed that Dr. Hagen will be consulted the patient in the ER. The patient continues to be hemodynamically stable. She did not require any pain medication. This patient will be signed out to Dr. Salgaod to follow-up the recommendations from Dr. Hagen. - Diagnoses Provider Diagnoses: Upper abdominal pain - Physician Notifications Discussed Care Of Patient With: Richard Hagen - Surgery Time Discussed With Above Provider: 21:46 Instructed by Provider To: MD Will See In ED Discharge ED - Sign-Out/Discharge Documenting (check all that apply): Sign-Out Patient Signing out patient TO: Nixon Salgado - At shift change 2200 Pending consult and disposition. - Discharge Plan Condition: Stable Referrals: Delano Hylton DO [Primary Care Provider] - - Attestation Statements Document Initiated by Scribe: Yes Documenting Scribe: Heriberto Watkins Provider For Whom Scribe is Documenting (Include Credential): Jono Velarde MD Scribe Attestation: I, Heriberto Watkins, scribed for Jono Velarde MD on 06/05/19 at 2159. Scribe Documentation Reviewed: Yes Provider Attestation: The documentation as recorded by the scribe, Heriberto Watkins accurately reflects the service I personally performed and the decisions made by me, Jono Velarde MD Status of Scribe Document: Viewed
[2019-06-05 18:53] LABS: Urine Appearance Cloudy; Urine Bacteria 1+ (Absent); Urine Bilirubin Negative (Negative); Urine Blood 1+ (Negative); Urine Color Yellow; Urine Glucose Negative (Negative); Urine Ketones Negative (Negative); Urine Nitrite Negative (Negative); Urine Protein Negative (Negative); Urine Red Blood Cell Trace(0-2/hpf) (Absent); Urine Specific Gravity 1.015 (1.010-1.030); Urine Squamous Epithelial Cell Present (Absent); Urine Urobilinogen Negative (Negative); Urine White Blood Cell Trace(0-5/hpf) (Absent)
[2019-06-05] MEDS ORDERED: Iohexol 300* (CONTRAST) 10 ML SDV IV ONE (19:47)
[2019-06-05] MEDS ORDERED: Thiamine INJ* 100 MG, Folic Acid IV* 1 MG, Multiple Vitamin IV ADULT* 10 ML in NS 0.9% ... IV ONE (21:28)
--- NOTE | 2019-06-05 22:12 | ED ---
Progress - Progress Note Progress Note: Pt is a signout from Dr. Velarde at 2200 on 06/05/19 pending surgery consult. Re-Evaluation - Re-Evaluation 1st re-eval Re-Evaluation Time: 22:49 Change: Unchanged Comment: Dr. Hagen states that the pt should be admitted to [facility]. Course/Dx - Diagnoses Provider Diagnoses: Upper abdominal pain - Provider Notifications Discussed Care Of Patient With: Richard Hagen Time Discussed With Above Provider: 22:49 Instructed by Provider To: Admit As Inpatient Discharge ED - Sign-Out/Discharge Documenting (check all that apply): Patient Departure, Receiving Sign-Out Receiving patient FROM: Jono Velarde - Discharge Plan Condition: Stable Disposition: ADMITTED TO [facility] Referrals: Delano Hylton DO [Primary Care Provider] - - Billing Disposition and Condition Condition: STABLE Disposition: Admitted to [facility] - Attestation Statements Document Initiated by Scribe: Yes Documenting Scribe: Huong Oscar Provider For Whom Consuelo is Documenting (Include Credential): Nixon Salgado MD. Scribe Attestation: IHuong, scribed for Nixon Salgado MD. on 06/05/19 at 2258. Scribe Documentation Reviewed: Yes Provider Attestation: The documentation as recorded by the scribeHuong accurately reflects the service I personally performed and the decisions made by , Nixon Salgado MD. Status of Scribe Document: Viewed
[2019-06-05] MEDS ORDERED: fentaNYL* 50 MCG/ML 2 ML VIAL (100 MCG VIAL) IV SLOW PU ONE (22:59)
[2019-06-05] MEDS ORDERED: HYDROmorphone INJ* 0.5 MG/0.5 ML SYRINGE IV SLOW PU PRN (23:03)
[2019-06-05] MEDS: Pantoprazole IV* 40 MG IV SCH (23:56)
--- NOTE | 2019-06-06 01:17 | HP ---
CC: [facility], Dr. Usman Short; [facility] * HISTORY AND PHYSICAL: DATE OF ADMISSION: 06/05/19 REASON FOR ADMISSION: Epigastric abdominal pain. HISTORY OF PRESENT ILLNESS: Ms. Marely Cunha is 48-year-old woman who presented to the emergency room with several weeks of epigastric abdominal discomfort, worsening over the past 4 to 5 days. Her past surgical history is significant for undergoing a laparoscopic sleeve gastrectomy in January [address] Short. She did well with this and has lost an appropriate amount of weight since that time. She did not have significant reflux disease preoperatively and has not had significant issues postoperatively, but does take omeprazole. The symptoms that she describes are constant epigastric discomfort that seems to be worse with eating. She does not have symptoms of reflux or dysphagia. She has had no pain radiating to the back. She states she has been having some problems with constipation recently. She has had no diarrhea. There has been no blood per rectum. She did have a meal at [employer] prior to presentation to the emergency room and had some nausea and said that she threw up once, but she has not had significant amount of vomiting over the past several weeks. While in the emergency room, she was noted to be afebrile with stable vital signs. Since her pain has been persistent over the past several weeks and seemed to be worsening despite being on omeprazole, she is to be admitted this evening for followup care and appropriate management. PAST MEDICAL HISTORY: 1. Osteoarthritis. 2. Hypertension. 3. Irritable bowel syndrome. 4. Gastroesophageal reflux disease. 5. Depression. 6. Low back pain. PAST SURGICAL HISTORY: 1. Open cholecystectomy. 2. Laparoscopic gastric sleeve as per above. ALLERGIES: She is allergic to CLINDAMYCIN, CODEINE which causes discomfort, LATEX causes rash, and SUDAFED. SOCIAL HISTORY: She does not use tobacco or alcohol. 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 She lives in [place]. PHYSICAL EXAMINATION GENERAL: Well-developed, well-nourished female, appears to be in no apparent distress. Face is somewhat flushed. VITAL SIGNS: Temperature 98.4, pulse 68, blood pressure 139/100. LUNGS: Clear to auscultation with normal respiratory effort. HEART: Regular rate and rhythm without murmurs, rubs, or gallops. ABDOMEN: Soft, nondistended. She has a well-healed right upper transverse incision from previous cholecystectomy without hernia. She has laparoscopic incision in the upper abdomen. Her abdomen otherwise is soft and nondistended, but she has tenderness in the epigastrium without rebound, guarding, or peritoneal irritation. She had normoactive bowel sounds throughout. PSYCHIATRIC: She appears to be awake, alert, and oriented x3, although her affect is somewhat blunted. DIAGNOSTIC STUDIES/LAB DATA: Laboratory workup included a normal white blood cell count. Electrolytes, BUN, and creatinine were all within normal limits. She had a lactic acid, was normal. C-reactive protein was also normal as well. She also underwent a CT scan of abdomen and pelvis. I did review these images. This shows no acute findings, in particular no significant unusual findings in the upper abdomen. IMPRESSION: Epigastric abdominal discomfort which has been present for the past several weeks after undergoing a laparoscopic sleeve gastrectomy in January 2019. She already takes omeprazole and her pain seems to have worsened over the past 3 to 4 days and is worse after eating. She has not had problems with nausea or vomiting, but has had a change in her bowel habits. Workup here in the emergency room was unremarkable including a normal CAT scan. I discussed the findings with her. Since her pain has persisted, we discussed options of admission and she would like to proceed with admission, with that we can expedite any further workup and testing in a timely fashion. PLAN: 1. She will be admitted to the surgical service. 2. We will keep her n.p.o. and start her on IV fluids. 3. We will most likely obtain GI consultation for consideration of upper endoscopy to rule out peptic ulcer disease or other gastritis type etiology. 4. We will discuss the care with Dr. Short tomorrow. [id number]/[facility] #: [id number] [facility]ITAL[facility]
[2019-06-06] MEDS: Lactated Ringers 1000 ML Bag* 1,000 ML IV SCH ×3 (02:50→22:31)
[2019-06-06] MEDS: Lisinopril TAB* 10 MG PO SCH (09:34)
--- NOTE | 2019-06-06 09:49 | PN ---
Progress Note - Progress Note Date of Service: 06/06/19 SOAP: Subjective: Comfortable in bed, C/O epigastric pain. + Flatus, - BM since admit, denies N/V [] Objective: Temp Pulse Resp BP Pulse Ox 98.6 F 60 18 111/67 96 06/06/19 04:13 06/06/19 04:51 06/06/19 04:13 06/06/19 04:13 06/06/19 04:13 Sodium 139 mmol/L (135-145) 06/05/19 16:28 Potassium 4.1 mmol/L (3.5-5.0) 06/05/19 16:28 BUN 11 mg/dL (6-24) 06/05/19 16:28 Creatinine 0.72 mg/dL (0.51-0.95) 06/05/19 16:28 Calcium 9.0 mg/dL (8.6-10.3) 06/05/19 16:28 Magnesium 2.1 mg/dL (1.9-2.7) 06/05/19 16:28 AST 14 U/L (13-39) 06/05/19 16:28 ALT 12 U/L (7-52) 06/05/19 16:28 Chest: CTA B/L CVS: RRR ABD: soft, + BS's, tender to palp in epigastrum, remaining exam - EXT: calves soft, NT [] Assessment: 48 yo female S/P Gastric Sleeve 01/22, 2 week Hx of epigastric pain[] Plan: EGD today.[]
[2019-06-06] MEDS ORDERED: Midazolam* 1 MG/ML 10 ML VIAL (10 MG) ONE (15:21)
[2019-06-06] MEDS ORDERED: fentaNYL* 50 MCG/ML 2 ML VIAL (100 MCG VIAL) ONE (15:21)
--- NOTE | 2019-06-06 17:47 | CONS ---
GASTROENTEROLOGY CONSULT: DATE OF CONSULT: 06/06 CONSULTING PHYSICIAN: Dr. Richard Hagen. REASON FOR CONSULT: Epigastric pain with burning and bloating with an increased persistence over the last 4 to 5 days. HISTORY: This 48-year-old woman had sleeve bariatric surgery on 01/31/19. She has lost 62 pounds. All this has seemed to have been as per plan. She says that for a couple of weeks after the surgery she had some trouble getting fluids down, but that resolved and the months of March, April, and early May were fine. She then began having epigastric burning distress and bloating. It was relatively constant the last 4 days. She has a history of tension headaches that affects her neck and temples. She has been under a significant stress with a son who is a drug addict living with her. He is 30. She has spent a month and a half taking care of a grandchild recently as the child's mother, her daughter, was in fpc. She denies history of long-term acid peptic disease or stomach problems. She had upper endoscopy on 02/18/15 in a previous attempt to plan bariatric surgery. That exam was negative by Dr. Forte at [facility]. PAST MEDICAL HISTORY: 1. Open cholecystectomy in 1988. 2. Breast reduction surgery by Dr. Wilkinson in the remote past. 3. 6, para 5, 1 AB. 4. History of anxiety. MEDICATIONS: See medication reconciliation. SOCIAL HISTORY: She lives with 4 of her children, 2 minors, 2 adults. 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 She has returned to work. REVIEW OF SYSTEMS: No history of syncope, IA, seizures. She has a history of migraine headaches and terms them horrible, but has not had one in several years. No history of TB, hemoptysis, ulcer disease. She did have a tubal ligation. No history of psoriasis. PHYSICAL EXAM: She is a substantially overweight young woman, in no overt distress. Her hair is dyed jet black. Her affect is rather blunted and she speaks very softly and almost reluctantly. She offers little spontaneous narrative. HEENT exam is unremarkable. She has no adenopathy. Her lungs are clear and heart sounds are normal. Breast/Pelvic Exams: Deferred. The abdomen is obese, symmetric with normal bowel sounds. Rectal: Deferred ( ). Extremities show no edema. DIAGNOSTIC STUDIES/LAB DATA: Labs - generally normal and LFTs and CRP are normal. CT scan abdomen and pelvis - no acute abnormality or fluid collection. IMPRESSION: Upper abdominal pain, burning in character, now 4 months after bariatric surgery. Upper endoscopy is planned. [id number]/[facility] #: [id number] [facility]
[2019-06-06] MEDS ORDERED: Sertraline* 50 MG TAB PO SCH (21:00)
[2019-06-06] MEDS: Pantoprazole IV* 40 MG IV SCH (22:31)
--- NOTE | 2019-06-06 23:11 | PRO ---
DATE: 06/06/19 - ROOM #453 REFERRING PHYSICIAN: Usman Short * PROCEDURE: Upper gastrointestinal endoscopy through distal duodenum. INDICATION: This 48-year-old woman with bariatric sleeve gastrectomy on and was admitted with epigastric burning pain. See admission history and physical and consult for details. ENDOSCOPIST: Dr. Mercedes. MEDICATIONS: Midazolam 7, fentanyl 62.5 FINDINGS: She is a substantially overweight middle-aged woman in no distress. She has jet black hair. She was positioned left side down and moderate sedation induced with sequential doses of medication. She tolerated the exam well after some transient gagging. EGD Larynx - seen. Esophagus - easily entered. The mucosa is normal in the upper, mid and lower esophagus with EG junction at 38 to 39, entirely intact and normal without any erosion, scarring or Aguilar's change whatsoever. There was no hiatal hernia or fundic prolapse. Stomach - the cardia appeared normal. Restriction of the fundus and body was evident. The mucosa appeared delicate, pale, pink, normal as expected. There was no bleeding and no erosions. All appeared quite well. The gastric antrum appeared normal. There were no erosions. Duodenum - the pylorus, bulb, and second through fourth portions appeared normal. During withdrawal, retroflexion was accomplished in the antrum and also to the high fundus and no abnormalities noted. IMPRESSION: 1. Normal anatomy after sleeve gastrectomy. 2. Burning abdominal pain and bowel habit changes -no cause seen; dietary choices and stress may be playing a role. [id number]/[facility] #: [id number] [facility]D
[2019-06-06] MEDS ORDERED: HYDROmorphone INJ1* 1 MG/ML SYRINGE IV SLOW PU PRN (23:33)
[2019-06-06] MEDS: Ondansetron INJ* 2 MG/ML VIAL IV PRN (23:41)
[2019-06-07] MEDS: Lisinopril TAB* 10 MG PO SCH (08:51)
[2019-06-07] MEDS: Lactated Ringers 1000 ML Bag* 1,000 ML IV SCH (08:51)
[2019-06-07] MEDS: Ondansetron INJ* 2 MG/ML VIAL IV PRN (09:04)
[2019-06-07 09:18] VITALS: BP 114/73
--- NOTE | 2019-06-07 10:04 | PN ---
Progress Note - Progress Note Date of Service: 06/07/19 SOAP: Subjective: Doing well Tolerating po Minimal discomfort in epigastric area EGD results reviewed Objective: Temp Pulse Resp BP Pulse Ox 98.5 F 56 16 114/73 95 06/07/19 07:15 06/07/19 07:15 06/07/19 07:15 06/07/19 07:15 06/07/19 07:15 PEX: Comfortable Lungs are clear Abd is soft and non-distended. Bowel sounds are present. Very mild upper abdominal tenderness, no rebound or guarding EGD results reviewed--normal exam Assessment: Epigastric pain after gastric sleeve 01/22--CT/labs/EGD WNL ? etiology of pain She is OK for discharge with appropriate outpatient followup Discussed with patient this morning Plan: D/C home today COntinue PPI Call with problems Bariatric follow up as outpatient.
--- NOTE | 2019-06-07 11:50 | DS ---
CC: Dr. Hylton, [facility]; Dr. Short, [facility], [facility]; Dr. Phillip Mercedes, GI * DISCHARGE SUMMARY: DATE OF ADMISSION: 06/05/19 DATE OF DISCHARGE: 06/07/19 PRINCIPAL DIAGNOSIS: Epigastric discomfort. PROCEDURE PERFORMED: Esophagogastroduodenoscopy. CONDITION ON DISCHARGE: Good. DISPOSITION: To home. MEDICATIONS ON DISCHARGE: 1. Lisinopril 10 mg daily. 2. Sertraline 50 mg daily. 3. Docusate 100 mg b.i.d. 4. Multivitamin 1 tablet. 5. Omeprazole 20 mg daily. 6. Potassium 10 mEq daily. 7. Valtrex 1 g p.o. daily. FOLLOWUP: The patient was instructed to follow up with the bariatric center for routine bariatric followup. She will continue on a proton pump inhibitor. DIET: Regular bariatric diet. INSTRUCTIONS: The patient was instructed to call or return to the emergency room if she develops severe abdominal pain, nausea, vomiting, severe reflux, dysphagia, fevers, shakes, chills, or have other questions or concerns. HISTORY OF PRESENT ILLNESS: Ms. Marely Cunha is a 48-year-old woman, who underwent a laparoscopic gastric sleeve bariatric surgery with Dr. Short in January 2019. She had a prior history of gastroesophageal reflux disease and was taking omeprazole, but her symptoms are well controlled. Over the past several weeks, she has been having some persistent epigastric pain made worse by eating. This discomfort had worsened in the last 3 to 4 days. She was seen in the emergency room 1 day prior to this admission and laboratory workup was unremarkable. She was discharged home. She returned to the emergency room and was noted to be afebrile. She had some mild epigastric discomfort on physical exam, but no evidence of peritonitis, hernia or rebound tenderness. Laboratory workup was completely unremarkable. A CT scan of the abdomen and pelvis with oral and IV contrast was also normal. HOSPITAL COURSE: The patient was seen in surgical consultation in the emergency room. Due to the fact that she was already on proton pump inhibitors and having persistent discomfort and a normal CT scan, it was felt that admission was warranted to expedite further workup, specifically a consultation with Gastroenterology. She was admitted to the surgical service and kept n.p.o. and started on IV proton pump inhibitors. On the day of admission, she underwent an upper endoscopy with Dr. Phillip Mercedes, which was essentially unremarkable without evidence of esophagitis or other esophageal abnormality and the stomach did appear to be unremarkable. After the procedure, she was started on a regular diet, which she tolerated well. Her pain was much improved and on the hospital day #2, she was eating well , remained afebrile with no tachycardia and minimal epigastric discomfort and it was felt that she could be followed up as an outpatient for further evaluation. She was discharged home. [id number]/[facility] #: [id number] LEONARDO
== END 2019-06-07 10:55 | disposition home or self-care (01) ==
LOC: ED 15:24 → MEDTELE 23:03
PROVIDERS: ADMIT Surgery; ATTEND Surgery
DX: R10.13 Epigastric pain (principal); R11.0 Nausea; I10 Essential (primary) hypertension; K21.9 Gastro-esophageal reflux disease without esophagitis; F41.9 Anxiety disorder, unspecified; F32.9 Major depressive disorder, single episode, unspecified; Z79.899 Other long term (current) drug therapy
CPT/HCPCS: 36415; 74177; 80053; 81003; 81015; 82272; 83605; 83690; 83735; 85025; 86140; 87086; 96365; 96366; 96372; 96375; 96376; 99156; 99284; A9270-GY; G0378; J2250; J2405; J3010; J3411; Q9967

== ENCOUNTER 2019-10-01 12:27 | Emergency (ER) | payer BC ==
--- OUTSIDE RECORDS SUMMARY | 2019-10-01 12:34 | XMS REPORT | Summary of Care ---
:1970 Author Organization [facility] Address [address] [facility] [place] [address] Care Team Providers Name Role Phone Kieran Ash Primary Care Provider Reason for Visit Reason Comments Fatigue x2 months Headache Encounter Details Date Type Department Care Team Description 09/04/2019 Office Visit [facility] GeovannaJacqueline, Malaise and fatigue (Primary Dx); Practice [employer] Diarrhea, unspecified type; [address] [facility] [place] [address] [place] [address] [phone] Allergies Active Allergy Reactions Severity Noted Date Comments Clindamycin Rash 09/08/2017 Codeine GI Reaction 09/08/2017 Stomach pain and chest pain Morphine GI Reaction Medium 02/04/2019 Pseudoephedrine Hcl Er Cardiac Reaction 09/08/2017 palpitations documented as of this encounter (statuses as of 09/05/2019) Medications Medication Sig Dispensed Refills Start Date End Date Status Acetaminophen (TYLENOL Take 500 mg by 0 Active PO) mouth TWICE DAILY. OMEPRAZOLE PO Take 2 Caps by 0 Active mouth DAILY. lisinopril (PRINIVIL, Take 1 Tab by 30 Tab 0 05/17/2019 Active ZESTRIL) 10 MG Oral mouth DAILY. TabIndications: Hypertension, unspecified type duloxetine (CYMBALTA) 60 Take 120 mg by 0 Active MG Oral CAPSULE ENTERIC mouth DAILY. COATED PARTICLES Docusate Sodium (COLACE Take by mouth 0 Active PO) NEEDED. Multiple Take by mouth. 0 Active Vitamins-Minerals (OPURITY PO) ondansetron (ZOFRAN) 4 Take 4 mg by 10 Tab 0 07/27/2019 Active MG Oral Tab mouth EVERY EIGHT HOURS NEEDED (nausea). documented as of this encounter (statuses as of 09/05/2019) Active Problems Problem Noted Date Primary osteoarthritis of right knee 01/06/2019 Vitamin D deficiency Anxiety and depression HTN (hypertension) documented as of this encounter (statuses as of 09/05/2019) Social History Tobacco Use Types Packs/Day Years [...] Sign Reading Time Taken Comments Blood Pressure 130/68 09/04/2019 3:09 PM EST Pulse 71 09/04/2019 3:09 PM EST Temperature - - Respiratory Rate - - Oxygen Saturation 99% 09/04/2019 3:09 PM EST Inhaled Oxygen Concentration - - Weight 69.9 kg (154 lb) 09/04/2019 3:09 PM EST Height - - Body Mass Index 29.1 08/22/2019 10:37 AM EST documented in this encounter Patient Instructions Patient InstructionsJacqueline Austin FNP - 09/04/2019 3:00 PM ESTLabs today Can try Claritin daily for ear issues - x 1 week Follow up with Dr Ash to establish PCP documented in this encounter Progress Notes Jacqueline Austin FNP - 09/04/2019 3:00 PM EST PATIENT: Marely Salcedo : 1970 DATE OF SERVICE: 09/04/2019 CHIEF COMPLAINT: Chief Complaint Patient presents with Fatigue x2 months Headache Subjective HISTORY OF PRESENT ILLNESS: Marely Salcedo is a 49-y.o. female. HPI C/o ongoing fatigue for several months. Had gastric sleeve surgery 01/31/19- prior to onset - has notfollowed up with surgeon yet. Pt has lost significant wt since January - >70 lbs. Past Medical History: Diagnosis Date Anxiety and depression External hemorrhoids 2018 10 years HTN (hypertension) Vitamin D deficiency Family History [...] Take 500 mg by mouth TWICE DAILY. Docusate Sodium (COLACE PO) Take by mouth NEEDED. duloxetine (CYMBALTA) 60 MG Oral CAPSULE ENTERIC COATED PARTICLES Take 120 mg by mouth DAILY. lisinopril (PRINIVIL, ZESTRIL) 10 MG Oral Tab Take 1 Tab by mouth DAILY. Multiple Vitamins-Minerals (OPURITY PO) Take by mouth. OMEPRAZOLE PO Take 2 Caps by mouth DAILY. ondansetron (ZOFRAN) 4 MG Oral Tab Take 4 mg by mouth EVERY EIGHT HOURS NEEDED (nausea). No current facility-administered medications for this visit. [...] Financial resource strain: Not on file Food insecurity Worry: Not on file Inability: Not on file Transportation needs Medical: Not on file Non-medical: Not on file Tobacco Use Smoking status: Never Smoker Smokeless tobacco: Never Used Substance and Sexual Activity Alcohol use: Yes Comment: rare Drug use: No Sexual activity: Never Lifestyle Physical activity Days per week: Not on file Minutes per session: Not on file Stress: Not on file Relationships Social connections Talks on phone: Not on file Gets together: Not on file Attends rastafari service: Not on file Active member of club or organization: Not on file Attends meetings of clubs or organizations: Not on file Relationship status: Not on file Intimate partner violence Fear of current or ex partner: Not [...] Not Asked Social History Narrative 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 Has 5 kids. REVIEW OF SYSTEMS: Review of Systems Constitutional: Positive for malaise/fatigue. Negative for chills and fever. HENT: Positive for congestion and ear pain. Respiratory: Negative for shortness of breath. Cardiovascular: Negative for palpitations and leg swelling. Gastrointestinal: Positive for diarrhea. Negative for abdominal pain, blood in stool, constipation, nausea and vomiting. Musculoskeletal: Negative for myalgias. Neurological: Positive for dizziness. Negative for weakness and headaches. Objective PHYSICAL EXAM: VITALS: BP 130/68 | Pulse 71 | Wt 154 lb (69.9 kg) | SpO2 99% | BMI 29.10 kg/m Body mass index is 29.1 kg/m. Physical Exam Vitals signs and nursing note reviewed. Constitutional: General: She is not in acute distress. Appearance: Normal appearance. HENT: Head: Normocephalic and atraumatic. Right Ear: Hearing normal. A middle ear effusion is present. Tympanic membrane is retracted. Left Ear: Hearing normal. A middle ear effusion is present. Tympanic membrane is retracted. Nose: Nose normal. Mouth/Throat: Mouth: Mucous membranes are moist. Pharynx: Oropharynx is clear. Eyes: Extraocular Movements: Extraocular movements intact. Conjunctiva/sclera: Conjunctivae normal. Pupils: Pupils are equal, round, and reactive to light. Neck: Musculoskeletal: Normal range of motion. No neck rigidity. Cardiovascular: Rate and Rhythm: Normal rate. Pulmonary: Effort: Pulmonary effort is normal. Breath sounds: Normal breath sounds. Abdominal: General: There is no distension. Palpations: Abdomen is soft. Tenderness: There is no abdominal tenderness. There is no guarding or rebound. Lymphadenopathy: Cervical: No cervical adenopathy. Skin: General: Skin is warm and dry. Capillary Refill: Capillary refill takes less than 2 seconds. Coloration: Skin is not pale. Neurological: Mental Status: She is alert and oriented to person, place, and time. Cranial Nerves: Cranial nerves are intact. Gait: Gait is intact. Psychiatric: Mood and Affect: Mood normal. Behavior: Behavior normal. Behavior is cooperative. ASSESSMENT / IMPRESSION: ICD-9-CM ICD-10-CM 1. Malaise and fatigue 780.79 R53.81 VITAMIN B12 / FOLATE R53.83 IRON & TIBC WITH % SATURATION CBC WITH DIFFERENTIAL THYROID STIMULATING HORMONE THYROID STIMULATING HORMONE CBC WITH DIFFERENTIAL IRON & TIBC WITH % SATURATION VITAMIN B12 / FOLATE 2. Diarrhea, unspecified type 787.91 R19.7 ELECTROLYTES MAGNESIUM LEVEL MAGNESIUM LEVEL ELECTROLYTES 3. History of gastric bypass V45.86 Z98.84 Plan Labs today Can try Claritin daily for ear issues - x 1 week Follow up with Dr Ash to establish PCP Pt advised to call surgeons office to schedule follow up of gastric bypass procedure Author: CALDERON Ramirez 09/05/2019 07:09 documented in this encounter Plan of Treatment Date Type Specialty Care Team Description 09/07/2019 Office Visit Gastroenterology Eboni Montejo, [facility] [place] [address] [phone] Health Maintenance Due Date Last Done Comments DTaP/Tdap/Td Vaccines (1 - 1982 Tdap) HIV SCREENING 1986 PAP SMEAR 1992 MAMMOGRAM (SCREENING) 2011 INFLUENZA VACCINE (#1) 2019 LIPID DISORDER SCREENING 06/10/2019 06/10/2018 DIABETES SCREENING 12/06/2019 12/05/2018, 10/26/2018, 06/10/2018, Additional history exists DEPRESSION SCREENING 10/03/2022 Postponed from 1983 (Other) HEPATITIS A IMMUNIZATION Aged Out No longer eligible SERIES based on patient's age to complete this topic HPV IMMUNIZATION SERIES Aged Out No longer [...] Type Problems Progress Blood Pressure Blood Pressure 130/68 Delano Dallas < 140/90 (09/04/2019 DO Miriam 3:09 PM EST) Note: This is an individualized treatment (blood pressure) goal for Marely Salcedo: Displayed above (on the left) is your [...] an individualized treatment (depression) goal for Marely Salcedo: Displayed above is your goal for a depression screening (PHQ-9) score that would indicate good control of your depression. Weight loss vs. 18 mo Lifestyle 73 (09/04/2019 3:09 PM EST) No Delano Hylton DO max (lbs) >= 10 Note: This is an individualized lifestyle goal for Marely Salcedo: Your body mass index (BMI) is more [...] ongoing basis. documented as of this encounter Procedures Procedure Name Priority Date/Time Associated Diagnosis Comments CBC WITH DIFFERENTIAL Routine 09/04/2019 3:31 Malaise and fatigue Results for this PM EST procedure are in the results section. IRON & TIBC WITH % Routine 09/04/2019 3:31 Malaise and fatigue Results for this SATURATION PM EST procedure are in the results section. VITAMIN B12 / FOLATE Routine 09/04/2019 3:31 Malaise and fatigue Results for this PM EST procedure are in the results section. THYROID STIMULATING Routine 09/04/2019 3:31 Malaise and fatigue Results for this HORMONE PM EST procedure are in the results section. MAGNESIUM LEVEL Routine 09/04/2019 3:31 Diarrhea, Results for this PM EST unspecified type procedure are in the results section. ELECTROLYTES Routine 09/04/2019 3:31 Diarrhea, Results for this PM EST unspecified type procedure are in the results section. documented in this encounter Results THYROID STIMULATING HORMONE (09/04/2019 3:31 PM EST) TSH 2.58 0.47 - 4.68 uIu/ml [facility] Specimen Blood - Blood specimen (specimen) Performing Organization Address City/State/Zipcode Phone Number [facility] [address] [place] [address] CBC WITH DIFFERENTIAL (09/04/2019 3:31 PM EST) WBC Count 6.83 3.98 - 10.04 K/uL [facility] RBC Count 4.25 3.93 - 5.22 M/UL [facility] Hemoglobin 13.3 11.2 - 15.7 g/dL [facility] Hematocrit 41.2 34.1 - 44.9 % [facility] MCV 96.9 (H) 79.4 - 94.8 FL [facility] MCH 31.3 25.6 - 32.2 PG [facility] MCHC 32.3 32.2 - 35.5 g/dL [facility] Platelet Count 282 182 - 369 K/uL [facility] MPV 10.5 9.4 - 12.3 FL [facility] RDW 12.1 11.7 - 14.4 % [facility] Neutrophil % 58.3 34.0 - 71.1 % [facility] Lymphocyte % 32.5 19.3 - 51.7 % [facility] Monocyte % 7.8 4.7 - 12.5 % [facility] Eosinophil % 0.7 0.7 - 5.8 % [facility] Basophil % 0.6 0.1 - 1.2 % [facility] nRBC % 0.0 0.0 - 0.2 % [facility] Neutrophil # 3.98 1.56 - 6.13 K/UL [facility] Lymphocyte # 2.22 1.18 - 3.74 K/UL [facility] Monocyte # 0.53 0.24 - 0.86 K/UL [facility] Eosinophil # 0.05 0.04 - 0.36 K/UL [facility] Basophil # 0.04 0.01 - 0.08 K/UL [facility] Immature Gran % 0.1 0.0 - 0.4 % [facility] Immature Gran # 0.01 0.00 - 0.03 K/uL [facility] NRBC # 0.00 0.00 - 0.12 K/uL [facility] Specimen Blood - Blood specimen (specimen) Performing Organization Address [facility] Phone Number [facility] [address] [place] [address] [phone] IRON & TIBC WITH % SATURATION (09/04/2019 3:31 PM EST) Iron Serum 70 37 - 170 UG/DL [facility] Iron Binding Capacity 336 261 - 478 UG/DL [facility] % Saturation 21 20 - 50 % [facility] Specimen Blood - Blood specimen (specimen) Performing Organization Address [facility] Phone Number [facility] [address] [place] [address] MAGNESIUM LEVEL (09/04/2019 3:31 PM EST) Magnesium 2.1 1.6 - 2.3 MG/DL [facility] Specimen Blood - Blood specimen (specimen) Performing Organization Address [facility] Phone Number [facility] [address] [place] [address] [phone] ELECTROLYTES (09/04/2019 3:31 PM EST) Chloride 100 98 - 107 mmol/L [facility] CO2 27 22 - 30 mmol/L [facility] Potassium 4.5 3.5 - 5.1 mmol/L [facility] Sodium 135 134 - 145 mmol/L [facility] Specimen Blood - Blood specimen (specimen) Performing Organization Address [facility] Phone Number [facility] [address] [place] [place] [address] [phone] VITAMIN B12 / FOLATE (09/04/2019 3:31 PM EST) Vitamin B12 381 239 - 931 pg/ml [facility] Folate 10.7 2.8 - 20.0 ng/ml [facility] Specimen Blood - Blood specimen (specimen) Performing Organization Address [facility] Phone Number [facility] [address] [place] [place] [address] documented in this encounter Visit Diagnoses Diagnosis Malaise and fatigue Other malaise and fatigue Diarrhea, unspecified type History of gastric bypass Bariatric surgery status documented in this encounter Insurance Payer Benefit Plan / Subscriber ID Effective Dates Phone Address Type Group MELCHOR Tammy YANG xxxxxxxxxxxx 2017-Present Melchor OSORIO O [employer]UE OPTION documented as of this encounter"
--- OUTSIDE RECORDS SUMMARY | 2019-10-01 12:34 | XMS REPORT | Continuity of Care Document ---
:1970 Author Organization [facility] Address [address] [place] [address] Phone Care Team Providers Name Role Phone Debbie Haynes Unavailable Unavailable Allergies, Adverse Reactions, Alerts Substance Reaction Status PSEUDOEPHEDRINE HCL Active codeine Active CLINDAMYCIN PHOSPHATE Active Medications Medication Instructions Dosage Effective Dates Status Comments (start - stop) LISINOPRIL (unknown Not Available - Active strength) CYMBALTA (unknown Not Available - Active strength) Problems Condition Effective Dates Clinical Status Comments (start - stop) Abrasion of vagina and vulva, sequela Vulvar cyst Encounter for oth general cnsl and advice [...] immunodeficiency - virus [HIV] counseling Encntr for clinical staff pharmacist exam (general) (routine) w/o abn findings Encounter for oth screening for malignant neoplasm of breast Encntr screen mammogram for malignant neoplasm of breast Noninflammatory disorder of vagina, unspecified STI Screening Yeast-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 LB Procedures Procedure Date No information Results Test Name Date and Time Measure Units Reference Range Abnormal Flag Status Comments No information Advance Directives Directive Yes / No Effective Date File Name No information Encounters Encounter Practice Location Reason(s) Diagnoses Date Provider Providers Description For Visit Copied on Encounter [facility] [place] Debbie. [address], [place], [place], [place], [address], [place]. [address] tel:+7 St, [place], [address] [place], [id number], [place] tel:[phone] [facility] Abrasion of Jul- Dennise Abreu. [facility] [place] vagina and [address] Provider: [facility] vulva, [address], [place], [place], [address], [place], [address] [facility], [address] cyst [place], [place], [place], [address]. [id number], [place] tel:[phone] [facility] Encounter for May- Dennise Abreu. [facility] [place] ot general cnsl [address] Provider: [place] and advice on [address], [place], [place], [address], [place], [address] [facility], [facility] ntr screen for [place]. [address] infections w [address], St, [place], sexl mode [place], [place], [place], [address]. [id number], iral infection [place] of urogenital tel:[phone], [phone] unspecified [facility] Herpesviral Oct- Bettina [facility] [place] infection of Niru. [facility] Provider: [facility] urogenital [address], [place] system, [place], [place], [place] J, [facility], [facility] unspecifiedCandi [address], [place]. [address] diasis of vulva tel:+[address], [address], [place], and vagina [address] [place], [place], [address]. [id number], tel:[phone] tel:[phone] [facility] Abnormal uterine Aug- Dennise Abreu. [facility] [place] and vaginal [address] [place] bleeding, [address], [place], [place], [address], [place], [address], [place], [place], [id number], [place] tel:[phone] [facility] Abnormal uterine Ron-2 [place] Lois. Parenthood [facility] and vaginal [address] [place] bleeding, [address], [place], [place], [address], [place], [address], [place], [place], [id number], [place] tel:[phone] [facility] Abnormal uterine Mar-1 Parete [facility] [place] and vaginal Lorin. [address] Provider: [place] bleeding, [address], [place] unspecifiedCervi [place], [place], [place], [place], [address] estela high risk [address]. [address] HPV DNA test tel:[phone], St, [place], positive [address] [place], [place], [address]. [id number], tel:[phone] [place] [phone] tel:[phone] [facility] Human Ron-0 Dennise Abreu. [facility] [place] immunodeficiency [address] Provider: [place] virus [HIV] [address], [place], [place], [address], [place], [address] [place] [address] for clinical staff pharmacist exam [place]. [address] (general) St, St, [place], (routine) w/[place], [place], [place], [address]. [id number], findingsEncounte [place] r for oth tel:[phone] screening for [phone] malignant neoplasm of breastEncntr screen mammogram for malignant neoplasm of breast [facility] Noninflammatory Mar-2 [facility] [place] disorder of Luisa. [address] vagina, [address], [place], [place], [place], [address]. [address] tel:[phone] St, [place], [address] [place], [id number], [place] tel:[phone] [facility] STI January- [facility] [place] ScreeningYeast-v Carol. [address]vovaginalGYN [address], [place] Exam, Routine [place], [place], [place], [address] [place] [address]. [address] tel:[phone] [facility], [address] [place], [id number], tel:[phone] Family History Family Member Diagnosis Age At [...] type Covered republican ID Authorization(s) [employer] [facility] [id number] Social History Type Description Quantity Date Captured Comments Alcohol Use Details Unknown Caffeine Use Details Unknown Tobacco Use Status Unknown Smoking Status Never smoker Sex Female Vital Signs Date / Height Weight BMI Pulse Blood Temperature Respiratory Body Head BMI Pulse Inhaled Time: Rate Pressure Rate Surface Circumference percentile [place] Area No information Chief Complaint And Reason For Visit No information Reason For Referral Reason For Referral No information Plan Of Treatment Date Type Action Status Referral Ordered: ordered Manish Payne (related to Abnormal uterine and vaginal bleeding, unspecified) Referral Referred To: ordered Manish Payne [address] [place], [address] [phone] Ordered: Referrals: Glue Plant Operator. Manish Payne. Evaluate and treat History Of Present Illness Encounter Date Complaint History Of Present Illness No information Functional Status Date Functional Assessment No information Medications Administered Medication Instructions Dosage Effective Dates (start - stop) Status Comments No information Instructions Date Instruction Additional Information No information Assessments Type Assessment Date No information Goals Health Concern Goal Type Priority Status Date No information Medical Equipment Description Device [place] Device Identifier Effective Dates (start - stop ) Status No information Mental Status Date Cognitive Assessment No information Health Concerns Observation Date No information Concern Status Date No information
--- OUTSIDE RECORDS SUMMARY | 2019-10-01 12:34 | XMS REPORT | Continuity of Care Document ---
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 [facility] [place] [address], [place], [place], [address], [place], [address], [place], [place], [id number], [place] tel:[phone] [facility] Abrasion of Jul- Dennise Abreu. Referring [facility] [place] vagina and [address] Provider: Southern vulva, [address], [place], [place], [address], [place], [address] [place], [address] cyst [place], St, [place], [place], [place], [address]. [id number], [place] tel:[phone] [facility] Encounter for May- Dennise Abreu. Referring [facility] [place] ot general cnsl [address] Provider: Southern and advice on [address], [place], [place], [address], [place], [address] [place], 620 ntr screen for [place]. [address] [place] infections w St, St, [place], sexl mode [place], [place], [place], [address]. [id number], iral infection [place] of urogenital tel:[phone], [phone] unspecified [facility] Herpesviral Bettina Referring [facility] [place] infection of Niru. 620 Provider: [facility] urogenital [address], [place] system, [place], [place]ettina J, [facility], 620 unspecifiedCandi [address], [place]. [address] diasis of vulva tel:+[phone], St, [place], and vagina [address] [place], [place], [address]. [id number], tel:[phone] tel:[phone] [facility] Abnormal uterine Apr- Dennise Abreu. [facility] [place] and vaginal [address] bleeding, [address], [place], [place], [address], [place], [address], [place], [place], [id number], [place] tel:[phone] [facility] Abnormal uterine Mar-2 [place] Lois. [facility] [place] and vaginal [address] Southern bleeding, [address], [place], [place], [address], [facility], [address], [place], [place], [id number], [place] tel:[phone] [facility] Abnormal uterine Mar-1 P[place]te Referring [facility] [place] and vaginal Lorin. [address] W Provider: [place] bleeding, [address], Lroin [place] unspecifiedCervi [place], [place], [place], [place], 620 estela high risk [address]. [address] HPV DNA test tel:[phone] [address], St, [place], positive [address] [place], [place], [address]. [id number], tel:[phone] [place] [phone] tel:[phone] [facility] Human Mar-0 Dennise Abreu. Referring [facility] [place] immunodeficiency [address] Provider: [place] virus [HIV] [address] St, [place], [place], [address], [place], 620 [facility], 620 for environmental lead exam [place]. [address] (general) St, St, [place], (routine) w/o [place], [place], [place], [address]. [id number], findingsEncounte [place] r for oth tel:[phone] screening for [phone] malignant neoplasm of breastEncntr screen mammogram for malignant neoplasm of breast [facility] Noninflammatory Nov- Rap[facility] [place] disorder of Luisa. [address] [place] vagina, [address], [place], [place], [place], [address] [address] tel:[phone] St, [place], [address] [place], [id number], [place] tel:[phone] [facility] STI January- [facility] [place] ScreeningYeast-v Carol. [address]aginalGYN [address], [place] Exam, Routine [place], [place], [place], 620 WWE [address]. [address] tel:[phone] St, [place], [address] [place], [id number], [place] tel:[phone] Family History Family Member Diagnosis Age At [...] information Payers Payer name Insurance type Covered alliance party ID Authorization(s) Blue Choice [facility] [id number] Social History Type Description Quantity Date Captured [...] Type Action Status Referral Ordered: ordered Manish Econotherm (related to Abnormal uterine and vaginal bleeding, unspecified) Referral Referred To: ordered Manish Econotherm [address] [place], [address] [phone] Ordered: Referrals: Nail Kegger. Manish Payne. Evaluate and treat History Of [...] Date No information Medical Equipment Description Device [place] Device Identifier Effective Dates (start - stop ) Status No information Mental Status Date Cognitive Assessment No information Health Concerns Observation Date No information Concern Status Date No information
--- OUTSIDE RECORDS SUMMARY | 2019-10-01 12:34 | XMS REPORT | Continuity of Care Document ---
:1970 Author Organization [facility] Address [address] [place] [address] Phone Care Team Providers Name Role Phone Benji BERNARD, Luisa Unavailable Unavailable Allergies, Adverse Reactions, Alerts Substance Reaction Status morphine Nausea / Vomiting Active PSEUDOEPHEDRINE HCL Active codeine Active CLINDAMYCIN PHOSPHATE Active Medications Medication Instructions Dosage Effective Dates Status Comments (start - stop) OMEPRAZOLE Not Available - Active (unknown strength) CYMBALTA (unknown Not Available - Active strength) LISINOPRIL Not Available - No Longer (unknown strength) Active Problems Condition Effective Dates Clinical Status Comments (start - stop) Human immunodeficiency - virus [HIV] counseling Encounter for screening for - human immunodeficiency virus Encntr screen for infections w sexl mode of transmiss Abrasion of vagina and vulva, [place] [...] immunodeficiency - virus [HIV] counseling 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 LB Procedures Procedure Date PREVENTIVE COUNSELING, 8-14 Minutes HIV-1/HIV-2, SINGLE ASSAY OTHER Medical Services Contraceptive Uniformer.Svc. Other Uniformer.Svc. STI ROUTINE VENIPUNCTURE Results Test Name Date and Time Measure Units Reference Range Abnormal Flag Status Comments No information Advance Directives Directive Yes / No Effective Date File Name No information Encounters Encounter Practice Location Reason(s) Diagnoses Date Provider Providers Description For Visit Copied on Encounter PREVENTIVE [facility] STI Human Benji COUNSELING, [facility] [place] Testing No immunodeficiency Luisa. [address] 8-14 Minutes Of Greater Symptoms virus [HIV] [address] [place], [place], (F) (chief counselingEncoun [place], [place], [address] complaint) [place] [address]. , New screening for tel:[phone] [place], human [id number], immunodeficiency [place] virusEncntr tel:[phone] screen for [id number] infections w sexl mode of transmiss [facility] Abrasion of [facility]ennise [facility]breu. [facility] vagina and [address] [place] Provider: Of [facility] [place] vulva, [facility], [facility], [place], [address], [place], [address] cyst [place] [place], [place], [place], [id number], [place], [address]. [place] tel:[phone] [facility] Encounter for Dennise Abreu. [facility] ot general cnsl [address] [place] Provider: Of [facility] [place] and advice on [facility], [place], [address], [place], [address] ntr screen for [place]. [address] [place] [address], New infections w [place], [place], sexl mode of [place], [id number], [place], [address]. [place] iral infection tel:[phone] of urogenital [address] system, unspecified [facility] Herpesviral Bettina Referring [facility] [place] infection of 5-201 Niru. 620 Provider: Of Greater urogenital [address], Niru [place], system, [place], [place], Bettina J, [address] unspecifiedCandi [address], [place]. [address], New diasis of vulva tel:[phone], [place], and vagina [address] [place], [id number], [place], [address]. [place] tel:+60 tel:[phone] [facility] Abnormal uterine Aug-2 Dennise Abreu. [facility] [place] and vaginal 4-201 [address] [place] Of Greater bleeding, [address], [place], [place], [address], [address], [place], [place], [id number], [place] tel:[phone] [facility] Abnormal uterine Ron-2 Dennise Abreu. [facility] [place] and vaginal 5-201 [address] [place] Of Greater bleeding, [address], [place], [place], [place], [address], [address], [place], [place], [id number], [place] tel:[phone] [facility] Abnormal uterine Mar-1 Parete Referring [facility] [place] and vaginal 7 [place]. [address] W Provider: Of Greater bleeding, [address], [place], unspecifiedCervi [place], [place], P[place]te, [address] estela high risk [address]. [address] , New HPV DNA test tel:+ [address], [place], positive [address] [place], [id number], [place], [address]. [place] tel:+60 tel:[phone] [facility] Human Ron-0 Dennise Abreu. Referring [facility] [place] immunodeficiency 2- [address] [place] Provider: Of Greater virus [HIV] [address] St, [place], [place], [place], [address], [place], 620 [address] for planting material carrier exam [place]. [address], New (general) St, [place], [place], (routine) w/o [place], [id number], [place], [address]. [place] findingsEncounte tel:[phone] r for oth [phone] screening for malignant neoplasm of breastEncntr screen mammogram for malignant neoplasm of breast [facility] Noninflammatory Nov- Raphael[facility] [place] disorder of Luisa. [address] Of Greater vagina, [address] [place] , [place], unspecified [place], [place], [address] [address]. [facility] tel:+[phone] [place], [id number], [place] tel:[phone] [facility] STI January- [facility] [place] ScreeningYeast-v Carol. [address] Of Greater ulvovaginalGYN [address], [place], Exam, Routine [place], [place], [address] WWE [address]. [facility] tel:+[phone] [place], [id number], tel:[phone] Family History Family Member Diagnosis Age At [...] Covered alliance party ID Authorization(s) Blue Choice [facility] [id number] Social History Type Description Quantity Date Captured [...] For Visit Most recent encounter only, dated '09/29/2019 15:20'. STI Testing No Symptoms (F) (chief complaint) Reason For Referral Reason For Referral No information Plan Of Treatment Date Type Action Status Referral Ordered: ordered Manish Payne (related to Abnormal uterine and vaginal bleeding, unspecified) Referral Referred To: ordered Manish Payne [address] [place], [phone] Ordered: Referrals: Propulsion Systems Engineer. Manish Payne. Evaluate and treat History Of Present Illness Encounter Date Complaint History Of Present Illness No information Functional Status Date Functional Assessment No information Medications Administered Medication Instructions Dosage Effective Dates (start - stop) Status Comments No information Instructions Date Instruction Additional Information No information Assessments Type Assessment Date assessment Human immunodeficiency virus [HIV] counseling assessment Encounter for screening for human immunodeficiency virus 2019 assessment Encntr screen for infections w sexl mode of transmiss Goals Health Concern Goal Type Priority Status Date No information Medical Equipment Description Device [place]y [place] Device Identifier Effective Dates (start - stop ) Status No information Mental Status Date Cognitive Assessment No information Health Concerns Observation Date No information Concern Status Date No information
[2019-10-01 12:52] VITALS: BP 123/82
[2019-10-01 13:27] LABS: Influenza B Molecular POSITIVE (Negative)
--- NOTE | 2019-10-01 13:34 | UC ---
FLU HPI - HPI Summary HPI Summary: 36 hours fever chills body aches and sore throat - History of Current Complaint Chief Complaint: UCGeneralIllness Stated Complaint: ACHES, AND SORE THROAT Time Seen by Provider: 10/01/19 13:18 Hx Obtained From: Patient Hx Last Menstrual Period: sporadic ?: No Onset/Duration: Sudden Onset, Lasting Days - 1.5 Pain Intensity: 5 Pain Scale Used: 0-10 Numeric Associated Signs & Symptoms: Positive: Fever, Myalgia, Cough, Sore Throat, Headache Related Hx: Possible Flu/Infectious Exposure - works in longterm - Allergy/Home Medications Allergies/Adverse Reactions: Allergies Allergy/AdvReac Type Severity Reaction Status Date / Time clindamycin Allergy Rash Verified 10/01/19 12:45 latex Allergy Rash Verified 10/01/19 12:45 pseudoephedrine Allergy Anaphylatic Verified 10/01/19 12:45 Shock codeine AdvReac See Comment Verified 10/01/19 12:45 morphine AdvReac n/v Verified 10/01/19 12:45 Home Medications: Home Medications DULoxetine DR CAP* [Cymbalta CAP*] 120 mg PO DAILY 10/01/19 [History Confirmed 10/01/19] Phenylephrine/Dm/Acetaminop/GG [Multi-Symptom Cold Caplet] 1 each PO ONCE [History Confirmed 10/01/19] PMH/Surg Hx/FS Hx/Imm Hx Previously Healthy: No GI/ History: Gastroesophageal Reflux Psychological History: Depression - Surgical History Surgical History: Yes Surgery Procedure, Year, and Place: Gastric sleeve January 2019. breast reduction 2000. tubal ligation 2007. gall bladder removed 1989. benign tumor removed from uterus 12/07/12. GANGLION CYST. Uterine Ablation 2012. 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 [employer] Most Recent Tetanus Shot: up to date - she thinks in 2014 she received it Most Recent Pneumonia Vaccination: unsure Review of Systems All Other Systems Reviewed And Are Negative: Yes Constitutional: Positive: Fever, Chills, Fatigue Skin: Positive: Negative Eyes: Positive: Negative ENT: Positive: Sore Throat, Sinus Congestion Respiratory: Positive: Negative Cardiovascular: Positive: Negative Gastrointestinal: Positive: Negative Genitourinary: Positive: Negative Motor: Positive: Negative Neurovascular: Positive: Negative Musculoskeletal: Positive: Arthralgia, Myalgia Neurological: Positive: Negative Psychological: Positive: Negative Is Patient Immunocompromised?: No Physical Exam Triage Information Reviewed: Yes Appearance: Well-Nourished, Ill-Appearing - mild, Pain Distress - mild Vital Signs: Initial Vital Signs Temp 99.1 F 10/01/19 12:47 Pulse 67 10/01/19 12:47 Resp 18 10/01/19 12:47 BP 123/82 10/01/19 12:47 Pulse Ox 100 10/01/19 12:47 Vital Signs Reviewed: No Eye Exam: Normal Eyes: Positive: Conjunctiva Clear ENT Exam: Normal ENT: Positive: Normal ENT inspection, Hearing grossly normal, Pharynx normal, TMs normal. Negative: Nasal congestion, Tonsillar swelling, Trismus, Muffled voice, Hoarse voice, Dental tenderness, Sinus tenderness, Uvula midline Dental Exam: Normal Neck exam: Normal Neck: Positive: Supple, Nontender, No Lymphadenopathy Respiratory Exam: Normal Respiratory: Positive: Chest non-tender, Lungs clear, Normal breath sounds, No respiratory distress, No accessory muscle use Cardiovascular Exam: Normal Cardiovascular: Positive: RRR, No Murmur, Pulses Normal, Brisk Capillary Refill Musculoskeletal Exam: Normal Musculoskeletal: Positive: Strength Intact, ROM Intact, No Edema Neurological Exam: Normal Neurological: Positive: Alert, Muscle Tone Normal Psychological Exam: Normal Skin Exam: Normal Diagnostics - Laboratory Lab Results: influenza B+ Flu Course/Dx - Course Course Of Treatment: tamiflu, otc medications for symptom relief, off work for 7 days follow with pcp prn - Differential Dx/Diagnosis Provider Diagnosis: Influenza B Discharge ED - Sign-Out/Discharge Documenting (check all that apply): Patient Departure All imaging exams completed and their final reports reviewed: No Studies - Discharge Plan Condition: Stable Disposition: HOME Prescriptions: Oseltamivir CAP* [Tamiflu CAP*] 75 mg PO BID #10 cap Patient Education Materials: Influenza (ED) Forms: *Work Release Referrals: Kieran Ash MD [Primary Care Provider] - - Billing Disposition and Condition Condition: STABLE Disposition: Home
== END 2019-10-01 13:42 | disposition home or self-care (01) ==
LOC: UCEAST 12:27
DX: J10.1 Influenza due to other identified influenza virus with other respiratory manifestations (principal); F32.9 Major depressive disorder, single episode, unspecified; Z79.899 Other long term (current) drug therapy; Z88.1 Allergy status to other antibiotic agents; Z91.040 Latex allergy status; Z88.8 Allergy status to other drugs, medicaments and biological substances; Z88.5 Allergy status to narcotic agent
CPT/HCPCS: 87651; 99212; G0463